=== PATIENT | female | born 1950 | race Caucasian/White ===

== ENCOUNTER 2016-07-03 06:58 | Day surgery (SDC) | payer MEDICARE, OTHER ==
[2016-07-02 09:47] VITALS: BMI 21.4
--- NOTE | 2016-07-03 04:30 | P.GSHP ---
History of Present Illness H&P Date: 07/03/16 CHIEF COMPLAINT: GERD HISTORY OF PRESENT ILLNESS: The patient is a 65-year-old female who presents reports gastroesophageal reflux disease. Upper endoscopy was offered for further evaluation and management. PAST MEDICAL HISTORY: Please see list. PAST SURGICAL HISTORY: Please see list. MEDICATIONS: Please see list. ALLERGIES: Please see list. SOCIAL HISTORY: No illicit drug use FAMILY HISTORY: No reports of Crohn disease or ulcerative colitis. REVIEW OF ORGAN SYSTEMS: CONSTITUTIONAL: No reports of fevers or chills. GI: Denies any blood in stools or constipation. PHYSICAL EXAM: VITAL SIGNS: Stable GENERAL: Well-developed and pleasant in no acute distress. HEENT: No scleral icterus. Extraocular movements grossly intact. Moist buccal mucosa. NECK: Supple without lymphadenopathy. CHEST: Unlabored respirations. Equal bilateral excursions. CARDIOVASCULAR: Regular rate and rhythm. Distal 2+ pulses. ABDOMEN: Soft, nondistended. MUSCULOSKELETAL: No clubbing, cyanosis, or edema. ASSESSMENT: 1. Gastroesophageal reflux disease PLAN: 1. Recommend proceeding with an upper endoscopy Past Medical History Past Medical History: Blood Disorder, Deep Vein Thrombosis (DVT), Fibromyalgia, GERD/Reflux, Osteoarthritis (OA), Thyroid Disorder Additional Past Medical History / Comment(s): MULTIPLE SCLEROSIS. ADRENAL INSUFFICIENCY & PITUITARY INSUFFICIENCY. Hypotension ,vasopressor syncope, FACTOR V LEIDEN. Iron deficient anemia. Hypoglycemia. Chronic nausea. DVT QUINCY LEGS, UTI'S. VARICOSE VEINS. HX: HTN RESOLVED WITH WT LOSS. Daily steroid, osteoporosis, raynauds, insomnia History of Any Multi-Drug Resistant Organisms: None Reported Past Surgical History: Adenoidectomy, Back Surgery, Bariatric Surgery, Section, Cholecystectomy, Hernia Repair, Joint Replacement, Orthopedic Surgery, Tonsillectomy Additional Past Surgical History / Comment(s): HAD ORIGINAL STOMACH STAPLING BY DR. WILLSON, THE REDONE BY DR. WING WITH "3/4" OF STOMACH REMOVED. ORTHO: Quincy feet, quincy hand surg-mult, NECK SURGERY x2, RIGHT ROTATOR CUFF, [place]cy hip replacement, LEFT knee replacement. Left eye surg (TEAR DUCT). Nasal surg. C- section x2. Hernia repair with excess skin removed.back x 2, screw left foot/ removal of neuroma, screws left hand thumb Past Anesthesia/Blood Transfusion Reactions: Previous Problems w/ Anesthesia Additional Past Anesthesia/Blood Transfusion Reaction / Comment(s): States "unable to urinate after surgery for approx 4 days",no problems with prior blood transfusion Past Psychological History: Depression Smoking Status: Never smoker Past Alcohol Use History: Rare Past Drug Use History: None Reported - Past Family History Mother Family Medical History: Cancer, Pulmonary Embolus Additional Family Medical History / Comment(s): bladder cancer, kidney removed, multiple heart bypass surgeries, Father Family Medical History: Cancer, Deep Vein Thrombosis (DVT) Additional Family Medical History / Comment(s): CABG,colorectal CA Sister(s) Family Medical History: Pulmonary Embolus Medications and Allergies Home Medications Medication Instructions Recorded Confirmed Type Cholecalciferol [Vitamin D3] 5,000 unit PO BID 11/04/13 07/02/16 History Loratadine [Claritin] 10 mg PO QAM 11/04/13 07/02/16 History Montelukast [Singulair] 10 mg PO HS 11/04/13 07/02/16 History Lidocaine 5% Oint [Xylocaine 5% 1 applic TOPICAL TID 12/09/13 07/02/16 History Oint] Levothyroxine Sodium [Synthroid] 50 mcg PO QAM 02/11/14 07/02/16 History Ondansetron HCl [Zofran] 8 mg PO Q8HR PRN 06/29/14 07/02/16 History Hydrocortisone Sod Succinate 100 mg INJ DIRECTED PRN 08/10/14 07/02/16 History [Solu-Cortef] Baclofen [Lioresal] 10 mg PO QID 09/28/15 07/02/16 History Biotin 2,500 mcg PO DAILY 09/28/15 07/02/16 History Folic Acid 800 mcg PO DAILY 09/28/15 07/02/16 History Furosemide [Lasix] 40 mg PO QAM 09/28/15 07/02/16 History Hydrocortisone [Cortef] 5 mg PO QAM 09/28/15 07/02/16 History Midodrine [ProAmatine] 5 mg PO BID 09/28/15 07/02/16 History Gabapentin [Neurontin] 200 mg PO QID 06/06/16 07/02/16 History Glucosamine HCl/Chondr Chi A Na 1 each PO DAILY 06/06/16 07/02/16 History [Osteo Bi-Flex Caplet] Ibuprofen [Motrin] 800 mg PO Q8HR PRN 06/06/16 07/02/16 History Interferon Beta-1A [Avonex Pen] 0.5 ml IM MOFR 06/06/16 07/02/16 History Teriparatide [Forteo] 20 mcg SQ DAILY 06/06/16 07/02/16 History Aspirin EC [Ecotrin] 325 mg PO DAILY 06/19/16 07/02/16 History Furosemide [Lasix] 20 mg PO 1600 06/19/16 07/02/16 History Interferon Beta-1A [Avonex Pen] 0.75 ml IM WE 06/19/16 07/02/16 History Multivitamin [Multivitamins Adult 2 each PO DAILY 06/19/16 07/02/16 History Gummies] Nortriptyline HCl [Pamelor] 10 mg PO HS 06/19/16 07/02/16 History Saliva Stimulant Agents Comb.3 1 spray PO BID PRN 06/19/16 07/02/16 History [Biotene Moisturizing Mouth] Allergies Allergy/AdvReac Type Severity Reaction Status Date / Time amoxicillin trihydrate Allergy Nausea & Verified 07/02/16 09:29 [From Augmentin] Vomiting,DIARRHEA,HIVES ciprofloxacin HCl Allergy Rash/Hives, Verified 07/02/16 09:29 [From Cipro] NAUSEA/VOMITING/DIARRHEA clarithromycin [From Biaxin] Allergy Rash/Hives, Verified 07/02/16 09:29 NAUSEA/VOMI TING/DIARRH EA diflunisal [From Dolobid] Allergy Rash/Hives,upset Verified 07/02/16 09:29 stomach ergotamine tartrate Allergy Anaphylaxis Verified 07/02/16 09:29 [From Cafergot] ,SOB metoclopramide HCl Allergy "pseudo Verified 07/02/16 09:29 [From Reglan] parkinsons" metronidazole [From Flagyl] Allergy hives,upset Verified 07/02/16 09:29 stomach,migraine sucralfate [From Carafate] Allergy Swelling Verified 07/02/16 09:29 sulfamethoxazole Allergy Rash/Hives, Verified 07/02/16 09:29 [From Bactrim] NAUSEA,MIGR AINES,diarr hea trimethoprim [From Bactrim] Allergy Rash/Hives, Verified 07/02/16 09:29 NAUSEA,MIGR AINES,diarr hea aspirin AdvReac STATES Verified 07/02/16 09:29 "STOMACH DOES NOT TOLERATE ASPIRIN" can take ecotrin Metronidazole HCl AdvReac hives,upset Verified 07/02/16 09:29 [From Flagyl] stomach,migraine potassium clavulanate AdvReac Nausea & Verified 07/02/16 09:29 [From Augmentin] Vomiting,DIARRHEA,HIVES diflusnisol Allergy Rash/Hives Uncoded 07/02/16 09:31 IV Tylenol Allergy Rash/Hives Uncoded 07/02/16 09:29 states "can take oral tylenol" oral morphine AdvReac Nausea & Uncoded 07/02/16 09:29 Vomiting & Diarrhea
[~2016-07-03 06:58] MED LIST: LACTATED RINGERS 1,000 ML IV SCH; LIDOCAINE 1% 20 ML VIAL (10MG/ML) FOR IV START INTRADERMA PRN
[2016-07-03 08:04] LABS: Glucose,Whole Blood 61 mg/dL (75-99)
[2016-07-03 08:04] LABS: Glucose,Whole Blood <20 mg/dL (75-99)
[2016-07-03 08:06] VITALS: RESP 16; TEMP 97.3
[2016-07-03] MEDS ORDERED: DEXTROSE 50%-WATER 50 ML SYRINGE IVP ONE (08:06)
[2016-07-03] MEDS ORDERED: LIDOCAINE 1% INJ 10MG/ML (20 ML MDV) ONE (08:09)
[2016-07-03] MEDS ORDERED: PROPOFOL 10 MG/ML 20 ML VIAL IV ONE (08:09)
--- NOTE | 2016-07-03 08:29 | P.PCN ---
Date of Procedure: 07/03/16 Description of Procedure: PREOPERATIVE DIAGNOSIS: Dysphagia. s/p Juan Ramon-en-y gastric bypass. Nausea with vomiting. Hypoglycemia. POSTOPERATIVE DIAGNOSIS: Dysphagia. s/p Juan Ramon-en-y gastric bypass. Nausea with vomiting. Hypoglycemia. Gastrojejunal stricture. OPERATION: Esophagogastrojejunoscopy with balloon dilatation from 16 to 20 mm. SURGEON: Linda Ellsworth MD ANESTHESIA: MAC. INDICATIONS: The patient is a 65-year-old female who presents with a history of dysphagia, gastric bypass including nausea and vomiting. Benefits and risks of the procedure were described. Informed consent was obtained. DESCRIPTION: The patient was brought into the endoscopy suite and laid in the left lateral decubitus position. After a timeout was confirmed, the procedure was initiated. An Olympus gastroscope was passed along the posterior oropharynx down to the distal esophagus where the squamocolumnar junction was unremarkable. The gastric pouch was entered. A gastrojejunal stricture of 16 mm was found as the adult gastroscope was 9.5 mm in size. A Sensing Electromagnetic Plus balloon dilator was placed through the scope. Final insufflation up to 20 mm was performed with a total of 2 minutes. The scope was advanced up to 60 cm from the incisors into the Juan Ramon limb. A micropouch was identified. The mucosa of the gastrojejunal anastomosis was intact. Tortuous distal esophagus. However no chronic gastrojejunal marginal ulcer was encountered. No full- thickness injury was encountered. The GI tract was desufflated. The patient tolerated the procedure well. FINDINGS: Squamocolumnar junction with LA grade B erosive esophagitis at 38 cm. Stricture of approximately 16 mm encountered. No chronic gastrojejunal ulceration encountered. Successful balloon dilatation to 20 mm. Diaphragmatic hiatus at 39 cm. Micro-pouch. RECOMMENDATIONS: Upper endoscopy as needed. Plan - Discharge Summary Discharge Medication List Cholecalciferol [Vitamin D3] 5,000 unit PO BID 11/04/13 [History] Loratadine [Claritin] 10 mg PO QAM 11/04/13 [History] Montelukast [Singulair] 10 mg PO HS 11/04/13 [History] Lidocaine 5% Oint [Xylocaine 5% Oint] 1 applic TOPICAL TID 12/09/13 [History] Levothyroxine Sodium [Synthroid] 50 mcg PO QAM 02/11/14 [History] Ondansetron HCl [Zofran] 8 mg PO Q8HR PRN 06/29/14 [History] Hydrocortisone Sod Succinate [Solu-Cortef] 100 mg INJ DIRECTED PRN 08/10/14 [ History] Baclofen [Lioresal] 10 mg PO QID 09/28/15 [History] Biotin 2,500 mcg PO DAILY 09/28/15 [History] Folic Acid 800 mcg PO DAILY 09/28/15 [History] Furosemide [Lasix] 40 mg PO QAM 09/28/15 [History] Hydrocortisone [Cortef] 5 mg PO QAM 09/28/15 [History] Midodrine [ProAmatine] 5 mg PO BID 09/28/15 [History] Hydrocodone/Acetaminophen [[place] 5-325] 1 - 2 each PO Q6HR PRN #60 tab 10/06/15 [Rx] Gabapentin [Neurontin] 200 mg PO QID 06/06/16 [History] Glucosamine HCl/Chondr Chi A Na [Osteo Bi-Flex Caplet] 1 each PO DAILY 06/06/16 [ History] Ibuprofen [Motrin] 800 mg PO Q8HR PRN 06/06/16 [History] Interferon Beta-1A [Avonex Pen] 0.5 ml IM MOFR 06/06/16 [History] Teriparatide [Forteo] 20 mcg SQ DAILY 06/06/16 [History] Aspirin EC [Ecotrin] 325 mg PO DAILY 06/19/16 [History] Furosemide [Lasix] 20 mg PO 1600 06/19/16 [History] Interferon Beta-1A [Avonex Pen] 0.75 ml IM WE 06/19/16 [History] Multivitamin [Multivitamins Adult Gummies] 2 each PO DAILY 06/19/16 [History] Nortriptyline HCl [Pamelor] 10 mg PO HS 06/19/16 [History] Saliva Stimulant Agents Comb.3 [Biotene Moisturizing Mouth] 1 spray PO BID PRN 06/19/16 [History]
[2016-07-03 08:33] VITALS: BP 96/61; PULSE 61
[2016-07-03 08:38] LABS: Glucose,Whole Blood 103 mg/dL (75-99)
== END 2016-07-03 09:13 | disposition home or self-care (01) ==
LOC: ORWHC2ENDO 06:58
PROVIDERS: ATTEND Surgery Plastic and Reconstructive Surgery
DX: K31.89 Other diseases of stomach and duodenum (principal); K21.0 Gastro-esophageal reflux disease with esophagitis; Z98.84 Bariatric surgery status; E16.2 Hypoglycemia, unspecified; M79.7 Fibromyalgia; M19.90 Unspecified osteoarthritis, unspecified site; E07.9 Disorder of thyroid, unspecified; G35 Multiple sclerosis; D68.51 Activated protein C resistance; F32.9 Major depressive disorder, single episode, unspecified; E27.40 Unspecified adrenocortical insufficiency; E23.0 Hypopituitarism; M81.0 Age-related osteoporosis without current pathological fracture; Z86.718 Personal history of other venous thrombosis and embolism; Z79.82 Long term (current) use of aspirin; Z79.1 Long term (current) use of non-steroidal anti-inflammatories (NSAID); Z79.52 Long term (current) use of systemic steroids; Z79.891 Long term (current) use of opiate analgesic; Z79.899 Other long term (current) drug therapy; Z88.6 Allergy status to analgesic agent; Z88.1 Allergy status to other antibiotic agents; Z88.2 Allergy status to sulfonamides; Z88.8 Allergy status to other drugs, medicaments and biological substances
CPT/HCPCS: 43245; J2001; J2704; C1726; 44799; 99153

== ENCOUNTER → 2016-07-31 | Outpatient (CLI) | payer MEDICARE, OTHER ==
[2016-07-31 16:01] VITALS: BP 146/72; PULSE 63; RESP 16; TEMP 97.4; BMI 22.0
--- NOTE | 2016-08-04 17:42 | P.PN ---
Progress Note - Text DATE OF SERVICE: 07/31/2016 CHIEF COMPLAINT: History of dysphagia. HISTORY OF PRESENT ILLNESS: Mouna Jones is a 65-year-old female with multiple bariatric procedures. She had a revision of Juan Ramon-en-Y gastric bypass in 2013 at an outside institution. Her highest weight is 190 pounds. For her height of 5 feet, her ideal body weight is 127 pounds. Today she comes in weighing 114 pounds. She has lost 1 pound in approximately 2 months. Her total weight loss is 76 pounds. She has achieved 120% excess weight loss. Body mass index is reduced from 36.9 down to 22.2. Total BMI point reduction is 14.7. She actually reports mostly dysphagia to solid foods along the neck and oral pharyngeal phase. She has previous history of cervical spine surgery. She also has developed intolerance to gluten as well as soy and milk allergy. Now she presents for further evaluation and management. She has completed an upper endoscopy balloon dilatation without moderate improvement of her upper esophageal and swallowing problems. PAST MEDICAL HISTORY: 1. Morbid obesity, resolved. 2. Osteoporosis. 3. Gastroesophageal reflux disease. 4. Osteoarthritis. 5. Hypertension. 6. Fibromyalgia. 7. Spinal stenosis. 8. Dyslipidemia. PAST SURGICAL HISTORY: 1. Lap band and gastroplasty reversed. 2. Tonsillectomy. 3. Adenoidectomy. 4. Cholecystectomy. 5. Left tear duct repair. 6. . 7. Left foot surgery. 8. Renal surgery. 9. Right foot fracture. 10. Left hand surgery. 11. Right hand surgery. 12. EGD. 13. Colonoscopy. 14. Juan Ramon-en- Y gastric bypass done open. 15. Upper endoscopy with balloon dilatation. MEDICATIONS: 1. Forteo. 2. Biotin. 3. Zofran. 4. Pamelor. 5. Multivitamin. 6. Singulair. 7. Midodrine. 8. Claritin. 9. Synthroid. 10. Avonex. 11. Motrin. 12. Solu-Cortef. 13. Osteo Bi-Flex. 14. Neurontin. 15. Lasix. 16. Folic acid. 17. Vitamin D. 18. Baclofen. 19. Aspirin. 20. [place]. ALLERGIES: 1. AMOXICILLIN. 2. CIPROFLOXACIN. 3. BIAXIN. 4. DOLOBID. 5. CAFERGOT. 6. REGLAN. 7. FLAGYL. 8. CARAFATE. 9. BACTRIM. 10. ASPIRIN. 11. AUGMENTIN. 12. DIFLUSNISOL. 13. IV TYLENOL. 14. ORAL MORPHINE. SOCIAL HISTORY: No current tobacco use. History of occasional alcohol use. FAMILY HISTORY: Significant for morbid obesity including breast cancer, colon cancer and stomach cancer. REVIEW OF SYSTEMS: HEENT: Reports dysphagia, particularly of the oropharyngeal phase. GASTROINTESTINAL: History of gluten and soy milk allergy. Has dumping syndrome with her allergies. MUSCULOSKELETAL: Has diffuse osteoarthritis including multiple previous fractures. CONSTITUTIONAL: Her highest weight is 190 pounds. For her height of 5 feet, her ideal body weight is 127 pounds. Today she comes in weighing 114 pounds. She has lost 1 pound in approximately 2 months. Her total weight loss is 76 pounds. She has achieved 120% excess weight loss. Body mass index is reduced from 36.9 down to 22.2. Total BMI point reduction is 14.7. RHEUMATOLOGIC: New diagnosis of multiple sclerosis causing lupus. ENDOCRINE: Has hypoglycemia. Also has thyroid disorder. CARDIOVASCULAR: No recent chest pain or heart attacks. GENITOURINARY: Denies increasing urinary frequency or blood in urine. NEUROLOGIC: History of headaches, including tingling of the distal extremities. PSYCH: No reports or suicidal ideation. HEMATOLOGIC: Denies any abnormal bleeding or bruising. PHYSICAL EXAM: VITAL SIGNS: 97.4, 63, 16, 146/72; 5 feet and 1/4 inch, 114 pounds. Body mass is a 22.1. ABDOMEN: Soft, nontender, without palpable incisional hernias. GENERAL: Well-developed female in no acute distress. HEENT: No scleral icterus. Extraocular movements are grossly intact. CHEST: Nonlabored respirations. Equal bilateral excursions. CARDIOVASCULAR: Regular rate. MUSCULOSKELETAL: No clubbing or cyanosis. NEURO: No focal or lateralizing signs. Cranial nerves II to XII grossly intact. PSYCH: Appropriate affect. Alert and oriented to person, place, and time. LABS: Bariatric metabolic panel was reviewed, demonstrating hemoglobin normal of 12.4. Coagulation profile was within normal limits. Sodium was low at 133. Potassium was 3.5 low. Chloride was low at 88. Carbon dioxide was elevated at 32. BUN was elevated at 25. The hemoglobin A1c is normal at 5.1. Magnesium was low at 1.5. Prealbumin was low at 17. LDL was elevated at 164. Cholesterol was elevated at 201. HDL was elevated at 65. TSH level was suppressed at 0.364. Trace elements was within normal limits. ASSESSMENT: 1. History of dysphagia, oropharyngeal phase. 2. Food allergies to GLUTEN, SOY and LACTOSE. 3. Hypomagnesemia. 4. Chronic nausea. 5. History of multiple fractures. 6. Osteopenia. 7. Adverse reaction to antacids. 8. Previous history of Juan Ramon-en-Y gastric bypass. 9. Previous history of gastrojejunal anastomotic stricture. 10. Body mass index reduced from 36.9 down to 22.2. 11. History of pituitary gland disorder and insufficiency. 12. Adrenal insufficiency. 13. Thyroid disorder with hypothyroidism. 14. Personal history of multiple sclerosis. PLAN: 1. I have gone over her labs whereby her magnesium is very low. She had previous history of moderate antacids use. Additionally, low magnesium may also propagate chronic nausea. I have started her on magnesium 400 mg daily. 2. Her calcium absorption and osteopenia puts her at risk for additional fractures. Recommend calcium intake at minimum 1200 mg daily in divided doses. 3. As she reports dysphagia including the oral pharyngeal phase, recommend evaluation with the Ears, Nose and Throat provider. Similarly, with her previous history of osteoarthritis with her cervical spine and surgery, this actually may be a bone impingement along to the esophagus. 4. At this time, recommend followup at minimum yearly at the [facility]. 5. I have also described to her that any abdominal pain should be managed at the [facility].
== END | disposition home or self-care (01) ==
LOC: BARWHC3 14:11
PROVIDERS: ATTEND Surgery Plastic and Reconstructive Surgery
DX: Z48.815 Encounter for surgical aftercare following surgery on the digestive system (principal); R13.10 Dysphagia, unspecified; Z91.018 Allergy to other foods; E83.42 Hypomagnesemia; R11.0 Nausea; M85.80 Other specified disorders of bone density and structure, unspecified site; T47.1X5A Adverse effect of other antacids and anti-gastric-secretion drugs, initial encounter; Z98.84 Bariatric surgery status; Z68.22 Body mass index [BMI] 22.0-22.9, adult; E27.40 Unspecified adrenocortical insufficiency; E03.9 Hypothyroidism, unspecified; G35 Multiple sclerosis; E23.0 Hypopituitarism; Z87.898 Personal history of other specified conditions; Z87.310 Personal history of (healed) osteoporosis fracture; Z79.899 Other long term (current) drug therapy; Z88.6 Allergy status to analgesic agent; Z88.8 Allergy status to other drugs, medicaments and biological substances; Z88.1 Allergy status to other antibiotic agents; K21.9 Gastro-esophageal reflux disease without esophagitis; M19.90 Unspecified osteoarthritis, unspecified site; I10 Essential (primary) hypertension; M79.7 Fibromyalgia; M48.00 Spinal stenosis, site unspecified; E78.2 Mixed hyperlipidemia; K31.89 Other diseases of stomach and duodenum
CPT/HCPCS: 99211

== ENCOUNTER → 2016-08-22 | Outpatient (CLI) | payer MEDICARE, OTHER ==
--- NOTE | 2016-08-22 13:30 | MR ---
EXAMINATION TYPE: MR cervical spine wo con DATE OF EXAM: 08/22/2016 11:07 AM COMPARISON: NONE HISTORY: Cervical pain loosening of hardware TECHNIQUE: Multiplanar, multisequence images of the cervical spine were acquired. C2-C3: No evidence for degenerative disc disease. No disc bulge/herniation or protrusion. No Canal stenosis. Foramina are patent bilaterally. C3-C4: No evidence for degenerative disc disease. No disc bulge/herniation or protrusion. No Canal stenosis. Foramina are patent bilaterally. C4-C5: Endplate spurring has mild anterior thecal sac compression. This comes in close approximation with spinal cord. No cord contact is evident. No spinal canal stenosis or neural foraminal stenosis i s present. C5-C6: No focal disc herniation or significant disc bulge is evident. No spinal canal stenosis is pre sent. There is some mild right foraminal narrowing due to uncovertebral joint hypertrophy. C6-C7: No evidence for degenerative disc disease. No disc bulge/herniation or protrusion. No Canal stenosis. Foramina are patent bilaterally. C7-T1: No evidence for degenerative disc disease. No disc bulge/herniation or protrusion. No Canal stenosis. Foramina are patent bilaterally. T1-T2: There is a tiny central disc protrusion. No spinal canal stenosis present. There is some mild anterior thecal sac compression. No cord contact is evident. Neural foramen are patent. Cervical alignment appears normal. Susceptibility artifact from C4 through T1 is evident from an ante rior cervical fusion. Signal within the spinal cord appears preserved. IMPRESSION: 1. Postsurgical changes from anterior cervical fusion. 2. Anterior thecal sac compression from endplate changes C4-5 without cord contact or spinal canal st enosis.
== END ==
LOC: RADMRIMAIN 10:26
PROVIDERS: ATTEND Orthopaedic Surgery
DX: G95.29 Other cord compression (principal); T84.498A Other mechanical complication of other internal orthopedic devices, implants and grafts, initial encounter
CPT/HCPCS: 72141

== ENCOUNTER → 2016-08-27 | Outpatient (CLI) | payer MEDICARE, OTHER ==
[2016-08-27 12:22] VITALS: BP 139/69; PULSE 63; RESP 16; TEMP 98.4
--- NOTE | 2016-08-27 12:46 | P.PN ---
Progress Note - Text Patient returns for followup for chronic neck and back pain with radiation to legs. Patient has undergone caudal ESIs and SIJ injections and was last set up for lumbar MBB in September 2014, but this was canceled due to extensive hardware in the patient's back and a technically challenging procedure. Patient continues on XX and XX medications. Patient denies adverse drug effects from medications. Today, pt denies new-onset weakness, bowel/bladder incontinence, or any other signs or symptoms of cauda equina syndrome. There are no signs of acute intoxication, and no indications of medication diversion or overuse. In addition to above, 13-point review of systems is also negative for chest pain , shortness of breath, changes in vision, changes in hearing, new onset weakness , abdominal pain, diarrhea, extreme fatigue, malaise, fever, skin changes, homicidal or suicidal ideation, or bowel or bladder incontinence. Vital Signs: Reviewed in EMR Gen: WDWN, AAOx3, NAD HEENT: NCAT, EOMI, hearing grossly normal Pulm: resp unlabored Abd: soft, NT, ND Neck: supple, trachea midline ROM in flexion cervical spine: reduced ROM in extension cervical spine: reduced Cervical paravertebral tenderness: + Cervical Facet tenderness: ++ bilateral Spurling's: + RUE Upper extremity: decreased education sales consultant strength secondary to pain ROM in flexion lumbar spine: reduced ROM in extension lumbar spine: reduced Lumbar paravertebral tenderness: + Facet loading: ++ bilateral SI joint tenderness: + R >> L Twan's test: + R > L Straight leg raise: + RLE at 20 degrees Neuro: CN II-XII grossly intact, muscle strength lower extremities PRESERVED Imaging: MRI cervical spine demonstrates endplate spurring with mild anterior thecal sac compression at the C4-C5 level and some mild right foraminal narrowing at the C5-C6 level secondary to facet joint hypertrophy. At the T1- T2 level there is a tiny central disc protrusion with some mild anterior thecal sac compression without cord contact evident. Assessment: 1. cervical spondylosis without myelopathy 2. cervical PLPS 3. lumbar spondylosis without myelopathy 4. lumbar PLPS 5. lumbar radiculopathy Plan: 1. Explanation: Opioid and psychological risk scores were reviewed. Diagnoses , prognoses, and multiple treatment options including but not limited to physical therapy, interventional therapies, adjuvant medical therapies, narcotic medication therapies, and surgery were discussed with the patient and all questions were answered to the patient's satisfaction. 2. Opioid agreement: no opioids prescribed today 3. Counseling: The patient was counseled extensively on SMOKING CESSATION, BODY MASS INDEX, EXERCISE. Specifically, the patient was instructed regarding the importance of smoking cessation, obesity, and exercise in the context of both chronic pain and overall health. 4. Procedures: caudal RADHA with epidurolysis (will avoid MBB/RFA given technical problems when last done in 2014) 5. Consultations: None 6. Investigations: None 7. Medications: none prescribed 8. Disposition: f/u for procedure as scheduled PQRS measures: 1-Patient's medications are documented in the chart. 2-Tobacco use is negative 3-Patient has had a pneumococcal vaccine. 4-Advanced care planning discussed, patient unable to give. 5-Opioid contract NOT signed with the patient as no opioids prescribed. 6-Pain positive, follow-up visit or procedure scheduled 7-Patient's blood pressure measured and documented, and patient will follow up with the primary care due to hypertension. 8-Patient's weight was measured, and body mass index within the normal limits. 9-Patient WAS NOT identified as an unhealthy alcohol user.
== END | disposition home or self-care (01) ==
LOC: PNWHC3 11:55
PROVIDERS: ATTEND Anesthesiology
DX: G89.29 Other chronic pain (principal); M47.812 Spondylosis without myelopathy or radiculopathy, cervical region; M96.1 Postlaminectomy syndrome, not elsewhere classified; M47.816 Spondylosis without myelopathy or radiculopathy, lumbar region; M54.16 Radiculopathy, lumbar region; I10 Essential (primary) hypertension; M51.35 Other intervertebral disc degeneration, thoracolumbar region; Z98.890 Other specified postprocedural states
CPT/HCPCS: 99211

== ENCOUNTER 2016-08-30 08:13 | Day surgery (SDC) | payer MEDICARE, OTHER ==
[~2016-08-30 08:13] MED LIST changes: -LACTATED RINGERS 1,000 ML IV SCH; -LIDOCAINE 1% 20 ML VIAL (10MG/ML) FOR IV START INTRADERMA PRN; +PREMYELOGRAM MEDICATION REVIEW 1 EACH MISC PO ONE
[2016-08-30 08:34] VITALS: TEMP 97.8
[2016-08-30] MEDS ORDERED: DIAZEPAM 5 MG TAB PO STA (08:36)
[2016-08-30 09:22] LABS: Glucose,Whole Blood 96 mg/dL (75-99)
[2016-08-30] MEDS ORDERED: HYDROcodone/APAP 10-325MG 1 EACH TAB PO ONE (10:13)
[2016-08-30 10:15] VITALS: PULSE 61
--- NOTE | 2016-08-30 12:00 | CT ---
EXAMINATION TYPE: CT cervical spine w con DATE OF EXAM: 08/30/2016 10:40 AM COMPARISON: MRI 08/22/2016 HISTORY: 65-year-old female with cervicalgia, neck pain, cervical fusion approximately 3 years ago pe r patient. TECHNIQUE: Contiguous axial scanning of the cervical spine performed after intrathecal administratio n of contrast material via a lumbar puncture access. Refer to myelogram report of the same day for de tails. Coronal and sagittal reconstructions performed. CT DLP: 238.2 mGycm Automated exposure control for dose reduction was used. FINDINGS: No craniocervical junction abnormality, predental space widening, or prevertebral soft tissue swellin g. Normal alignment of the cervical spine with reversal of the normal cervical lordosis in the mid cervi dasha spine.. There are postsurgical changes of ACDF extending from C4 down to T1 levels. Incomplete bony bridging across C4-C5. There is lateral and central bony bridging across C5 and C6. There appears to be bony bridging across the interbody cage at C6-C7 but not significantly so across the remainder of the intervertebral space. The C7-T1 interbody device is noted to have more surroundi ng lucency along the posterior margin of the T1 superior endplate but overall position of this interb esthela device appears similar. No significant interbody bony fusion seen across at C7-T1. Posterior osteophytic ridging at C4-C5 and scattered ligamentum flavum thickening. Changes result in variable mild narrowing of the spinal canal from C4 through C7 levels which are fus ed levels. There is abutment and slight indentation of the ventral cord at C4-C5. At C4-C5, there is moderate right greater than left neuroforaminal stenosis. At C5-C6, there is mild right greater than left neuroforaminal stenosis. At C6-C7, there is mild to moderate left and mild right neuroforaminal stenosis. At C7-T1, mild right-sided neural foraminal stenosis. Intrathecal contrast has entered the cisterna magna and basal cisterns. IMPRESSION: 1. STATUS POST C4-T1 ACDF. THERE IS INCOMPLETE INTERBODY ANKYLOSIS AT C4-C5. BONY FUSION IS SEEN AT C 6-C7 ONLY ACROSS THE INTERBODY CAGE. SATISFACTORY INTERBODY ANKYLOSIS ACROSS C5-C6. AT C7-T1, WHILE O VERALL POSITIONING OF THE INTERBODY DEVICE IS SIMILAR, THERE IS INCREASING LUCENCY ALONG ITS POSTERIO R MARGIN INVOLVING THE T1 SUPERIOR ENDPLATE. CONTINUED MOVEMENT OF THE C7-T1 INTERBODY DEVICE IS DIFF ICULT TO EXCLUDE. NO EVIDENT SCREW LOOSENING IS SEEN. 2. VARIABLE MILD SPINAL CANAL STENOSES ESPECIALLY FROM C4 THROUGH C7 WHICH CORRESPOND TO THE FUSED LE VELS. THERE MILD INDENTATION ONTO THE VENTRAL CORD AT C4-C5 SEEN ON MRI. NO HIGH-GRADE CANAL COMPR OMISE. 3. VARIABLE MILD TO MODERATE NEUROFORAMINAL STENOSES THROUGHOUT OUTLINED ABOVE.
[2016-08-30 12:18] VITALS: RESP 18
[2016-08-30] MEDS ORDERED: ACETAMINOPHEN TAB 325 MG TAB PO STA (13:50)
[2016-08-30 17:12] VITALS: BP 138/80
--- NOTE | 2016-09-02 08:32 | FL ---
Procedure: Lumbar puncture for cervical myelogram Date: 08/30/2016 Clinical History: 65-year-old female with cervicalgia and neck pain, multiple prior surgeries. Complications: None. Sedation: 5 mg Versed. The patient and the patient's vital signs were monitored by qualified [facility] radiology personnel. Technique: The procedure and potential risks were explained to patient and an informed consent was o btained with teach back. Site and side was verified. A time out was performed. The patient was placed prone on the fluoroscopy table and the L3-L4 level was localized and the skin was marked and was prepped and draped in the usual sterile fashion. Lidocaine was used for local anes thesia. Utilizing fluoroscopic guidance a 22-gauge spinal needle was placed through the skin and into the subarachnoid space. Clear CSF was visualized. Subsequently, 12 mL of Omnipaque 240 contrast material was injected into the subarachnoid space with injection confirmed on fluoroscopy. The patient was manipulated on the table to get the contrast column to the level of the cervical spin e. The needle was removed, hemostasis obtained, and a dressing placed. The patient tolerated the procedu re well and was sent to the CT suite for CT cervical myelogram. The estimated blood loss was minimal. The patient's condition was unchanged following the procedure. Fluoroscopy time: 1 minute 20 seconds IMPRESSION: Successful lumbar puncture with contrast injection for CT cervical myelogram.
== END 2016-08-30 15:20 | disposition home or self-care (01) ==
LOC: RADPROMAIN 08:13
PROVIDERS: ATTEND Orthopaedic Surgery
DX: M48.06 Spinal stenosis, lumbar region (principal); M51.36 Other intervertebral disc degeneration, lumbar region; F32.9 Major depressive disorder, single episode, unspecified; M79.7 Fibromyalgia; I10 Essential (primary) hypertension; E03.9 Hypothyroidism, unspecified; M81.0 Age-related osteoporosis without current pathological fracture; Z79.899 Other long term (current) drug therapy; Z88.1 Allergy status to other antibiotic agents; Z88.5 Allergy status to narcotic agent; Z88.0 Allergy status to penicillin; Z88.2 Allergy status to sulfonamides; Z91.09 Other allergy status, other than to drugs and biological substances
CPT/HCPCS: 62302; 72126; Q9966; 62284

== ENCOUNTER → 2016-09-10 | Outpatient (CLI) | payer MEDICARE, OTHER ==
--- NOTE | 2016-09-10 11:32 | NM ---
EXAMINATION TYPE: NM bone 3 phase DATE OF EXAM: 09/10/2016 11:07 AM COMPARISON: CT abdomen pelvis July HISTORY: M 51.36, right hip pain Triple phase bone scintigraphy was performed following the injection of27 mCi Tc 99m MDP. Immediate images and 3 hours post injection images acquired. FINDINGS: Photopenic areas are present within the bilateral hips compatible with arthroplasties. There is some mild uptake along the diaphysis of the level of the femoral component tip on delayed imaging on the l eft. IMPRESSION: Nonspecific uptake at the level of the peripheral aspect of the femoral component of the left hip pro sthesis, correlate for pain, findings could represent stress changes, difficult to exclude loosening, infection. Follow-up as indicated.
== END | disposition home or self-care (01) ==
LOC: RADNMMAIN 07:23
PROVIDERS: ATTEND Orthopaedic Surgery
DX: M51.36 Other intervertebral disc degeneration, lumbar region (principal); M48.06 Spinal stenosis, lumbar region
CPT/HCPCS: 78315; A9503

== ENCOUNTER 2016-09-19 06:35 | Day surgery (SDC) | payer MEDICARE, OTHER ==
[2016-09-17 10:38] VITALS: BMI 22.0
[2016-09-19 07:03] VITALS: RESP 16; TEMP 97.2
[2016-09-19] MEDS ORDERED: LACTATED RINGERS 1,000 ML IV ONE (07:11)
[2016-09-19 07:14] LABS: Glucose,Whole Blood 125 mg/dL (75-99)
[2016-09-19] MEDS ORDERED: LACTATED RINGERS 1,000 ML IV SCH (07:45)
[2016-09-19] MEDS ORDERED: MIDAZOLAM 2 MG/2 ML VIAL ONE (07:48)
[2016-09-19] MEDS ORDERED: fentaNYL (PF) 50 MCG/ML 2 ML AMP ONE (07:48)
[2016-09-19] MEDS ORDERED: IOHEXOL 180 MG/ML 1 ML ML ONE (07:48)
[2016-09-19] MEDS ORDERED: TRIAMCINOLONE ACETONIDE 40 MG/ML 1 ML VIAL ONE (07:48)
--- NOTE | 2016-09-19 08:36 | P.PCN ---
Date of Procedure: 09/19/16 Surgeon: Damien Jamil Pathology: none sent Condition: stable Disposition: PACU Description of Procedure: PREOP DIAGNOSIS: Lumbar postlaminectomy syndrome POSTOP DIAGNOSIS: Lumbar postlaminectomy syndrome PROCEDURE: Caudal epidural steroid injection with epidurolysis and epidurogram under fluoroscopic guidance ANESTHESIA: Local with 1% lidocaine; conscious sedation EBL: Minimal. PROCEDURE INDICATION: The patient with post-laminectomy syndrome with low back pain and radiculopathy radiating down in both legs, here for a caudal epidural steroid injection with epidurolysis, #1 in series. Patient does not use any blood thinning medications. PROCEDURE DESCRIPTION: The patient was seen and identified in the preoperative area. Risks, benefits, complications, and alternatives were discussed with the patient including but not limited to bleeding, infection, nerve damage, incomplete pain relief, and allergic reactions to medications. The patient agreed to proceed with the procedure and signed the consent after all questions were answered. IV was started, and vital signs were stable. Patient was taken to the OR and time out was completed to verify proper patient , procedure, laterality of pain, and allergies. The patient was placed in the prone position on procedure table and a pillow was placed under the abdomen to reduce lumbar lordosis. The lumbosacral area was prepped and draped in the usual sterile fashion. Critical pause was taken. Vital signs were closely monitored during the procedure. Fluoroscopic camera was placed in the lateral view and the anterior-posterior plates of the sacrum were identified with infiltration of the area overlying the sacral hiatus with 1% lidocaine. I attempted multiple times to access the caudal epidural space from multiple angles and felt the reduction in pressure by passing through the sacrococcygeal ligament multiple times, but each time was unable to pass the catheter into the epidural space, and it stopped at the same specific point each time; this led me to believe that there was/is some osseous or other obstruction preventing the catheter from advancing. After three unsuccessful attempts where I believed that the catheter was in the epidural space but unable to advance the catheter further with both tactile feel and fluoroscopic guidance, I aborted the procedure. COMPLICATIONS: None. DISPOSITION / PLANS: The patient was placed in a supine position and transferred to the recovery area in a stable condition for observation and was discharged from the recovery room after meeting discharge criteria. Home discharge instructions given to the patient by the staff. The patient was reexamined prior to discharge. The patient will schedule a follow up in the clinic in 2-4 weeks. I will order X-rays of the sacrum/coccyx to rule out osseous obstruction in or near the caudal canal. It should be noted that this patient has had very technically difficult procedures in the past as well, as documented by Dr. Frazier in 2014.
[2016-09-19 08:57] VITALS: BP 107/67; PULSE 55
--- NOTE | 2016-09-19 08:57 | FL ---
FLUOROSCOPY 45 seconds of fluoroscopy time were utilized during attempted pain injection. 0 images document the p rocedure.
== END 2016-09-19 09:15 | disposition home or self-care (01) ==
LOC: ORPAIN 06:35
PROVIDERS: ATTEND Anesthesiology
DX: M96.1 Postlaminectomy syndrome, not elsewhere classified (principal); M47.812 Spondylosis without myelopathy or radiculopathy, cervical region; M47.26 Other spondylosis with radiculopathy, lumbar region
CPT/HCPCS: 99153; 62264; 99152; J2250; J3301; Q9965; J3010; 72220

== ENCOUNTER → 2016-09-19 | Outpatient (CLI) | payer MEDICARE, OTHER ==
--- NOTE | 2016-09-19 10:23 | XR ---
EXAMINATION TYPE: XR sacrum coccyx DATE OF EXAM: 09/19/2016 10:15 AM CLINICAL HISTORY: pain TECHNIQUE: Three views of the sacrum and coccyx are submitted. COMPARISON: None Sacral alae appear symmetric. No evidence for acute fracture or bony lesion. Sacrococcygeal junction anterior spurring and mild angulation. Sacroiliac joints are within normal limits. Visualized coccy geal segments are free of acute fracture or lesion. Pedicular screws lumbar spine. IMPRESSION: Sacrococcygeal junction anterior spurring and mild angulation.
== END | disposition home or self-care (01) ==
LOC: RADXRMAIN 09:44
PROVIDERS: ATTEND Anesthesiology
DX: M46.08 Spinal enthesopathy, sacral and sacrococcygeal region (principal); M43.8X8 Other specified deforming dorsopathies, sacral and sacrococcygeal region
CPT/HCPCS: 72220

== ENCOUNTER 2017-01-30 18:27 | Inpatient (IN) | payer MEDICARE, OTHER ==
[2017-01-30] MEDS ORDERED: RX INFO: IV CONTRAST WAS GIVEN 1 EACH MISC MISCELLANE PRN (19:02)
--- NOTE | 2017-01-30 19:06 | ED ---
General Adult HPI - General Chief complaint: Dizziness Stated complaint: Sepsis Time Seen by Provider: 01/30/17 18:40 Source: patient, RN notes reviewed Mode of arrival: EMS Limitations: no limitations - History of Present Illness Initial comments: This is a 66-year-old female who presents to the emergency room from [facility]. They called us stated he thought the patient might have urosepsis so they sent her to us patient states last night she was feeling weak and at her facility they took her blood pressure blood pressure was low and she states they took her temperature and found that she had a fever however the patient has yet to have a fever at [place] or our facility today. Patient states she also has chronic lower back pain but today her back pain is much worse. Patient had a few white cells in her urine with nitrite positive and had a high white count so they gave the patient vancomycin and is active and because she is ALLERGIC to most other antibiotics. Patient remained somewhat hypotensive at 93 systolic currently. Patient did receive a liter prior to arrival in the hospital. Patient still contains a back pain but she is also complaining of some abdominal pain at this time per patient denies nausea vomiting or diarrhea. Patient states she still feels extremely weak especially if she sits up. - Related Data Home Medications Medication Instructions Recorded Confirmed Cholecalciferol [Vitamin D3] 5,000 unit PO BID 11/04/13 01/30/17 Loratadine [Claritin] 10 mg PO DAILY 11/04/13 01/30/17 Montelukast [Singulair] 10 mg PO HS 11/04/13 01/30/17 Levothyroxine Sodium [Synthroid] 50 mcg PO DAILY 02/11/14 01/30/17 Ondansetron HCl [Zofran] 8 mg PO Q8HR PRN 06/29/14 01/30/17 Baclofen [Lioresal] 10 mg PO QID 09/28/15 01/30/17 Furosemide [Lasix] 40 mg PO DAILY 09/28/15 01/30/17 Hydrocortisone [Cortef] 5 mg PO DAILY 09/28/15 01/30/17 Gabapentin [Neurontin] 200 mg PO QID 06/06/16 01/30/17 Fluticasone Nasal [place] [Flonase 1 spr EA NOSTRIL DAILY 08/20/16 01/30/17 Nasal [place]] Glucagon Emergency Kit 1 mg IM ONCE PRN 08/20/16 01/30/17 ALPRAZolam [Xanax] 0.25 mg PO Q8HR PRN 01/30/17 01/30/17 Acetaminophen [Tylenol] 650 mg PO Q4H 01/30/17 01/30/17 Docusate [Colace] 100 mg PO BID 01/30/17 01/30/17 Enoxaparin [Lovenox] 40 mg SQ DAILY 01/30/17 01/30/17 Polyethylene Glycol 3350 [Miralax] 17 gm PO DAILY 01/30/17 01/30/17 Senokot Extra 17.2mg 17.2 mg PO HS 01/30/17 01/30/17 oxyCODONE-APAP 5-325MG [Percocet 2 tab PO Q4HR PRN 01/30/17 01/30/17 5-325 mg] Previous Rx's Medication Instructions Recorded Magnesium Oxide [Magox 400] 400 mg PO DAILY #60 tablet 07/31/16 Allergies Allergy/AdvReac Type Severity Reaction Status Date / Time amoxicillin trihydrate Allergy Nausea & Verified 01/30/17 19:32 [From Augmentin] Vomiting,DIARRHEA,HIVES ciprofloxacin HCl Allergy Rash/Hives, Verified 01/30/17 19:32 [From Cipro] NAUSEA/VOMITING/DIARRHEA clarithromycin [From Biaxin] Allergy Rash/Hives, Verified 01/30/17 19:32 NAUSEA/VOMI TING/DIARRH EA diflunisal [From Dolobid] Allergy Rash/Hives,upset Verified 01/30/17 19:32 stomach ergotamine tartrate Allergy Anaphylaxis Verified 01/30/17 19:32 [From Cafergot] ,SOB hydromorphone [From Dilaudid] Allergy Unknown Verified 01/30/17 19:32 metoclopramide HCl Allergy "pseudo Verified 01/30/17 19:32 [From Reglan] parkinsons" metronidazole [From Flagyl] Allergy hives,upset Verified 01/30/17 19:32 stomach,migraine sucralfate [From Carafate] Allergy Swelling Verified 01/30/17 19:32 sulfamethoxazole Allergy Rash/Hives, Verified 01/30/17 19:32 [From Bactrim] NAUSEA,MIGR AINES,diarr hea trimethoprim [From Bactrim] Allergy Rash/Hives, Verified 01/30/17 19:32 NAUSEA,MIGR AINES,diarr hea aspirin AdvReac STATES Verified 01/30/17 19:32 "STOMACH DOES NOT TOLERATE ASPIRIN" can take ecotrin Metronidazole HCl AdvReac hives,upset Verified 01/30/17 19:32 [From Flagyl] stomach,migraine potassium clavulanate AdvReac Nausea & Verified 01/30/17 19:32 [From Augmentin] Vomiting,DIARRHEA,HIVES diflusnisol Allergy Rash/Hives Uncoded 09/17/16 10:39 IV Tylenol Allergy Rash/Hives Uncoded 09/17/16 10:39 states "can take oral tylenol" oral morphine AdvReac Nausea & Uncoded 09/17/16 10:39 Vomiting & Diarrhea Review of Systems ROS Statement: Those systems with pertinent positive or pertinent negative responses have been documented in the HPI. ROS Other: All systems not noted in ROS Statement are negative. Past Medical History Past Medical History: Asthma, Blood Disorder, Deep Vein Thrombosis (DVT), Fibromyalgia, Osteoarthritis (OA), Thyroid Disorder Additional Past Medical History / Comment(s): MULTIPLE SCLEROSIS. ADRENAL INSUFFICIENCY & PITUITARY INSUFFICIENCY. Hypotension ,vasopressor syncope, FACTOR V LEIDEN. Iron deficient anemia. Hypoglycemia. Chronic nausea. DVT ADELINA LEGS, UTI'S. VARICOSE VEINS. HX: HTN RESOLVED WITH WT LOSS. Daily steroid, osteoporosis, raynauds, insomnia, allergic asthma, chronic fatigue, Mariano Castillo. History of Any Multi-Drug Resistant Organisms: None Reported Past Surgical History: Adenoidectomy, Back Surgery, Bariatric Surgery, Section, Cholecystectomy, Hernia Repair, Joint Replacement, Orthopedic Surgery, Tonsillectomy Additional Past Surgical History / Comment(s): HAD ORIGINAL STOMACH STAPLING BY DR. WILLSON, THE REDONE BY DR. WING WITH "3/4" OF STOMACH REMOVED. ORTHO: Adelina feet, adelina hand surg-mult, NECK SURGERY x2, RIGHT ROTATOR CUFF, Adelina hip replacement, LEFT knee replacement. Left eye surg (TEAR DUCT). Nasal surg. C- section x2. Hernia repair with excess skin removed.back x 2, screw left foot/ removal of neuroma, screws left hand thumb Past Anesthesia/Blood Transfusion Reactions: Previous Problems w/ Anesthesia Additional Past Anesthesia/Blood Transfusion Reaction / Comment(s): States "unable to urinate after surgery for approx 4 days",no problems with prior blood transfusion Past Psychological History: Depression Smoking Status: Never smoker Past Alcohol Use History: Rare Past Drug Use History: None Reported - Past Family History Mother Family Medical History: Cancer, Pulmonary Embolus Additional Family Medical History / Comment(s): bladder cancer, kidney removed, multiple heart bypass surgeries, Father Family Medical History: Cancer, Deep Vein Thrombosis (DVT) Additional Family Medical History / Comment(s): CABG,colorectal CA Sister(s) Family Medical History: Pulmonary Embolus General Exam - General Exam Comments Initial Comments: GENERAL: Patient is well-developed and well-nourished. Patient is nontoxic and well- hydrated and is in mild distress. ENT: Neck is soft and supple. No significant lymphadenopathy is noted. Oropharynx is clear. Moist mucous membranes. Neck has full range of motion without eliciting any pain. EYES: The sclera were anicteric and conjunctiva were pink and moist. Extraocular movements were intact and pupils were equal round and reactive to light. Eyelids were unremarkable. PULMONARY: Unlabored respirations. Good breath sounds bilaterally. No audible rales rhonchi or wheezing was noted. CARDIOVASCULAR: There is a regular rate and rhythm without any murmurs gallops or rubs. ABDOMEN: Patient has lower abdominal tenderness or so on the left than the right. No rebound or guarding SKIN: Skin is clear with no lesions or rashes and otherwise unremarkable. NEUROLOGIC: Patient is alert and oriented x3. Cranial nerves II through XII are grossly intact. Motor and sensory are also intact. Normal speech, volume and content. Symmetrical smile. MUSCULOSKELETAL: Normal extremities with adequate strength and full range of motion. No lower extremity swelling or edema. No calf tenderness. LYMPHATICS: No significant lymphadenopathy is noted PSYCHIATRIC: Normal psychiatric evaluation. Limitations: no limitations Course Vital Signs 01/30/17 01/30/17 18:37 19:57 Temperature 98.4 F 98.4 F Pulse Rate 71 70 Respiratory 20 20 Rate Blood Pressure 93/51 93/56 O2 Sat by Pulse 96 98 Oximetry Medical Decision Making - Medical Decision Making EKG shows normal sinus rhythm at 68 bpm SD interval 170 QRS is 82 QT interval 412 QTC is 438. Patient's EKG shows no ST segment elevation or depression or T wave normalities are noted. Dr. Patel will be taking over the care of this patient at 7:30 Disposition Referrals: Mike Suh MD [Primary Care Provider] - 1-2 days
[2017-01-30] MEDS: SODIUM CHLORIDE 0.9% 500 ML IV SCH (19:58)
[2017-01-30 20:07] LABS: Basophils % (A) 0 %; CH 30.2; CHCM 33.3; Eosinophils # (A) 0.1 k/uL (0-0.7); Eosinophils % (A) 0 %; HCT 29.9 % (34.0-46.0); HDW 2.75; HGB 10.1 gm/dL (11.4-16.0); Luc # (Auto) 0.09; Luc % (Auto) 1; Lymphocytes # (A) 0.6 k/uL (1.0-4.8); Lymphocytes % (A) 3 %; MCH 30.7 pg (25.0-35.0); MCHC 33.8 g/dL (31.0-37.0); Mean Platelet Volume 6.7; Monocytes # (A) 0.3 k/uL (0-1.0); Monocytes % (A) 2 %; Neutrophils # (A) 17.3 k/uL (1.3-7.7); Neutrophils % (A) 94 %; RBC 3.29 m/uL (3.80-5.40); RDW 14.3 % (11.5-15.5); WBC 18.3 k/uL (3.8-10.6); WBC (Perox) 19.04
[2017-01-30 20:19] LABS: Partial Thromboplastin Time 26.1 sec (22.0-30.0); Prothrombin Time 10.4 sec (9.0-12.0)
[2017-01-30 20:22] LABS: ALT 33 U/L (9-52); AST 37 U/L (14-36); Alkaline Phosphatase 73 U/L (38-126); Anion Gap 7 mmol/L; Blood Urea Nitrogen 15 mg/dL (7-17); Calcium 8.1 mg/dL (8.4-10.2); Carbon Dioxide 25 mmol/L (22-30); Chloride 102 mmol/L (98-107); Glucose 103 mg/dL (74-99); Non-African American GFR(MDRD) >60 (>60 ml/min/1.73 sqM); Potassium 3.8 mmol/L (3.5-5.1); Sodium 134 mmol/L (137-145); Total Bilirubin 0.5 mg/dL (0.2-1.3); Total Protein 4.9 g/dL (6.3-8.2)
--- NOTE | 2017-01-30 20:22 | CT ---
EXAMINATION TYPE: CT abdomen pelvis w con DATE OF EXAM: 01/30/2017 COMPARISON: CT August 10, 2014 HISTORY: Pain CT DLP: 958 mGycm. Automated exposure control for dose reduction was used. TECHNIQUE: Helical acquisition of images was performed from the lung bases through the pelvis. CONTRAST: Intravenous administration of 100 mL of Omnipaque 300. FINDINGS: LUNG BASES: No significant abnormality is appreciated. LIVER/GB: No significant abnormality is appreciated. PANCREAS: No significant abnormality is seen. SPLEEN: No significant abnormality is seen. ADRENALS: No significant abnormality is seen. KIDNEYS: No significant abnormality is seen. FREE AIR: No free air is visualized. RETROPERITONEAL ADENOPATHY: None visualized REPRODUCTIVE ORGANS: No significant abnormality is seen. URINARY BLADDER: The bladder is prominently distended, extending cephalad to the level of the umbilic us, with etiology unclear. There is a small volume of nondependent gas seen within the urinary bladde r, presumably from recent bladder instrumentation. PELVIC ADENOPATHY: None visualized. OSSEOUS STRUCTURES: No significant abnormality is seen. BOWEL: No significant abnormality is seen. No bowel obstruction. VASCULATURE: There are widespread intimal atherosclerotic calcifications throughout the arterial elina lydia, particularly prominent at the aortic bifurcation. IMPRESSION: 1. PROMINENTLY DISTENDED BLADDER, CONTAINING NONDEPENDENT GAS BUBBLES; NO OTHER ACUTE FINDINGS. 2. WIDESPREAD ATHEROSCLEROTIC INTIMAL CALCIFICATION IS NOTED, PARTICULARLY PROMINENT AT THE AORTIC BI FURCATION.
[2017-01-30 20:27] LABS: Creatine Kinase <20 U/L (30-135)
[2017-01-30 20:40] LABS: Creatine Kinase MB <0.2 ng/mL (0.0-2.4); Troponin I <0.012 ng/mL (0.000-0.034)
[2017-01-30 21:57] LABS: Appearance,Urine Cloudy (Clear); Bacteria,Urine Moderate /hpf; Bilirubin,Urine Negative (Negative); Glucose,Urine (UA) Negative (Negative); Ketones,Urine Negative (Negative); Leukocyte Esterase,Urine Large (Negative); Mucus,Urine Rare /hpf; Nitrite,Urine Positive (Negative); PH, Urine 5.5 (5.0-8.0); Particle Count 63014; Protein,Urine Negative (Negative); RBC,Urine 5 /hpf (0-5); Specific Gravity,Urine 1.008 (1.001-1.035); UA Billing (MACRO vs. MICRO) MICRO; Urobilinogen,Urine <2.0 mg/dL (<2.0); WBC,Urine 48 /hpf (0-5)
[2017-01-30] MEDS ORDERED: LEVOFLOXACIN 750MG-D5W PMX 750 MG in DEXTROSE/WATER 1 150ML.BAG IVPB STA (22:21)
[2017-01-30] MEDS ORDERED: NALOXONE 0.4 MG/ML 1 ML VIAL IV PRN (23:15)
[2017-01-30] MEDS ORDERED: oxyCODONE-APAP 5-325MG 1 EACH TAB PO STA (23:18)
[2017-01-30] MEDS ORDERED: IV VANCOMYCIN PER PHARMACY 1 EACH MISC MISCELLANE PRN (23:22)
[2017-01-31] MEDS ORDERED: VANCOMYCIN 750 MG in SODIUM CHLORIDE 0.9% 250 ML IVPB ONE (01:00)
[2017-01-31 01:09] VITALS: BMI 20.7
[2017-01-31] MEDS: ACETAMINOPHEN TAB 325 MG TAB PO SCH ×2 (04:25→05:27)
[2017-01-31] MEDS: oxyCODONE-APAP 5-325MG 1 EACH TAB PO PRN ×2 (05:29→09:28)
[2017-01-31] MEDS ORDERED: VANCOMYCIN 750 MG in SODIUM CHLORIDE 0.9% 250 ML IVPB SCH (06:00)
[2017-01-31] MEDS ORDERED: LEVOTHYROXINE 50 MCG TAB PO SCH (06:30)
[2017-01-31 08:07] LABS: Glucose,Whole Blood 85 mg/dL (75-99)
[2017-01-31 08:46] LABS: Basophils % (A) 0 %; CH 30.8; CHCM 32.3; Eosinophils # (A) 0.2 k/uL (0-0.7); Eosinophils % (A) 1 %; HDW 2.68; HGB 10.3 gm/dL (11.4-16.0); Luc # (Auto) 0.15; Luc % (Auto) 1; Lymphocytes # (A) 1.2 k/uL (1.0-4.8); Lymphocytes % (A) 7 %; MCHC 31.3 g/dL (31.0-37.0); MCV 95.8 fL (80.0-100.0); Mean Platelet Volume 6.7; Monocytes # (A) 0.5 k/uL (0-1.0); Monocytes % (A) 3 %; Neutrophils # (A) 15.3 k/uL (1.3-7.7); Neutrophils % (A) 88 %; RBC 3.44 m/uL (3.80-5.40); RDW 14.4 % (11.5-15.5); WBC 17.3 k/uL (3.8-10.6); WBC (Perox) 18.22
[2017-01-31] MEDS ORDERED: FUROSEMIDE 40 MG TAB PO SCH (09:00)
[2017-01-31 09:15] LABS: ALT 25 U/L (9-52); AST 26 U/L (14-36); Alkaline Phosphatase 74 U/L (38-126); Anion Gap 8 mmol/L; Blood Urea Nitrogen 12 mg/dL (7-17); Calcium 8.6 mg/dL (8.4-10.2); Carbon Dioxide 26 mmol/L (22-30); Chloride 99 mmol/L (98-107); Glucose 82 mg/dL (74-99); Non-African American GFR(MDRD) >60 (>60 ml/min/1.73 sqM); Potassium 3.3 mmol/L (3.5-5.1); Sodium 133 mmol/L (137-145); Total Bilirubin 0.4 mg/dL (0.2-1.3); Total Protein 5.4 g/dL (6.3-8.2)
[2017-01-31] MEDS: GABAPENTIN 100 MG CAP PO SCH ×4 (09:20→21:09)
[2017-01-31] MEDS: HYDROCORTISONE 10 MG TAB PO SCH (09:21)
[2017-01-31] MEDS: CHOLECALCIFEROL 1,000 UNIT TAB PO SCH ×2 (09:21→20:37)
[2017-01-31] MEDS: BACLOFEN 10 MG TAB PO SCH ×4 (09:21→21:08)
[2017-01-31] MEDS: MAGNESIUM OXIDE 400 MG TAB PO SCH (09:21)
[2017-01-31] MEDS: DOCUSATE 100 MG CAP PO SCH ×2 (09:21→20:38)
[2017-01-31] MEDS: ENOXAPARIN 40 MG/0.4 ML SYRINGE SQ SCH (09:22)
[2017-01-31] MEDS: FLUTICASONE 50MCG/SPRAY NASAL 16GM EA NOSTRIL SCH (09:22)
[2017-01-31] MEDS ORDERED: Potassium Replacement Protocol 1 EACH MISC MISCELLANE PRN (11:01)
[2017-01-31] MEDS ORDERED: POTASSIUM CHLORIDE ER 20 MEQ TAB.ER PO STA (12:43)
[2017-01-31 13:16] LABS: Glucose,Whole Blood 87 mg/dL (75-99)
[2017-01-31] MEDS: SODIUM CHLORIDE 0.9% 1,000 ML IV SCH ×2 (13:19→21:40)
[2017-01-31] MEDS: POTASSIUM CHLORIDE ER 20 MEQ TAB.ER PO SCH ×2 (13:19→14:36)
--- NOTE | 2017-01-31 14:03 | P.HPIM ---
History of Present Illness This is a 66-year-old female who presents to the emergency room from [facility]. They called us stated he thought the patient might have sepsis secondary to urinary tract infection . Patient has urinary retention seconded to Percocet I believe. Patient was seen and [facility] and found to have low blood pressures and had fevers because of which patient was sent in here patient is afebrile since her hospitalization. Urine did look abnormal patient is ALLERGIC to most medications because of which patient is on levofloxacin for urinary tract infection. Patient has urinary retention. Patient had a CAT scan of the abdomen which did show urinary retention. Which again I believe is secondary to baclofen which she is on for long time and Percocet together. Patient says she will need baclofen and this can urine Percocet and starting her on ketorolac for pain. Patient had a repeat recent right hip surgery since then patient has been on Percocet.was comparing of dysuria has been going on for last 2-3 days Review of Systems REVIEW OF SYSTEMS: CONSTITUTIONAL:mentioned in HPI HEENT: No recent visual problems or hearing problems. Denied any sore throat. CARDIOVASCULAR: No chest pain, orthopnea, PND, no palpitations, no syncope. PULMONARY: No shortness of breath, no cough, no hemoptysis. GASTROINTESTINAL: No diarrhea, no nausea, no vomiting, no abdominal pain. Normoactive bowel sounds. NEUROLOGICAL: No headaches, no weakness, no numbness. HEMATOLOGICAL: Denies any bleeding or petechiae. GENITOURINARY: as mentioned in HPI MUSCULOSKELETAL/RHEUMATOLOGICAL: Denies any joint pain, swelling, or any muscle pain. ENDOCRINE: Denies any polyuria or polydipsia. The rest of the 14-point review of systems is negative. Past Medical History Past Medical History: Blood Disorder, Deep Vein Thrombosis (DVT), Fibromyalgia, Osteoarthritis (OA), Respiratory Disorder, Thyroid Disorder Additional Past Medical History / Comment(s): MULTIPLE SCLEROSIS. ADRENAL INSUFFICIENCY & PITUITARY INSUFFICIENCY. Hypotension, vasopressor syncope, FACTOR V LEIDEN. Iron deficient anemia. Hypoglycemia. Chronic nausea. DVT QUINCY LEGS, UTI'S. VARICOSE VEINS. HX: HTN RESOLVED WITH WT LOSS. Daily steroid, osteoporosis, raynauds, insomnia, chronic fatigue, Mariano Castillo. History of Any Multi-Drug Resistant Organisms: None Reported Past Surgical History: Adenoidectomy, Back Surgery, Bariatric Surgery, Section, Cholecystectomy, Hernia Repair, Joint Replacement, Orthopedic Surgery, Tonsillectomy Additional Past Surgical History / Comment(s): HAD ORIGINAL STOMACH STAPLING BY DR. WILLSON, THE REDONE BY DR. WING WITH "3/4" OF STOMACH REMOVED. ORTHO: [place] feet, quincy hand surg-mult, NECK SURGERY x2, RIGHT ROTATOR CUFF, [place] hip replacement, LEFT knee replacement. Left eye surg (TEAR DUCT). Nasal surg. C- section x2. Hernia repair with excess skin removed.back x 2, screw left foot/ removal of neuroma, screws left hand thumb, right hip replacement Past Anesthesia/Blood Transfusion Reactions: Previous Problems w/ Anesthesia Additional Past Anesthesia/Blood Transfusion Reaction / Comment(s): States "unable to urinate after surgery for approx 4 days",no problems with prior blood transfusion Past Psychological History: Anxiety, Depression Additional Psychological History / Comment(s): Patient states lately she has had anxiety/panic attacks. Smoking Status: Never smoker Past Alcohol Use History: Rare Past Drug Use History: None Reported - Past Family History Mother Family Medical History: Cancer, Pulmonary Embolus Additional Family Medical History / Comment(s): bladder cancer, kidney removed, multiple heart bypass surgeries, Father Family Medical History: Cancer, Deep Vein Thrombosis (DVT) Additional Family Medical History / Comment(s): CABG,colorectal CA Sister(s) Family Medical History: Pulmonary Embolus Medications and Allergies Home Medications Medication Instructions Recorded Confirmed Type Cholecalciferol [Vitamin D3] 5,000 unit PO BID 11/04/13 01/30/17 History Loratadine [Claritin] 10 mg PO DAILY 11/04/13 01/30/17 History Montelukast [Singulair] 10 mg PO HS 11/04/13 01/30/17 History Levothyroxine Sodium [Synthroid] 50 mcg PO DAILY 02/11/14 01/30/17 History Ondansetron HCl [Zofran] 8 mg PO Q8HR PRN 06/29/14 01/30/17 History Baclofen [Lioresal] 10 mg PO QID 09/28/15 01/30/17 History Furosemide [Lasix] 40 mg PO DAILY 09/28/15 01/30/17 History Hydrocortisone [Cortef] 5 mg PO DAILY 09/28/15 01/30/17 History Gabapentin [Neurontin] 200 mg PO QID 06/06/16 01/30/17 History Fluticasone Nasal [place] [Flonase 1 spr EA NOSTRIL DAILY 08/20/16 01/30/17 History Nasal [place]] Glucagon Emergency Kit 1 mg IM ONCE PRN 08/20/16 01/30/17 History ALPRAZolam [Xanax] 0.25 mg PO Q8HR PRN 01/30/17 01/30/17 History Acetaminophen [Tylenol] 650 mg PO Q4H 01/30/17 01/30/17 History Docusate [Colace] 100 mg PO BID 01/30/17 01/30/17 History Enoxaparin [Lovenox] 40 mg SQ DAILY 01/30/17 01/30/17 History Polyethylene Glycol 3350 [Miralax] 17 gm PO DAILY 01/30/17 01/30/17 History Senokot Extra 17.2mg 17.2 mg PO HS 01/30/17 01/30/17 History oxyCODONE-APAP 5-325MG [Percocet 2 tab PO Q4HR PRN 01/30/17 01/30/17 History 5-325 mg] Allergies Allergy/AdvReac Type Severity Reaction Status Date / Time amoxicillin trihydrate Allergy Nausea & Verified 01/30/17 19:32 [From Augmentin] Vomiting,DIARRHEA,HIVES ciprofloxacin HCl Allergy Rash/Hives, Verified 01/30/17 19:32 [From Cipro] NAUSEA/VOMITING/DIARRHEA clarithromycin [From Biaxin] Allergy Rash/Hives, Verified 01/30/17 19:32 NAUSEA/VOMI TING/DIARRH EA diflunisal [From Dolobid] Allergy Rash/Hives,upset Verified 01/30/17 19:32 stomach ergotamine tartrate Allergy Anaphylaxis Verified 01/30/17 19:32 [From Cafergot] ,SOB hydromorphone [From Dilaudid] Allergy Unknown Verified 01/30/17 19:32 metoclopramide HCl Allergy "pseudo Verified 01/30/17 19:32 [From Reglan] parkinsons" metronidazole [From Flagyl] Allergy hives,upset Verified 01/30/17 19:32 stomach,migraine sucralfate [From Carafate] Allergy Swelling Verified 01/30/17 19:32 sulfamethoxazole Allergy Rash/Hives, Verified 01/30/17 19:32 [From Bactrim] NAUSEA,MIGR AINES,diarr hea trimethoprim [From Bactrim] Allergy Rash/Hives, Verified 01/30/17 19:32 NAUSEA,MIGR AINES,diarr hea aspirin AdvReac STATES Verified 01/30/17 19:32 "STOMACH DOES NOT TOLERATE ASPIRIN" can take ecotrin Metronidazole HCl AdvReac hives,upset Verified 01/30/17 19:32 [From Flagyl] stomach,migraine potassium clavulanate AdvReac Nausea & Verified 01/30/17 19:32 [From Augmentin] Vomiting,DIARRHEA,HIVES diflusnisol Allergy Rash/Hives Uncoded 09/17/16 10:39 IV Tylenol Allergy Rash/Hives Uncoded 09/17/16 10:39 states "can take oral tylenol" oral morphine AdvReac Nausea & Uncoded 09/17/16 10:39 Vomiting & Diarrhea Physical Exam Vitals: Vital Signs Temp Pulse Pulse Pulse Resp BP BP 01/31/17 07:00 98.1 F 63 16 98/68 01/31/17 02:15 97.9 F 64 16 92/55 01/31/17 00:34 97.3 F L 69 18 99/66 01/30/17 23:44 97.9 F 68 20 96/56 01/30/17 22:32 97.7 F 67 16 110/63 01/30/17 21:00 97.7 F 67 20 90/56 01/30/17 19:57 98.4 F 70 20 93/56 01/30/17 18:37 98.4 F 71 20 93/51 Pulse Ox 01/31/17 07:00 99 01/31/17 02:15 98 01/31/17 00:34 97 01/30/17 23:44 98 01/30/17 22:32 97 01/30/17 21:00 96 01/30/17 19:57 98 01/30/17 18:37 96 Intake and Output 01/30/17 01/31/17 01/31/17 22:59 06:59 14:59 Output Total 1200 Balance -1200 Output: Urine 1200 Other: Voiding Method Indwelling Catheter Weight 48.081 kg 51.71 kg PHYSICAL EXAMINATION: GENERAL: The patient is alert and oriented x3, not in any acute distress. Well developed, well nourished. HEENT: Pupils are round and equally reacting to light. EOMI. No scleral icterus. No conjunctival pallor. Normocephalic, atraumatic. No pharyngeal erythema. No thyromegaly. CARDIOVASCULAR: S1 and S2 present. No murmurs, rubs, or gallops. PULMONARY: Chest is clear to auscultation, no wheezing or crackles. ABDOMEN: Soft, nontender, nondistended, normoactive bowel sounds. No palpable organomegaly. MUSCULOSKELETAL: No joint swelling or deformity. EXTREMITIES: No cyanosis, clubbing, or pedal edema. NEUROLOGICAL: Gross neurological examination did not reveal any new focal deficits. SKIN: No rashes. Results CBC & Chem 7: 01/31/17 08:22 01/31/17 08:22 Labs: Abnormal Lab Results - Last 24 Hours (Table) 01/30/17 01/30/17 01/30/17 Range/Units 19:54 19:54 19:54 WBC 18.3 H (3.8-10.6) k/uL RBC 3.29 L (3.80-5.40) m/uL Hgb 10.1 L (11.4-16.0) gm/dL Hct 29.9 L (34.0-46.0) % Plt Count 504 H (150-450) k/uL Neutrophils # 17.3 H (1.3-7.7) k/uL Lymphocytes # 0.6 L (1.0-4.8) k/uL Sodium 134 L (137-145) mmol/L Potassium (3.5-5.1) mmol/L Creatinine 0.50 L (0.52-1.04) mg/dL Glucose 103 H (74-99) mg/dL Calcium 8.1 L (8.4-10.2) mg/dL AST 37 H (14-36) U/L Total Creatine Kinase <20 L (30-135) U/L Total Protein 4.9 L (6.3-8.2) g/dL Albumin 2.5 L (3.5-5.0) g/dL Urine Appearance (Clear) Urine Nitrite (Negative) Ur Leukocyte Esterase (Negative) Urine WBC (0-5) /hpf Urine WBC Clumps (None) /hpf Urine Bacteria (None) /hpf Urine Mucus (None) /hpf 01/30/17 01/31/17 01/31/17 Range/Units 21:28 08:22 08:22 WBC 17.3 H (3.8-10.6) k/uL RBC 3.44 L (3.80-5.40) m/uL Hgb 10.3 L (11.4-16.0) gm/dL Hct 33.0 L (34.0-46.0) % Plt Count (150-450) k/uL Neutrophils # 15.3 H (1.3-7.7) k/uL Lymphocytes # (1.0-4.8) k/uL Sodium 133 L (137-145) mmol/L Potassium 3.3 L (3.5-5.1) mmol/L Creatinine (0.52-1.04) mg/dL Glucose (74-99) mg/dL Calcium (8.4-10.2) mg/dL AST (14-36) U/L Total Creatine Kinase (30-135) U/L Total Protein 5.4 L (6.3-8.2) g/dL Albumin 2.9 L (3.5-5.0) g/dL Urine Appearance Cloudy H (Clear) Urine Nitrite Positive H (Negative) Ur Leukocyte Esterase Large H (Negative) Urine WBC 48 H (0-5) /hpf Urine WBC Clumps Few H (None) /hpf Urine Bacteria Moderate H (None) /hpf Urine Mucus Rare H (None) /hpf Microbiology - Last 24 Hours (Table) 01/30/17 21:28 Urine Culture - Preliminary Urine,Catheterized Thrombosis Risk Factor Assmnt - Choose All That Apply Any of the Below Risk Factors Present?: Yes Each Factor Represents 1 point: History of prior major surgery (<1month), Sepsis (< 1month), Varicose veins Each Risk Factor Represents 2 Points: Age 61-74 years, Arthroscopic surgery Each Risk Factor Represents 3 Points: Positive Factor V Leiden, Family history of DVT/PE, History of DVT/PE Each Risk Factor Represents 5 Points: Elective major lower extremity arthoplasty Thrombosis Risk Factor Assessment Total Risk Factor Score: 21 Thrombosis Risk Factor Assessment Level: High Risk Assessment and Plan Plan: #1sepsis: Secondary to urinary tract infection: Patient will continued on levofloxacin. I #2 urinary retention: Patient does have history of multiple sclerosis but I believe his urinary retention is secondary to Percocet which were dyspnea. And patient is on baclofen as well. And neurology will be consulted. patient presently has Mcfadden catheter #3 hyponatremia: Hypervolemic hyponatremia expected to improve with IV fluids. Lasix will be decided patient has been using Lasix for peripheral edema. Doesn' t have any history of congestive heart failure. #4 history of multiple cirrhosis: No new weakness at this time. #5 fibromyalgia. #6 DVT presently not on not on anticoagulation dose but is on DVT prophylactic dose of Lovenox will have to discuss with the patient regarding this. #7 hypothyroidism continue with levothyroxine.
[2017-01-31] MEDS: KETOROLAC 30 MG/ML 1 ML VIAL IVP PRN ×2 (14:46→20:43)
[2017-01-31] MEDS: VANCOMYCIN 1,000 MG in SODIUM CHLORIDE 0.9% 250 ML IVPB SCH (17:08)
[2017-01-31] MEDS: ALPRAZolam 0.25 MG TAB PO PRN (17:17)
--- NOTE | 2017-01-31 17:32 | P.GSCN ---
History of Present Illness Consult date: 01/31/17 Reason for Consult: Urinary retention/UTI History of present illness: The patient was transferred from the [facility] emergency room yesterday for evaluation of hypotension and a fever which was felt to be related to urosepsis. The patient says that her problem began on 01/15 when she dislocated her right hip. She says that she underwent manipulation of the hip but did not require an open revision. She was unable to void following the surgery and was discharged to a rehab unit with a catheter in place. She believes the catheter was removed 1 week ago. She has been able to void but says that her post void residuals determined by bladder scan were progressively getting larger. She apparently had a fever and hypotension yesterday am and was evaluated in the [place] ER and was in and out cathed for a urine specimen which suggested a UTI. The patient does not believe that her bladder was completely drained at that time. She was transferred to the [facility] emergency room and a computed tomography scan showed evidence of bladder distention. A catheter was inserted and drained 1200 mL. Patient had some lower abdominal discomfort which resolved following bladder drainage. The patient was started on Levaquin and vancomycin and has remained afebrile since admission although her current temperature is 99.3. White blood count yesterday was 18,300. White blood count today is 17,300. The patient has a history of urinary retention which is occurred several times in the past. She was last seen by Dr. Castillo in 2013 after she developed urinary retention following neck surgery. Prior to 01/15 she says she was voiding every 1-2 hours during the day and at least 4 or 5 times at night. She complained of urgency with occasional urge incontinence. She was also uncertain that she was voiding completely. Her bowels have been moving normally. Review of Systems Significant mainly in regard to HPI. Past Medical History Past Medical History: Blood Disorder, Deep Vein Thrombosis (DVT), Fibromyalgia, Osteoarthritis (OA), Respiratory Disorder, Thyroid Disorder Additional Past Medical History / Comment(s): MULTIPLE SCLEROSIS. ADRENAL INSUFFICIENCY & PITUITARY INSUFFICIENCY. Hypotension, vasopressor syncope, FACTOR V LEIDEN. Iron deficient anemia. Hypoglycemia. Chronic nausea. DVT QUINCY LEGS, UTI'S. VARICOSE VEINS. HX: HTN RESOLVED WITH WT LOSS. Daily steroid, osteoporosis, raynauds, insomnia, chronic fatigue, Mariano Castillo. History of Any Multi-Drug Resistant Organisms: None Reported Past Surgical History: Adenoidectomy, Back Surgery, Bariatric Surgery, Section, Cholecystectomy, Hernia Repair, Joint Replacement, Orthopedic Surgery, Tonsillectomy Additional Past Surgical History / Comment(s): HAD ORIGINAL STOMACH STAPLING BY DR. WILLSON, THE REDONE BY DR. WING WITH "3/4" OF STOMACH REMOVED. ORTHO: [place] feet, quincy hand surg-mult, NECK SURGERY x2, RIGHT ROTATOR CUFF, [place] hip replacement, LEFT knee replacement. Left eye surg (TEAR DUCT). Nasal surg. C- section x2. Hernia repair with excess skin removed.back x 2, screw left foot/ removal of neuroma, screws left hand thumb, right hip replacement Past Anesthesia/Blood Transfusion Reactions: Previous Problems w/ Anesthesia Additional Past Anesthesia/Blood Transfusion Reaction / Comm: States "unable to urinate after surgery for approx 4 days",no problems with prior blood transfusion Past Psychological History: Anxiety, Depression Additional Psychological History / Comment(s): Patient states lately she has had anxiety/panic attacks. Smoking Status: Never smoker Past Alcohol Use History: Rare Past Drug Use History: None Reported - Past Family History Mother Family Medical History: Cancer, Pulmonary Embolus Additional Family Medical History / Comment(s): bladder cancer, kidney removed, multiple heart bypass surgeries, Father Family Medical History: Cancer, Deep Vein Thrombosis (DVT) Additional Family Medical History / Comment(s): CABG,colorectal CA Sister(s) Family Medical History: Pulmonary Embolus Medications and Allergies Home Medications Medication Instructions Recorded Confirmed Type Cholecalciferol [Vitamin D3] 5,000 unit PO BID 11/04/13 01/30/17 History Loratadine [Claritin] 10 mg PO DAILY 11/04/13 01/30/17 History Montelukast [Singulair] 10 mg PO HS 11/04/13 01/30/17 History Levothyroxine Sodium [Synthroid] 50 mcg PO DAILY 02/11/14 01/30/17 History Ondansetron HCl [Zofran] 8 mg PO Q8HR PRN 06/29/14 01/30/17 History Baclofen [Lioresal] 10 mg PO QID 09/28/15 01/30/17 History Furosemide [Lasix] 40 mg PO DAILY 09/28/15 01/30/17 History Hydrocortisone [Cortef] 5 mg PO DAILY 09/28/15 01/30/17 History Gabapentin [Neurontin] 200 mg PO QID 06/06/16 01/30/17 History Fluticasone Nasal [place] [Flonase 1 spr EA NOSTRIL DAILY 08/20/16 01/30/17 History Nasal [place]] Glucagon Emergency Kit 1 mg IM ONCE PRN 08/20/16 01/30/17 History ALPRAZolam [Xanax] 0.25 mg PO Q8HR PRN 01/30/17 01/30/17 History Acetaminophen [Tylenol] 650 mg PO Q4H 01/30/17 01/30/17 History Docusate [Colace] 100 mg PO BID 01/30/17 01/30/17 History Enoxaparin [Lovenox] 40 mg SQ DAILY 01/30/17 01/30/17 History Polyethylene Glycol 3350 [Miralax] 17 gm PO DAILY 01/30/17 01/30/17 History Senokot Extra 17.2mg 17.2 mg PO HS 01/30/17 01/30/17 History oxyCODONE-APAP 5-325MG [Percocet 2 tab PO Q4HR PRN 01/30/17 01/30/17 History 5-325 mg] Allergies Allergy/AdvReac Type Severity Reaction Status Date / Time amoxicillin trihydrate Allergy Nausea & Verified 01/30/17 19:32 [From Augmentin] Vomiting,DIARRHEA,HIVES ciprofloxacin HCl Allergy Rash/Hives, Verified 01/30/17 19:32 [From Cipro] NAUSEA/VOMITING/DIARRHEA clarithromycin [From Biaxin] Allergy Rash/Hives, Verified 01/30/17 19:32 NAUSEA/VOMI TING/DIARRH EA diflunisal [From Dolobid] Allergy Rash/Hives,upset Verified 01/30/17 19:32 stomach ergotamine tartrate Allergy Anaphylaxis Verified 01/30/17 19:32 [From Cafergot] ,SOB hydromorphone [From Dilaudid] Allergy Unknown Verified 01/30/17 19:32 metoclopramide HCl Allergy "pseudo Verified 01/30/17 19:32 [From Reglan] parkinsons" metronidazole [From Flagyl] Allergy hives,upset Verified 01/30/17 19:32 stomach,migraine sucralfate [From Carafate] Allergy Swelling Verified 01/30/17 19:32 sulfamethoxazole Allergy Rash/Hives, Verified 01/30/17 19:32 [From Bactrim] NAUSEA,MIGR AINES,diarr hea trimethoprim [From Bactrim] Allergy Rash/Hives, Verified 01/30/17 19:32 NAUSEA,MIGR AINES,diarr hea aspirin AdvReac STATES Verified 01/30/17 19:32 "STOMACH DOES NOT TOLERATE ASPIRIN" can take ecotrin Metronidazole HCl AdvReac hives,upset Verified 01/30/17 19:32 [From Flagyl] stomach,migraine potassium clavulanate AdvReac Nausea & Verified 01/30/17 19:32 [From Augmentin] Vomiting,DIARRHEA,HIVES diflusnisol Allergy Rash/Hives Uncoded 09/17/16 10:39 IV Tylenol Allergy Rash/Hives Uncoded 09/17/16 10:39 states "can take oral tylenol" oral morphine AdvReac Nausea & Uncoded 09/17/16 10:39 Vomiting & Diarrhea Surgical - Exam Vital Signs Temp Pulse Resp BP Pulse Ox 98.4 F 71 20 93/51 96 01/30/17 18:37 01/30/17 18:37 01/30/17 18:37 01/30/17 18:37 01/30/17 18:37 - General well developed, well nourished, no pain - Respiratory normal respiratory effort - Abdomen Abdomen: soft Hernia: none Results - Labs 01/31/17 08:22 01/31/17 08:22 Abnormal Lab Results - Last 24 Hours (Table) 01/30/17 01/30/17 01/30/17 Range/Units 19:54 19:54 19:54 WBC 18.3 H (3.8-10.6) k/uL RBC 3.29 L (3.80-5.40) m/uL Hgb 10.1 L (11.4-16.0) gm/dL Hct 29.9 L (34.0-46.0) % Plt Count 504 H (150-450) k/uL Neutrophils # 17.3 H (1.3-7.7) k/uL Lymphocytes # 0.6 L (1.0-4.8) k/uL Sodium 134 L (137-145) mmol/L Potassium (3.5-5.1) mmol/L Creatinine 0.50 L (0.52-1.04) mg/dL Glucose 103 H (74-99) mg/dL Calcium 8.1 L (8.4-10.2) mg/dL AST 37 H (14-36) U/L Total Creatine Kinase <20 L (30-135) U/L Total Protein 4.9 L (6.3-8.2) g/dL Albumin 2.5 L (3.5-5.0) g/dL Urine Appearance (Clear) Urine Nitrite (Negative) Ur Leukocyte Esterase (Negative) Urine WBC (0-5) /hpf Urine WBC Clumps (None) /hpf Urine Bacteria (None) /hpf Urine Mucus (None) /hpf 01/30/17 01/31/17 01/31/17 Range/Units 21:28 08:22 08:22 WBC 17.3 H (3.8-10.6) k/uL RBC 3.44 L (3.80-5.40) m/uL Hgb 10.3 L (11.4-16.0) gm/dL Hct 33.0 L (34.0-46.0) % Plt Count (150-450) k/uL Neutrophils # 15.3 H (1.3-7.7) k/uL Lymphocytes # (1.0-4.8) k/uL Sodium 133 L (137-145) mmol/L Potassium 3.3 L (3.5-5.1) mmol/L Creatinine (0.52-1.04) mg/dL Glucose (74-99) mg/dL Calcium (8.4-10.2) mg/dL AST (14-36) U/L Total Creatine Kinase (30-135) U/L Total Protein 5.4 L (6.3-8.2) g/dL Albumin 2.9 L (3.5-5.0) g/dL Urine Appearance Cloudy H (Clear) Urine Nitrite Positive H (Negative) Ur Leukocyte Esterase Large H (Negative) Urine WBC 48 H (0-5) /hpf Urine WBC Clumps Few H (None) /hpf Urine Bacteria Moderate H (None) /hpf Urine Mucus Rare H (None) /hpf Microbiology - Last 24 Hours (Table) 01/30/17 21:28 Urine Culture - Preliminary Urine,Catheterized Diabetes panel 01/30/17 01/31/17 Range/Units 19:54 08:22 Sodium 134 L 133 L (137-145) mmol/L Potassium 3.8 3.3 L (3.5-5.1) mmol/L Chloride 102 99 (98-107) mmol/L Carbon Dioxide 25 26 (22-30) mmol/L BUN 15 12 (7-17) mg/dL Creatinine 0.50 L 0.60 (0.52-1.04) mg/dL Glucose 103 H 82 (74-99) mg/dL Calcium 8.1 L 8.6 (8.4-10.2) mg/dL AST 37 H 26 (14-36) U/L ALT 33 25 (9-52) U/L Alkaline Phosphatase 73 74 (38-126) U/L Total Protein 4.9 L 5.4 L (6.3-8.2) g/dL Albumin 2.5 L 2.9 L (3.5-5.0) g/dL Calcium panel 01/30/17 01/31/17 Range/Units 19:54 08:22 Calcium 8.1 L 8.6 (8.4-10.2) mg/dL Albumin 2.5 L 2.9 L (3.5-5.0) g/dL Pituitary panel 01/30/17 01/31/17 Range/Units 19:54 08:22 Sodium 134 L 133 L (137-145) mmol/L Potassium 3.8 3.3 L (3.5-5.1) mmol/L Chloride 102 99 (98-107) mmol/L Carbon Dioxide 25 26 (22-30) mmol/L BUN 15 12 (7-17) mg/dL Creatinine 0.50 L 0.60 (0.52-1.04) mg/dL Glucose 103 H 82 (74-99) mg/dL Calcium 8.1 L 8.6 (8.4-10.2) mg/dL Adrenal panel 01/30/17 01/31/17 Range/Units 19:54 08:22 Sodium 134 L 133 L (137-145) mmol/L Potassium 3.8 3.3 L (3.5-5.1) mmol/L Chloride 102 99 (98-107) mmol/L Carbon Dioxide 25 26 (22-30) mmol/L BUN 15 12 (7-17) mg/dL Creatinine 0.50 L 0.60 (0.52-1.04) mg/dL Glucose 103 H 82 (74-99) mg/dL Calcium 8.1 L 8.6 (8.4-10.2) mg/dL Total Bilirubin 0.5 0.4 (0.2-1.3) mg/dL AST 37 H 26 (14-36) U/L ALT 33 25 (9-52) U/L Alkaline Phosphatase 73 74 (38-126) U/L Total Protein 4.9 L 5.4 L (6.3-8.2) g/dL Albumin 2.5 L 2.9 L (3.5-5.0) g/dL Assessment and Plan (1) Urinary retention with incomplete bladder emptying Narrative/Plan: The patient had urinary retention when she presented to the emergency room and had 1200 mL in her bladder. According to her history she had been having problems completely emptying her bladder ever since she dislocated her right hip on 01/15. She may have had some element of incomplete bladder emptying even prior to that based on her urinary frequency and urge incontinence. She has a long history of multiple sclerosis and it is possible that she has chronic incomplete bladder emptying on this basis. It's unclear at the present time whether the patient had a urinary tract infection at the time of admission however her urinalysis was positive for nitrite. Hopefully her urine culture will be available within the next 24-48 hours. I'm in agreement with the choice of antibiotics pending results of the urine culture. The patient had bladder overdistention which may make treatment of her incomplete bladder emptying more difficult in the short-term. Ideally the patient would be treated with intermittent catheterization but it's unclear whether she has enough dexterity in her hands to perform this. She says that she has difficulty at times in holding a pencil. For the time being her Mcfadden catheter should be left in place. She says she has an appointment to see a urologist in [place] next week but if she does well may be possible to give her a trial of self-catheterization in 2 or 3 days. Status: Acute
[2017-01-31 17:35] LABS: Glucose,Whole Blood 90 mg/dL (75-99)
[2017-01-31] MEDS: SENNOSIDES 8.6 MG TAB PO SCH (20:37)
[2017-01-31] MEDS: MONTELUKAST 10 MG TAB PO SCH (20:38)
[2017-01-31 20:41] LABS: Glucose,Whole Blood 85 mg/dL (75-99)
[2017-02-01] MEDS: KETOROLAC 30 MG/ML 1 ML VIAL IVP PRN ×4 (04:26→21:49)
[2017-02-01] MEDS: VANCOMYCIN 1,000 MG in SODIUM CHLORIDE 0.9% 250 ML IVPB SCH (05:01)
[2017-02-01] MEDS ORDERED: LEVOTHYROXINE 50 MCG TAB PO SCH (06:30)
[2017-02-01 07:51] LABS: Glucose,Whole Blood 90 mg/dL (75-99)
[2017-02-01 08:08] LABS: CH 30.9; CHCM 32.3; HDW 2.73; HGB 10.3 gm/dL (11.4-16.0); MCH 29.9 pg (25.0-35.0); MCHC 31.1 g/dL (31.0-37.0); MCV 96.2 fL (80.0-100.0); Mean Platelet Volume 6.8; RBC 3.43 m/uL (3.80-5.40); RDW 14.4 % (11.5-15.5); WBC 8.7 k/uL (3.8-10.6)
[2017-02-01 08:30] LABS: Anion Gap 6 mmol/L; Blood Urea Nitrogen 9 mg/dL (7-17); Calcium 8.7 mg/dL (8.4-10.2); Carbon Dioxide 27 mmol/L (22-30); Chloride 103 mmol/L (98-107); Glucose 76 mg/dL (74-99); Non-African American GFR(MDRD) >60 (>60 ml/min/1.73 sqM); Potassium 4.5 mmol/L (3.5-5.1); Sodium 136 mmol/L (137-145)
[2017-02-01] MEDS: CHOLECALCIFEROL 1,000 UNIT TAB PO SCH ×2 (08:40→20:24)
[2017-02-01] MEDS: ENOXAPARIN 40 MG/0.4 ML SYRINGE SQ SCH (08:40)
[2017-02-01] MEDS: MAGNESIUM OXIDE 400 MG TAB PO SCH (08:41)
[2017-02-01] MEDS: BACLOFEN 10 MG TAB PO SCH ×3 (08:41→20:24)
[2017-02-01] MEDS: DOCUSATE 100 MG CAP PO SCH ×2 (08:41→20:23)
[2017-02-01] MEDS: HYDROCORTISONE 10 MG TAB PO SCH (08:42)
[2017-02-01] MEDS: ALPRAZolam 0.25 MG TAB PO PRN ×2 (08:45→17:02)
[2017-02-01] MEDS: FLUTICASONE 50MCG/SPRAY NASAL 16GM EA NOSTRIL SCH (08:45)
[2017-02-01] MEDS: GABAPENTIN 100 MG CAP PO SCH ×3 (09:00→20:23)
[2017-02-01] MEDS: ACETAMINOPHEN TAB 325 MG TAB PO PRN (12:25)
[2017-02-01 12:44] LABS: Glucose,Whole Blood 104 mg/dL (75-99)
--- NOTE | 2017-02-01 14:13 | P.PN ---
Subjective Patient is admitted for urinary tract infection. Patient says her pain is not well controlled because of which I'll increase the frequency of ketorolac. Patient will not be started on Percocet because of opiate-induced urinary retention. Patient was evaluated by urology. Patient is also complaining of tingling and numbness in the and the right side of the body because of her history of multiple cirrhosis neurology will be consulted. Patient denied any dysuria, fevers,, nausea, lightheadedness patient is comparing of right hip pain. Objective - Vital Signs Vital signs: Vital Signs Temp 97.8 F 02/01/17 07:00 Pulse 71 02/01/17 07:00 Resp 16 02/01/17 07:00 BP 133/83 02/01/17 07:00 Pulse Ox 94 L 02/01/17 08:44 Intake & Output 01/31/17 02/01/17 02/01/17 18:59 06:59 18:59 Intake Total 1700 Output Total 2500 3500 1500 Balance -2500 -1800 -1500 Intake: Oral 1700 Output: Urine 2500 3500 1500 Other: Voiding Method Indwelling Catheter Indwelling Catheter # Bowel Movements 1 - Exam PHYSICAL EXAMINATION: GENERAL: The patient is alert and oriented x3, not in any acute distress. Well developed, well nourished. HEENT: Pupils are round and equally reacting to light. EOMI. No scleral icterus. No conjunctival pallor. Normocephalic, atraumatic. No pharyngeal erythema. No thyromegaly. CARDIOVASCULAR: S1 and S2 present. No murmurs, rubs, or gallops. PULMONARY: Chest is clear to auscultation, no wheezing or crackles. ABDOMEN: Soft, nontender, nondistended, normoactive bowel sounds. No palpable organomegaly. MUSCULOSKELETAL: No joint swelling or deformity. EXTREMITIES: No cyanosis, clubbing, or pedal edema. NEUROLOGICAL: Gross neurological examination did not reveal any new focal deficits. SKIN: No rashes. - Labs CBC & Chem 7: 02/01/17 07:26 02/01/17 07:26 Labs: Abnormal Lab Results - Last 24 Hours (Table) 02/01/17 02/01/17 02/01/17 Range/Units 07:26 07:26 12:28 RBC 3.43 L (3.80-5.40) m/uL Hgb 10.3 L (11.4-16.0) gm/dL Hct 33.0 L (34.0-46.0) % Sodium 136 L (137-145) mmol/L POC Glucose (mg/dL) 104 H (75-99) mg/dL Microbiology - Last 24 Hours (Table) 01/30/17 21:28 Urine Culture - Preliminary Urine,Catheterized Gram Neg Bacilli 01/30/17 19:54 Blood Culture - Preliminary Blood No Growth after 24 hours Assessment and Plan Plan: #1sepsis: Secondary to urinary tract infection: Patient will continued on levofloxacin. Vancomycin was started in ER which was reviewed and patient urine cultures is having gram-negative bacilli #2 urinary retention: Patient does have history of multiple sclerosis but I believe his urinary retention is secondary to Percocet which were dyspnea. And patient is on baclofen as well. And neurology will be consulted. patient presently has Mcfadden catheter #3 hyponatremia: Hypervolemic hyponatremia expected to improve with IV fluids. Lasix will be decided patient has been using Lasix for peripheral edema. Doesn' t have any history of congestive heart failure. #4 possible sclerosis: Patient is comparing of new thickening and numbness in the right hand and right side of the face, neurology will be consulted. #5 fibromyalgia. #6 DVT presently not on not on anticoagulation dose but is on DVT prophylactic dose of Lovenox will have to discuss with the patient regarding this. #7 hypothyroidism continue with levothyroxine.
[2017-02-01] MEDS: SODIUM CHLORIDE 0.9% 1,000 ML IV SCH ×2 (14:18→21:02)
[2017-02-01] MEDS: LEVOFLOXACIN 500 MG TAB PO SCH (14:39)
[2017-02-01 17:26] LABS: Glucose,Whole Blood 63 mg/dL (75-99)
[2017-02-01 17:31] LABS: Glucose,Whole Blood 105 mg/dL (75-99)
[2017-02-01] MEDS: MONTELUKAST 10 MG TAB PO SCH (20:24)
[2017-02-01] MEDS: SENNOSIDES 8.6 MG TAB PO SCH (20:34)
[2017-02-01 20:53] LABS: Glucose,Whole Blood 82 mg/dL (75-99)
[2017-02-02] MEDS: LEVOTHYROXINE 50 MCG TAB PO SCH (01:52)
[2017-02-02] MEDS: KETOROLAC 30 MG/ML 1 ML VIAL IVP PRN ×3 (01:56→15:14)
[2017-02-02] MEDS: GABAPENTIN 100 MG CAP PO SCH ×5 (02:49→20:24)
[2017-02-02] MEDS: BACLOFEN 10 MG TAB PO SCH ×4 (02:49→20:25)
[2017-02-02 07:28] LABS: Glucose,Whole Blood 103 mg/dL (75-99)
[2017-02-02] MEDS: DOCUSATE 100 MG CAP PO SCH ×2 (08:14→21:13)
[2017-02-02] MEDS: FLUTICASONE 50MCG/SPRAY NASAL 16GM EA NOSTRIL SCH (08:15)
[2017-02-02] MEDS: MAGNESIUM OXIDE 400 MG TAB PO SCH (08:15)
[2017-02-02] MEDS: ENOXAPARIN 40 MG/0.4 ML SYRINGE SQ SCH (08:15)
[2017-02-02] MEDS: ACETAMINOPHEN TAB 325 MG TAB PO PRN (08:17)
[2017-02-02] MEDS: ALPRAZolam 0.25 MG TAB PO PRN ×2 (08:17→20:25)
[2017-02-02] MEDS: HYDROCORTISONE 10 MG TAB PO SCH (08:18)
[2017-02-02 08:41] LABS: CH 30.3; CHCM 32.9; HCT 35.4 % (34.0-46.0); HDW 2.78; HGB 11.3 gm/dL (11.4-16.0); MCH 29.7 pg (25.0-35.0); MCV 92.6 fL (80.0-100.0); Mean Platelet Volume 6.4; RBC 3.82 m/uL (3.80-5.40); RDW 13.9 % (11.5-15.5); WBC 6.3 k/uL (3.8-10.6)
[2017-02-02 08:58] LABS: Anion Gap 9 mmol/L; Blood Urea Nitrogen 9 mg/dL (7-17); Calcium 9.1 mg/dL (8.4-10.2); Carbon Dioxide 26 mmol/L (22-30); Chloride 93 mmol/L (98-107); Glucose 106 mg/dL (74-99); Non-African American GFR(MDRD) >60 (>60 ml/min/1.73 sqM); Potassium 4.2 mmol/L (3.5-5.1); Sodium 128 mmol/L (137-145)
[2017-02-02] MEDS: CHOLECALCIFEROL 1,000 UNIT TAB PO SCH ×2 (09:00→21:13)
[2017-02-02] MEDS: SODIUM CHLORIDE 0.9% 1,000 ML IV SCH ×2 (11:28→20:32)
[2017-02-02 12:10] LABS: Glucose,Whole Blood 95 mg/dL (75-99)
[2017-02-02] MEDS: LEVOFLOXACIN 500 MG TAB PO SCH (15:16)
[2017-02-02 17:22] LABS: Glucose,Whole Blood 83 mg/dL (75-99)
[2017-02-02] MEDS ORDERED: FLUCONAZOLE 150 MG TAB PO STA (20:57)
[2017-02-02 20:59] LABS: Glucose,Whole Blood 91 mg/dL (75-99)
[2017-02-02] MEDS: MONTELUKAST 10 MG TAB PO SCH (21:13)
[2017-02-02] MEDS: SENNOSIDES 8.6 MG TAB PO SCH (21:13)
[2017-02-02] MEDS: ONDANSETRON 4 MG TAB PO PRN (21:14)
[2017-02-03] MEDS: LEVOTHYROXINE 50 MCG TAB PO SCH (01:05)
[2017-02-03] MEDS ORDERED: GABAPENTIN 100 MG CAP PO ONE (02:00)
[2017-02-03] MEDS: KETOROLAC 30 MG/ML 1 ML VIAL IVP PRN ×5 (02:13→22:56)
[2017-02-03] MEDS: BACLOFEN 10 MG TAB PO SCH ×4 (02:14→20:48)
[2017-02-03] MEDS: SODIUM CHLORIDE 0.9% 1,000 ML IV SCH ×2 (05:38→15:54)
[2017-02-03 07:11] LABS: Glucose,Whole Blood 99 mg/dL (75-99)
[2017-02-03] MEDS: CHOLECALCIFEROL 1,000 UNIT TAB PO SCH ×2 (08:07→20:48)
[2017-02-03] MEDS: GABAPENTIN 100 MG CAP PO SCH ×3 (08:07→20:48)
[2017-02-03] MEDS: DOCUSATE 100 MG CAP PO SCH ×2 (08:07→20:49)
[2017-02-03] MEDS: MAGNESIUM OXIDE 400 MG TAB PO SCH (08:08)
[2017-02-03] MEDS: HYDROCORTISONE 10 MG TAB PO SCH (08:08)
[2017-02-03] MEDS: ENOXAPARIN 40 MG/0.4 ML SYRINGE SQ SCH (08:08)
[2017-02-03] MEDS: FLUTICASONE 50MCG/SPRAY NASAL 16GM EA NOSTRIL SCH (08:08)
[2017-02-03] MEDS: ACETAMINOPHEN TAB 325 MG TAB PO PRN ×2 (08:12→16:29)
[2017-02-03] MEDS: ALPRAZolam 0.25 MG TAB PO PRN (08:12)
[2017-02-03 09:03] LABS: Anion Gap 9 mmol/L; Blood Urea Nitrogen 10 mg/dL (7-17); Calcium 8.9 mg/dL (8.4-10.2); Carbon Dioxide 26 mmol/L (22-30); Chloride 93 mmol/L (98-107); Glucose 99 mg/dL (74-99); Non-African American GFR(MDRD) >60 (>60 ml/min/1.73 sqM); Sodium 128 mmol/L (137-145)
[2017-02-03 12:33] LABS: Glucose,Whole Blood 86 mg/dL (75-99)
[2017-02-03] MEDS: LEVOFLOXACIN 500 MG TAB PO SCH (13:16)
[2017-02-03] MEDS: ONDANSETRON 4 MG TAB PO PRN ×2 (13:20→22:10)
[2017-02-03 15:36] VITALS: RESP 18
[2017-02-03 17:24] LABS: Glucose,Whole Blood 84 mg/dL (75-99)
--- NOTE | 2017-02-03 20:45 | P.CNNES ---
History of Present Illness Consult date: 02/03/17 History of Present Illness: Patient 66-year-old right-handed white female who was transferred from [facility] to [facility] with urosepsis on January 30. Neurology is requested to see the patient today because of history of MS. Patient has a history of MS diagnosed in 2014. He has had numbness and tingling of the hands and feet. The numbness began in 2014 and her arms began this year. He states the diagnosis of MS was made by MRI and she has never had a spinal tap. Review of Systems Constitutional: Denies chills, Denies fever Eyes: denies blurred vision, denies pain Ears, nose, mouth and throat: Denies headache, Denies sore throat Cardiovascular: Denies chest pain, Denies shortness of breath Respiratory: Denies cough Gastrointestinal: Denies abdominal pain, Denies diarrhea, Denies nausea, Denies vomiting Genitourinary: Denies dysuria, Denies hematuria Musculoskeletal: Denies myalgias Integumentary: Reports as per HPI Neurological: Denies numbness, Denies weakness Endocrine: Denies fatigue, Denies weight change Past Medical History Past Medical History: Blood Disorder, Deep Vein Thrombosis (DVT), Fibromyalgia, Osteoarthritis (OA), Respiratory Disorder, Thyroid Disorder Additional Past Medical History / Comment(s): MULTIPLE SCLEROSIS. ADRENAL INSUFFICIENCY & PITUITARY INSUFFICIENCY. Hypotension, vasopressor syncope, FACTOR V LEIDEN. Iron deficient anemia. Hypoglycemia. Chronic nausea. DVT QUINCY LEGS, UTI'S. VARICOSE VEINS. HX: HTN RESOLVED WITH WT LOSS. Daily steroid, osteoporosis, raynauds, insomnia, chronic fatigue, Mariano Castillo. History of Any Multi-Drug Resistant Organisms: None Reported Past Surgical History: Adenoidectomy, Back Surgery, Bariatric Surgery, Section, Cholecystectomy, Hernia Repair, Joint Replacement, Orthopedic Surgery, Tonsillectomy Additional Past Surgical History / Comment(s): HAD ORIGINAL STOMACH STAPLING BY DR. WILLSON, THE REDONE BY DR. WING WITH "3/4" OF STOMACH REMOVED. ORTHO: Quincy feet, quinyc hand surg-mult, NECK SURGERY x2, RIGHT ROTATOR CUFF, Quincy hip replacement, LEFT knee replacement. Left eye surg (TEAR DUCT). Nasal surg. C- section x2. Hernia repair with excess skin removed.back x 2, screw left foot/ removal of neuroma, screws left hand thumb, right hip replacement Past Anesthesia/Blood Transfusion Reactions: Previous Problems w/ Anesthesia Additional Past Anesthesia/Blood Transfusion Reaction / Comment(s): States "unable to urinate after surgery for approx 4 days",no problems with prior blood transfusion Past Psychological History: Anxiety, Depression Additional Psychological History / Comment(s): Patient states lately she has had anxiety/panic attacks. Smoking Status: Never smoker Past Alcohol Use History: Rare Past Drug Use History: None Reported - Past Family History Mother Family Medical History: Cancer, Pulmonary Embolus Additional Family Medical History / Comment(s): bladder cancer, kidney removed, multiple heart bypass surgeries, Father Family Medical History: Cancer, Deep Vein Thrombosis (DVT) Additional Family Medical History / Comment(s): CABG,colorectal CA Sister(s) Family Medical History: Pulmonary Embolus Medications and Allergies Home Medications Medication Instructions Recorded Confirmed Type Cholecalciferol [Vitamin D3] 5,000 unit PO BID 11/04/13 01/30/17 History Loratadine [Claritin] 10 mg PO DAILY 11/04/13 01/30/17 History Montelukast [Singulair] 10 mg PO HS 11/04/13 01/30/17 History Levothyroxine Sodium [Synthroid] 50 mcg PO DAILY 02/11/14 01/30/17 History Ondansetron HCl [Zofran] 8 mg PO Q8HR PRN 06/29/14 01/30/17 History Baclofen [Lioresal] 10 mg PO QID 09/28/15 01/30/17 History Furosemide [Lasix] 40 mg PO DAILY 09/28/15 01/30/17 History Hydrocortisone [Cortef] 5 mg PO DAILY 09/28/15 01/30/17 History Gabapentin [Neurontin] 200 mg PO QID 06/06/16 01/30/17 History Fluticasone Nasal Napoleon [Flonase 1 spr EA NOSTRIL DAILY 08/20/16 01/30/17 History Nasal Napoleon] Glucagon Emergency Kit 1 mg IM ONCE PRN 08/20/16 01/30/17 History ALPRAZolam [Xanax] 0.25 mg PO Q8HR PRN 01/30/17 01/30/17 History Acetaminophen [Tylenol] 650 mg PO Q4H 01/30/17 01/30/17 History Docusate [Colace] 100 mg PO BID 01/30/17 01/30/17 History Enoxaparin [Lovenox] 40 mg SQ DAILY 01/30/17 01/30/17 History Polyethylene Glycol 3350 [Miralax] 17 gm PO DAILY 01/30/17 01/30/17 History Senokot Extra 17.2mg 17.2 mg PO HS 01/30/17 01/30/17 History oxyCODONE-APAP 5-325MG [Percocet 2 tab PO Q4HR PRN 01/30/17 01/30/17 History 5-325 mg] Allergies Allergy/AdvReac Type Severity Reaction Status Date / Time amoxicillin trihydrate Allergy Nausea & Verified 01/30/17 19:32 [From Augmentin] Vomiting,DIARRHEA,HIVES ciprofloxacin HCl Allergy Rash/Hives, Verified 01/30/17 19:32 [From Cipro] NAUSEA/VOMITING/DIARRHEA clarithromycin [From Biaxin] Allergy Rash/Hives, Verified 01/30/17 19:32 NAUSEA/VOMI TING/DIARRH EA diflunisal [From Dolobid] Allergy Rash/Hives,upset Verified 01/30/17 19:32 stomach ergotamine tartrate Allergy Anaphylaxis Verified 01/30/17 19:32 [From Cafergot] ,SOB hydromorphone [From Dilaudid] Allergy Unknown Verified 01/30/17 19:32 metoclopramide HCl Allergy "pseudo Verified 01/30/17 19:32 [From Reglan] parkinsons" metronidazole [From Flagyl] Allergy hives,upset Verified 01/30/17 19:32 stomach,migraine sucralfate [From Carafate] Allergy Swelling Verified 01/30/17 19:32 sulfamethoxazole Allergy Rash/Hives, Verified 01/30/17 19:32 [From Bactrim] NAUSEA,MIGR AINES,diarr hea trimethoprim [From Bactrim] Allergy Rash/Hives, Verified 01/30/17 19:32 NAUSEA,MIGR AINES,diarr hea aspirin AdvReac STATES Verified 01/30/17 19:32 "STOMACH DOES NOT TOLERATE ASPIRIN" can take ecotrin Metronidazole HCl AdvReac hives,upset Verified 01/30/17 19:32 [From Flagyl] stomach,migraine potassium clavulanate AdvReac Nausea & Verified 01/30/17 19:32 [From Augmentin] Vomiting,DIARRHEA,HIVES diflusnisol Allergy Rash/Hives Uncoded 09/17/16 10:39 IV Tylenol Allergy Rash/Hives Uncoded 09/17/16 10:39 states "can take oral tylenol" oral morphine AdvReac Nausea & Uncoded 09/17/16 10:39 Vomiting & Diarrhea Physical Examination - Vital Signs Vital Signs: Vital Signs Temp Pulse Resp BP Pulse Ox 02/03/17 15:00 97.6 F 72 18 117/74 99 02/03/17 07:00 98.1 F 66 16 138/85 100 02/02/17 23:00 97.6 F 60 18 118/74 99 Intake and Output 02/03/17 02/03/17 02/03/17 06:59 14:59 22:59 Intake Total 750 200 Output Total 2000 1300 Balance -1250 -1100 Intake: Oral 750 200 Output: Urine 1999 1300 Stool 0 Other: Voiding Method Indwelling Catheter Indwelling Catheter - Constitutional General appearance: average body habitus - EENT EENT: ATNC, mucous membranes dry, hearing intact, vision intact - Respiratory Respiratory: lungs clear - Cardiovascular Cardiovascular: regular rate, normal S1, normal S2 - Integumentary Integumentary: normal - Neurologic Mental status she was awake alert and oriented there was no a aphasia or dysarthria Speech examination: intact, other Sensorimotor examination: other (glove and stocking distribution sensory loss and right leg numbness) Detailed motor examination: grossly full strength in all extremities - Psychiatric Psychiatric: mood/affect appropriate Results - Laboratory Findings CBC and BMP: 02/02/17 07:54 02/03/17 08:28 Abnormal Lab Findings: Abnormal Labs 01/30/17 01/30/17 01/30/17 19:54 19:54 19:54 WBC 18.3 H RBC 3.29 L Hgb 10.1 L Hct 29.9 L Plt Count 504 H Neutrophils # 17.3 H Lymphocytes # 0.6 L Sodium 134 L Potassium Chloride Creatinine 0.50 L Glucose 103 H POC Glucose (mg/dL) Osmolality Calcium 8.1 L AST 37 H Total Creatine Kinase <20 L Total Protein 4.9 L Albumin 2.5 L Urine Appearance Urine Nitrite Ur Leukocyte Esterase Urine WBC Urine WBC Clumps Urine Bacteria Urine Mucus 01/30/17 01/31/17 01/31/17 21:28 08:22 08:22 WBC 17.3 H RBC 3.44 L Hgb 10.3 L Hct 33.0 L Plt Count Neutrophils # 15.3 H Lymphocytes # Sodium 133 L Potassium 3.3 L Chloride Creatinine Glucose POC Glucose (mg/dL) Osmolality Calcium AST Total Creatine Kinase Total Protein 5.4 L Albumin 2.9 L Urine Appearance Cloudy H Urine Nitrite Positive H Ur Leukocyte Esterase Large H Urine WBC 48 H Urine WBC Clumps Few H Urine Bacteria Moderate H Urine Mucus Rare H 02/01/17 02/01/17 02/01/17 07:26 07:26 12:28 WBC RBC 3.43 L Hgb 10.3 L Hct 33.0 L Plt Count Neutrophils # Lymphocytes # Sodium 136 L Potassium Chloride Creatinine Glucose POC Glucose (mg/dL) 104 H Osmolality Calcium AST Total Creatine Kinase Total Protein Albumin Urine Appearance Urine Nitrite Ur Leukocyte Esterase Urine WBC Urine WBC Clumps Urine Bacteria Urine Mucus 02/01/17 02/01/17 02/02/17 17:06 17:27 07:10 WBC RBC Hgb Hct Plt Count Neutrophils # Lymphocytes # Sodium Potassium Chloride Creatinine Glucose POC Glucose (mg/dL) 63 L 105 H 103 H Osmolality Calcium AST Total Creatine Kinase Total Protein Albumin Urine Appearance Urine Nitrite Ur Leukocyte Esterase Urine WBC Urine WBC Clumps Urine Bacteria Urine Mucus 02/02/17 02/02/17 02/02/17 07:54 07:54 07:54 WBC RBC Hgb 11.3 L Hct Plt Count Neutrophils # Lymphocytes # Sodium 128 L Potassium Chloride 93 L Creatinine Glucose 106 H POC Glucose (mg/dL) Osmolality 262 L Calcium AST Total Creatine Kinase Total Protein Albumin Urine Appearance Urine Nitrite Ur Leukocyte Esterase Urine WBC Urine WBC Clumps Urine Bacteria Urine Mucus 02/03/17 08:28 WBC RBC Hgb Hct Plt Count Neutrophils # Lymphocytes # Sodium 128 L Potassium Chloride 93 L Creatinine Glucose POC Glucose (mg/dL) Osmolality Calcium AST Total Creatine Kinase Total Protein Albumin Urine Appearance Urine Nitrite Ur Leukocyte Esterase Urine WBC Urine WBC Clumps Urine Bacteria Urine Mucus Assessment and Plan (1) Urinary retention with incomplete bladder emptying Status: Acute Code(s): R33.9 - RETENTION OF URINE, UNSPECIFIED (2) Multiple sclerosis Status: Chronic Code(s): G35 - MULTIPLE SCLEROSIS Plan: Patient is a 66-year-old woman diagnosed with multiple sclerosis who presented to the hospital with UTI. She has no new symptoms regarding her MS. Her main MS symptom is paresthesias of the hands and feet. She also has some visual scotomas. Patient should have EMG and nerve conduction study to rule out underlying peripheral neuropathy which can be done outpatient.
[2017-02-03] MEDS: MONTELUKAST 10 MG TAB PO SCH (20:49)
[2017-02-03] MEDS: SENNOSIDES 8.6 MG TAB PO SCH (20:49)
[2017-02-03 21:07] LABS: Glucose,Whole Blood 81 mg/dL (75-99)
--- NOTE | 2017-02-04 00:40 | P.PN ---
Subjective Principal diagnosis: Acute urinary tract infection Patient is admitted for urinary tract infection. Patient says her pain is not well controlled because of which I'll increase the frequency of ketorolac. Patient will not be started on Percocet because of opiate-induced urinary retention. Patient was evaluated by urology. Patient is also complaining of tingling and numbness in the and the right side of the body because of her history of multiple cirrhosis neurology will be consulted. Patient denied any dysuria, fevers,, nausea, lightheadedness patient is comparing of right hip pain. 02/03/2017 Patient did have a complex of chest pain or short of breath. No fever no chills. Neurology has seen the patient due to paresthesias. Patient needs outpatient neuro conduction studies. No other acute overnight issues. Objective - Vital Signs Vital signs: Vital Signs Temp 97.6 F 02/03/17 15:00 Pulse 72 02/03/17 15:00 Resp 18 02/03/17 15:00 BP 117/74 02/03/17 15:00 Pulse Ox 99 02/03/17 15:00 Intake & Output 02/03/17 02/03/17 02/04/17 06:59 18:59 06:59 Intake Total 1350 200 Output Total 3200 1300 Balance -1850 -1100 Intake: Oral 1350 200 Output: Urine 3200 1300 Stool 0 Other: Voiding Method Indwelling Catheter Indwelling Catheter - Exam GENERAL: The patient is alert and oriented x3, not in any acute distress. Well developed, well nourished. HEENT: Pupils are round and equally reacting to light. EOMI. No scleral icterus. No conjunctival pallor. Normocephalic, atraumatic. No pharyngeal erythema. No thyromegaly. CARDIOVASCULAR: S1 and S2 present. No murmurs, rubs, or gallops. PULMONARY: Chest is clear to auscultation, no wheezing or crackles. ABDOMEN: Soft, nontender, nondistended, normoactive bowel sounds. No palpable organomegaly. MUSCULOSKELETAL: No joint swelling or deformity. EXTREMITIES: No cyanosis, clubbing, or pedal edema. NEUROLOGICAL: Gross neurological examination did not reveal any new focal deficits. - Labs CBC & Chem 7: 02/02/17 07:54 02/03/17 08:28 Labs: Abnormal Lab Results - Last 24 Hours (Table) 02/03/17 Range/Units 08:28 Sodium 128 L (137-145) mmol/L Chloride 93 L (98-107) mmol/L Microbiology - Last 24 Hours (Table) 01/30/17 19:54 Blood Culture - Preliminary Blood No Growth after 72 hours Assessment and Plan Plan: #1sepsis: Secondary to E. coli urinary tract infection: Patient will continued on levofloxacin. Vancomycin was started in ER which was discontinued and patient urine cultures is having gram-negative bacilli #2 urinary retention: Patient does have history of multiple sclerosis but I believe his urinary retention is secondary to Percocet which were dyspnea. And patient is on baclofen as well. And neurology will be consulted. patient presently has Mcfadden catheter. Follow-up urology clinic as an outpatient. #3 hyponatremia: Hypervolemic hyponatremia expected to improve with IV fluids. Lasix will be decided patient has been using Lasix for peripheral edema. Doesn' t have any history of congestive heart failure. #4 possible sclerosis: Patient is comparing of new thickening and numbness in the right hand and right side of the face, neurology will be consulted. #5 fibromyalgia. #6 DVT presently not on not on anticoagulation dose but is on DVT prophylactic dose of Lovenox will have to discuss with the patient regarding this. #7 hypothyroidism continue with levothyroxine.
[2017-02-04] MEDS: LEVOTHYROXINE 50 MCG TAB PO SCH (00:52)
[2017-02-04] MEDS: GABAPENTIN 100 MG CAP PO SCH ×3 (02:25→13:16)
[2017-02-04] MEDS: BACLOFEN 10 MG TAB PO SCH ×3 (02:26→13:16)
[2017-02-04] MEDS: SODIUM CHLORIDE 0.9% 1,000 ML IV SCH (02:26)
[2017-02-04] MEDS: KETOROLAC 30 MG/ML 1 ML VIAL IVP PRN ×3 (04:07→13:20)
[2017-02-04] MEDS: ACETAMINOPHEN TAB 325 MG TAB PO PRN ×2 (06:31→13:16)
[2017-02-04 06:59] LABS: Glucose,Whole Blood 91 mg/dL (75-99)
[2017-02-04 07:33] VITALS: BP 148/83; TEMP 98.9
[2017-02-04] MEDS: ALPRAZolam 0.25 MG TAB PO PRN (09:07)
[2017-02-04] MEDS: ONDANSETRON 4 MG TAB PO PRN (09:07)
[2017-02-04] MEDS: FLUTICASONE 50MCG/SPRAY NASAL 16GM EA NOSTRIL SCH (09:11)
[2017-02-04] MEDS: CHOLECALCIFEROL 1,000 UNIT TAB PO SCH (09:11)
[2017-02-04] MEDS: DOCUSATE 100 MG CAP PO SCH (09:12)
[2017-02-04] MEDS: ENOXAPARIN 40 MG/0.4 ML SYRINGE SQ SCH (09:12)
[2017-02-04] MEDS: MAGNESIUM OXIDE 400 MG TAB PO SCH (09:13)
[2017-02-04] MEDS: HYDROCORTISONE 10 MG TAB PO SCH (09:14)
[2017-02-04 09:47] LABS: Blood Urea Nitrogen 8 mg/dL (7-17); Calcium 8.9 mg/dL (8.4-10.2); Carbon Dioxide 24 mmol/L (22-30); Glucose 86 mg/dL (74-99); Non-African American GFR(MDRD) >60 (>60 ml/min/1.73 sqM); Potassium 4.2 mmol/L (3.5-5.1); Sodium 124 mmol/L (137-145)
[2017-02-04 09:55] LABS: Anion Gap 9 mmol/L; Chloride 91 mmol/L (98-107)
[2017-02-04 09:59] LABS: Basophils % (A) 0 %; CH 30.3; CHCM 33.1; Eosinophils # (A) 0.1 k/uL (0-0.7); Eosinophils % (A) 1 %; HCT 39.2 % (34.0-46.0); HDW 2.84; Luc % (Auto) 2; Lymphocytes # (A) 0.7 k/uL (1.0-4.8); Lymphocytes % (A) 8 %; MCH 30.5 pg (25.0-35.0); MCHC 33.3 g/dL (31.0-37.0); MCV 91.7 fL (80.0-100.0); Mean Platelet Volume 6.6; Monocytes # (A) 0.4 k/uL (0-1.0); Monocytes % (A) 4 %; Neutrophils # (A) 7.8 k/uL (1.3-7.7); Neutrophils % (A) 85 %; RBC 4.27 m/uL (3.80-5.40); RDW 13.7 % (11.5-15.5); WBC 9.2 k/uL (3.8-10.6)
[2017-02-04 11:52] VITALS: PULSE 64
[2017-02-04 12:13] LABS: Glucose,Whole Blood 95 mg/dL (75-99)
--- NOTE | 2017-02-04 12:31 | P.DS ---
Providers Date of admission: 02/02/17 09:12 Expected date of discharge: 02/04/17 Attending physician: Laurie Burger Consults: 01/31/17 12:39 Consult Physician Routine Consulting Provider: Napoleon Graf Consult Reason/Comments: urinary retention. Do you want consulting provider notified?: Yes 02/01/17 12:50 Consult Physician Routine Consulting Provider: Albaro Castillo Consult Reason/Comments: urinary retention Do you want consulting provider notified?: Yes 02/03/17 10:41 Consult Physician Routine Consulting Provider: Jaime Warner Consult Reason/Comments: right sided numbess/tingling Do you want consulting provider notified?: Yes Primary care physician: [facility] Course: Discharge diagnosis: #1sepsis: Secondary to E. coli urinary tract infection: Patient will continued on levofloxacin. Vancomycin was started in ER which was discontinued and patient urine cultures is having gram-negative bacilli. #2 urinary retention: Patient does have history of multiple sclerosis but I believe his urinary retention is secondary to Percocet which were dced. And patient is on baclofen as well. And neurology was consulted. patient presently has Mcfadden catheter. Follow-up urology clinic as an outpatient. The patient had bladder overdistention which may make treatment of her incomplete bladder emptying more difficult in the short-term. Ideally the patient would be treated with intermittent catheterization but it's unclear whether she has enough dexterity in her hands to perform this. She says that she has difficulty at times in holding a pencil. For the time being her Mcfadden catheter should be left in place. She says she has an appointment to see a urologist in [place] next week but if she does well may be possible to give her a trial of self-catheterization in 2 or 3 days. #3 hyponatremia: Hypervolemic hyponatremia expected to improve with IV fluids. Lasix will be decided patient has been using Lasix for peripheral edema. Doesn' t have any history of congestive heart failure. #4 possible sclerosis: Patient is comparing of new thickening and numbness in the right hand and right side of the face, neurology will be consulted. #5 fibromyalgia. #6 DVT presently not on not on anticoagulation dose but is on DVT prophylactic dose of Lovenox will have to discuss with the patient regarding this. #7 hypothyroidism continue with levothyroxine. Patient is admitted for urinary tract infection. Urine culture grew E. coli which is susceptible to levofloxacin.. Patient will not be started on Percocet because of opiate-induced urinary retention. Patient was evaluated by urology. Patient is also complaining of tingling and numbness in the and the right side of the body because of her history of multiple cirrhosis neurology will be consulted. Patient denied any dysuria, fevers,, nausea, lightheadedness patient is comparing of right hip pain. 02/03/2017 Patient did have a complex of chest pain or short of breath. No fever no chills. Neurology has seen the patient due to paresthesias. Patient needs outpatient neuro conduction studies. No other acute overnight issues. On 02/04/2017 Patient denied any fever or chills no nausea vomiting or abdominal pain. No acute overnight issues. Patient is still for recess to rehab. Repeat CBC and BMP in next 2 days Patient Condition at Discharge: Fair Plan - Discharge Summary New Discharge Prescriptions: New Levofloxacin [Levaquin] 500 mg PO Q24H #3 tab Continue Cholecalciferol [Vitamin D3] 5,000 unit PO BID Loratadine [Claritin] 10 mg PO DAILY Montelukast [Singulair] 10 mg PO HS Levothyroxine Sodium [Synthroid] 50 mcg PO DAILY Ondansetron HCl [Zofran] 8 mg PO Q8HR PRN PRN Reason: Nausea Hydrocortisone [Cortef] 5 mg PO DAILY Gabapentin [Neurontin] 200 mg PO QID Magnesium Oxide [Magox 400] 400 mg PO DAILY #60 tablet Fluticasone Nasal Goodrich [Flonase Nasal Goodrich] 1 spr EA NOSTRIL DAILY Glucagon Emergency Kit 1 mg IM ONCE PRN PRN Reason: Blood Sugar - Low Senokot Extra 17.2mg 17.2 mg PO HS ALPRAZolam [Xanax] 0.25 mg PO Q8HR PRN PRN Reason: Anxiety Polyethylene Glycol 3350 [Miralax] 17 gm PO DAILY Enoxaparin [Lovenox] 40 mg SQ DAILY Docusate [Colace] 100 mg PO BID Acetaminophen [Tylenol] 650 mg PO Q4H Discontinued Baclofen [Lioresal] 10 mg PO QID Furosemide [Lasix] 40 mg PO DAILY oxyCODONE-APAP 5-325MG [Percocet 5-325 mg] 2 tab PO Q4HR PRN PRN Reason: Pain Discharge Medication List Cholecalciferol [Vitamin D3] 5,000 unit PO BID 11/04/13 [History] Loratadine [Claritin] 10 mg PO DAILY 11/04/13 [History] Montelukast [Singulair] 10 mg PO HS 11/04/13 [History] Levothyroxine Sodium [Synthroid] 50 mcg PO DAILY 02/11/14 [History] Ondansetron HCl [Zofran] 8 mg PO Q8HR PRN 06/29/14 [History] Hydrocortisone [Cortef] 5 mg PO DAILY 09/28/15 [History] Gabapentin [Neurontin] 200 mg PO QID 06/06/16 [History] Magnesium Oxide [Magox 400] 400 mg PO DAILY #60 tablet 07/31/16 [Rx] Fluticasone Nasal Goodrich [Flonase Nasal Goodrich] 1 spr EA NOSTRIL DAILY 08/20/16 [ History] Glucagon Emergency Kit 1 mg IM ONCE PRN 08/20/16 [History] ALPRAZolam [Xanax] 0.25 mg PO Q8HR PRN 01/30/17 [History] Acetaminophen [Tylenol] 650 mg PO Q4H 01/30/17 [History] Docusate [Colace] 100 mg PO BID 01/30/17 [History] Enoxaparin [Lovenox] 40 mg SQ DAILY 01/30/17 [History] Polyethylene Glycol 3350 [Miralax] 17 gm PO DAILY 01/30/17 [History] Senokot Extra 17.2mg 17.2 mg PO HS 01/30/17 [History] Levofloxacin [Levaquin] 500 mg PO Q24H #3 tab 02/04/17 [Rx] Follow up Appointment(s)/Referral(s): Urologist, patient's own Dr. adrianna Rittery [Other] - 1 Week Mike Suh MD [Primary Care Provider] - 1 Week (after dc from [facility]) Jamison Mann MD [REFERRING] - 3 Days (While at [facility]) Mandi Warner MD [STAFF PHYSICIAN] - 2 Weeks Activity/Diet/Wound Care/Special Instructions: Ecoli in urine- Antibx; Return to [facility] rehab cbc,bmp in 3days Discharge Disposition: TRANSFER TO SNF/F
[2017-02-04] MEDS: LEVOFLOXACIN 500 MG TAB PO SCH (13:16)
== END 2017-02-04 14:50 | DRG 872 ==
LOC: EC 18:27 → 4MS4W 23:21 → OBSVTOIN 02-02 09:12
PROVIDERS: ADMIT Internal Medicine; ATTEND Internal Medicine
DX: A41.51 Sepsis due to Escherichia coli [E. coli] (principal); D68.51 Activated protein C resistance; E27.40 Unspecified adrenocortical insufficiency; E87.1 Hypo-osmolality and hyponatremia; N39.0 Urinary tract infection, site not specified; G35 Multiple sclerosis; E03.9 Hypothyroidism, unspecified; F32.9 Major depressive disorder, single episode, unspecified; F41.0 Panic disorder [episodic paroxysmal anxiety]; G89.29 Other chronic pain; I73.00 Raynaud's syndrome without gangrene; J45.909 Unspecified asthma, uncomplicated; M79.7 Fibromyalgia; M81.0 Age-related osteoporosis without current pathological fracture; N39.41 Urge incontinence; G47.00 Insomnia, unspecified; I83.90 Asymptomatic varicose veins of unspecified lower extremity; M19.90 Unspecified osteoarthritis, unspecified site; M54.5 Low back pain; R33.0 Drug induced retention of urine; T40.2X5A Adverse effect of other opioids, initial encounter; F41.9 Anxiety disorder, unspecified; Z79.899 Other long term (current) drug therapy; Z79.01 Long term (current) use of anticoagulants; Z88.6 Allergy status to analgesic agent; Z88.1 Allergy status to other antibiotic agents; Z88.5 Allergy status to narcotic agent; Z88.0 Allergy status to penicillin; Z88.2 Allergy status to sulfonamides; Z88.8 Allergy status to other drugs, medicaments and biological substances; Z96.641 Presence of right artificial hip joint; Z96.642 Presence of left artificial hip joint; Z96.652 Presence of left artificial knee joint; Y92.9 Unspecified place or not applicable
CPT/HCPCS: 36415; 74177; 80048; 80053; 81001; 82550; 82553; 82570; 83605; 83930; 83935; 84300; 84484; 85025; 85027; 85610; 85730; 87040; 87077; 87086; 87186; 93005; 94760; 96361; 96365; 96366; 99285

== ENCOUNTER → 2017-03-05 | Outpatient (CLI) | payer MEDICARE, OTHER ==
[2017-03-05 13:05] LABS: Basophils % (A) 0 %; CHCM 33.3; Eosinophils # (A) 0.1 k/uL (0-0.7); Eosinophils % (A) 1 %; HCT 43.8 % (34.0-46.0); HDW 2.45; HGB 13.9 gm/dL (11.4-16.0); Luc # (Auto) 0.11; Luc % (Auto) 1; Lymphocytes # (A) 0.9 k/uL (1.0-4.8); Lymphocytes % (A) 10 %; MCH 29.7 pg (25.0-35.0); MCHC 31.7 g/dL (31.0-37.0); MCV 93.4 fL (80.0-100.0); Mean Platelet Volume 6.7; Monocytes # (A) 0.4 k/uL (0-1.0); Monocytes % (A) 4 %; Neutrophils # (A) 7.6 k/uL (1.3-7.7); Neutrophils % (A) 84 %; RBC 4.69 m/uL (3.80-5.40); RDW 15.1 % (11.5-15.5); WBC 9.1 k/uL (3.8-10.6); WBC (Perox) 8.87
[2017-03-05 13:22] LABS: ALT 36 U/L (9-52); AST 28 U/L (14-36); Alkaline Phosphatase 84 U/L (38-126); Anion Gap 14 mmol/L; Blood Urea Nitrogen 16 mg/dL (7-17); C Reactive Protein 10.2 mg/L (<10.0); Calcium 10.4 mg/dL (8.4-10.2); Carbon Dioxide 35 mmol/L (22-30); Chloride 86 mmol/L (98-107); Glucose 76 mg/dL (74-99); Non-African American GFR(MDRD) >60 (>60 ml/min/1.73 sqM); Potassium 3.9 mmol/L (3.5-5.1); Sodium 135 mmol/L (137-145); Total Bilirubin 0.7 mg/dL (0.2-1.3); Total Protein 8.5 g/dL (6.3-8.2)
[2017-03-05 14:37] LABS: Erythrocyte Sedimentation Rate 33 mm/hr (0-20)
== END ==
LOC: LABWHC1 11:52
PROVIDERS: ATTEND Orthopaedic Surgery
DX: M81.0 Age-related osteoporosis without current pathological fracture (principal); E07.9 Disorder of thyroid, unspecified; E03.9 Hypothyroidism, unspecified; K21.9 Gastro-esophageal reflux disease without esophagitis; E87.1 Hypo-osmolality and hyponatremia; Z96.641 Presence of right artificial hip joint; Z79.899 Other long term (current) drug therapy
CPT/HCPCS: 36415; 80053; 84443; 85025; 85652; 86140; 87086

== ENCOUNTER → 2017-03-05 | Outpatient (CLI) | payer MEDICARE, OTHER ==
--- NOTE | 2017-03-05 12:29 | MR ---
EXAMINATION TYPE: MR brain wo con DATE OF EXAM: 03/05/2017 12:16 PM COMPARISON: NONE HISTORY: paresthesias FINDINGS: The ventricles, basal cisterns and sulci overlying the cerebral convexities are mildly enlarged. There is evidence of mild periventricular white matter ischemic demyelination. Remote deep white matter insults are also noted. No acute edema is seen on diffusion weighted imaging. There is no evidence for midline shift or mass effect. Acute intracranial hemorrhage or extra-axial collection is not evident. The paranasal sinuses and mastoid air cells are well-aerated. IMPRESSION: Age-related atrophic and chronic small vessel ischemic change. No acute intracranial process at this time.
== END | disposition home or self-care (01) ==
LOC: RADMRIMAIN 10:00
PROVIDERS: ATTEND Psychiatry & Neurology Neurology
DX: G31.9 Degenerative disease of nervous system, unspecified (principal); I67.82 Cerebral ischemia; R20.2 Paresthesia of skin
CPT/HCPCS: 70551

== ENCOUNTER → 2017-05-08 | Outpatient (CLI) | payer MEDICARE, OTHER ==
--- NOTE | 2017-05-08 12:09 | BD ---
EXAMINATION TYPE: MG DEXA axial skeleton. DATE OF EXAM: 05/08/2017 COMPARISON: NONE CLINICAL HISTORY: PT IS A 66 YR OLD FEMALE...ICD10 CODE: M81.0 OSTEOPOROSIS Height: 60 Weight: 101 FRAX RISK QUESTIONS: Alcohol (3 or more units per day): NO Family History (Parent hip fracture): YES Glucocorticoids (More than 3mos): YES (Ex: prednisone, prednisolone, methylprednisolone, dexamethasone, and hydrocortisone). History of Fracture in Adulthood: ROBERTO Secondary Osteoporosis: YES 1. Type 1 Diabetes: NO 2. Hyperthyroidism: NO 3. Menopause before 45: YES 4. Malnutrition: ANEMIC, BUT NEVER BEEN TOLD MALNOURISHED. 5. Chronic liver disease: NO Rheumatoid Arthritis: NO Current Tobacco Use: NO RISK FACTORS HISTORY OF: LT SHOULDER, LT HAND,RT FOOT,LT FOOT.....ALL AN ADULT Spine Fracture: NO BUT SURGICAL REPAIR....LUMBAR SPINE When: AN ADULT History of Wrist Fracture: NO BREAKS BUT BILAT SURGICAL REPAIRS WITH SCREWS When: AND ADULT Surgery to Spine, BOTH WRISTS, BILAT HIPS REPLACEMENTS): When: AN ADULT Family History of Osteoporosis: YES, MOTHER, FATHER BOTH GRAND PARENTS, WITH HIP FXS Active: NO IN WHEEL CHAIR Diet low in dairy products/other sources of calcium: NO Postmenopausal woman: YES, EARLY 40'S Lost more than 2 inches in height since high school: YES Frequent falls: IN WHEEL CHAIR Poor Health: FRAIL Hyperparathyroidism: NO Adrenal Insufficiency: YES MEDICATIONS: Prednisone or other steroids: NASAL SPRAY ONLY How Long: FOR YRS Thyroid Medications: YES, SYNTHOID How Long: OVER 30 YRS Osteoporosis Medications: YES MOST RECENTLY FORTEO,, DIFFERENT MEDS FOR MANY YRS How Long: MANY YRS Additional Medications: CORTEF, FOR ADRENAL INSUFF. CYMBALTA, GLUCAGON, VIT D, REFLUX MEDS Additional History: HYPOGLYCEMIC, MS, SEVERE ARTHRITIS, EXAM MEASUREMENTS: Bone mineral densitometry was performed using the HTP System. MULTIPLE SURGICAL REPAIRS WITH HARDWARE......RT WRIST ONLY OPTION LEFT Bone mineral density about the R Wrist (g/cm2): 0.300 T Score values are as follows: -----Dist. R+U: -4.8 -----Prox. R+U: -5.5 -----Radius total: -6.5 Bone mineral density FIRST BONE DENSITY TEST AT [facility]. IMPRESSION: Osteoporosis (T Score less than -2.5) as noted by T Score values at the right breast as the patient h as had bilateral hip replacements and left breast surgery with metallic plates. There is increased fracture risk and therapy is usually indicated based on age. Re-Screen 1-2 years. NOTE: T-SCORE=SD OF THE YOUNG ADULT MEAN.
== END | disposition home or self-care (01) ==
LOC: RADBDWWP 08:08
PROVIDERS: ATTEND Internal Medicine Rheumatology
DX: M81.0 Age-related osteoporosis without current pathological fracture (principal)
CPT/HCPCS: 77081

== ENCOUNTER → 2017-07-21 | Outpatient (CLI) | payer MEDICARE, OTHER ==
[2017-07-21 12:54] LABS: HCT 32.7 % (34.0-46.0); HGB 9.9 gm/dL (11.4-16.0); Hypochromasia Moderate; MCH 25.9 pg (25.0-35.0); MCHC 30.4 g/dL (31.0-37.0); MCV 85.1 fL (80.0-100.0); Mean Platelet Volume 6.8; Platelet Count 373 k/uL (150-450); RBC 3.84 m/uL (3.80-5.40); RDW 15.1 % (11.5-15.5); WBC 4.2 k/uL (3.8-10.6)
[2017-07-21 13:12] LABS: ALT 15 U/L (9-52); AST 27 U/L (14-36); Albumin 4.2 g/dL (3.5-5.0); Alkaline Phosphatase 68 U/L (38-126); Anion Gap 11 mmol/L; Blood Urea Nitrogen 11 mg/dL (7-17); Calcium 9.2 mg/dL (8.4-10.2); Carbon Dioxide 36 mmol/L (22-30); Chloride 87 mmol/L (98-107); Cholesterol 202 mg/dL (<200); Glucose 110 mg/dL (74-99); HDL Cholesterol 82 mg/dL (40-60); LDL Cholesterol,Calculated 105 mg/dL (0-99); Magnesium 1.9 mg/dL (1.6-2.3); Phosphorus 3.9 mg/dL (2.5-4.5); Potassium 3.8 mmol/L (3.5-5.1); Sodium 134 mmol/L (137-145); Total Bilirubin 0.3 mg/dL (0.2-1.3); Total Protein 6.6 g/dL (6.3-8.2); Triglycerides 75 mg/dL (<150)
[2017-07-21 13:13] LABS: Partial Thromboplastin Time 24.3 sec (22.0-30.0); Prothrombin Time 9.6 sec (9.0-12.0)
[2017-07-21 21:21] LABS: Parathyroid Hormone Intact 92.1 pg/mL (14.0-72.0)
[2017-07-21 21:31] LABS: Hemoglobin A1C 5.3 % (4.0-6.0)
[2017-07-22 01:02] LABS: Iron Saturation 4.52 (12.00-45.00)
[2017-07-22 01:11] LABS: Vitamin D 25 Hydroxy 54.7 ng/mL (30.0-100.0)
[2017-07-22 01:33] LABS: Folate, Serum >24.0 ng/mL
[2017-07-22 15:04] LABS: Vitamin A 44 ug/dL (38-106)
[2017-07-22 15:26] LABS: Zinc, Serum 100 ug/dL (60-130)
[2017-07-23 03:26] LABS: Vitamin B1 31 ug/L (38-122)
[2017-07-24 11:58] LABS: Selenium 118 mcg/L (63-160)
== END | disposition home or self-care (01) ==
LOC: LABWHC1 11:33
PROVIDERS: ATTEND Surgery Plastic and Reconstructive Surgery
DX: E55.9 Vitamin D deficiency, unspecified (principal); K74.1 Hepatic sclerosis; T56.894A Toxic effect of other metals, undetermined, initial encounter; E44.0 Moderate protein-calorie malnutrition; D50.9 Iron deficiency anemia, unspecified; E89.1 Postprocedural hypoinsulinemia; E21.1 Secondary hyperparathyroidism, not elsewhere classified
CPT/HCPCS: 36415; 80053; 80061; 82306; 82525; 82607; 82728; 82746; 83036; 83540; 83550; 83735; 83970; 84100; 84134; 84255; 84425; 84443; 84590; 84630; 85027; 85610; 85730

== ENCOUNTER → 2018-01-28 | Outpatient (CLI) | payer MEDICARE, OTHER ==
[2018-01-28 13:50] VITALS: BP 121/82; PULSE 87; RESP 15; TEMP 98.5; BMI 19.5
--- NOTE | 2018-01-28 14:09 | P.PN ---
Subjective Progress Note Date: 01/28/18 HPI: She complains of abdominal pain and change in bowel habits. She fell and has broken her hips. She has been lost to follow-up due to the of her . She has a family history of her father of colon cancer. Last colonoscopy in 2004. She had upper esophageal. ABDOMEN: Epigastric tenderness. PLAN: 1. Recommend CT of the abdomen and pelvis with oral and IV contrast for bowel obstruction 2. Recommend EGD and colonoscopy for dysphagia and overdue colon cancer screening. 3. Blood work for gastric bypass. Objective - Vital Signs Vital signs: Vital Signs Temp 98.5 F 01/28/18 13:42 Pulse 87 01/28/18 13:42 Resp 15 01/28/18 13:42 BP 121/82 01/28/18 13:42 Pulse Ox Intake & Output 01/27/18 01/28/18 01/28/18 18:59 06:59 18:59 Weight 45.813 kg
[2018-01-28 15:40] LABS: HCT 36.7 % (34.0-46.0); HGB 11.5 gm/dL (11.4-16.0); MCH 28.9 pg (25.0-35.0); MCHC 31.4 g/dL (31.0-37.0); Mean Platelet Volume 6.6; Platelet Count 524 k/uL (150-450); RBC 3.99 m/uL (3.80-5.40); RDW 14.2 % (11.5-15.5); WBC 10.5 k/uL (3.8-10.6)
[2018-01-28 15:50] LABS: INR 0.9 (<1.2); Prothrombin Time 9.4 sec (9.0-12.0)
[2018-01-28 16:07] LABS: Partial Thromboplastin Time 21.2 sec (22.0-30.0)
[2018-01-28 16:08] LABS: ALT 31 U/L (9-52); AST 42 U/L (14-36); Albumin 3.9 g/dL (3.5-5.0); Alkaline Phosphatase 144 U/L (38-126); Anion Gap 11 mmol/L; Blood Urea Nitrogen 13 mg/dL (7-17); Calcium 9.1 mg/dL (8.4-10.2); Carbon Dioxide 32 mmol/L (22-30); Chloride 89 mmol/L (98-107); Cholesterol 213 mg/dL (<200); Glucose 89 mg/dL (74-99); HDL Cholesterol 86 mg/dL (40-60); LDL Cholesterol,Calculated 102 mg/dL (0-99); Magnesium 2.3 mg/dL (1.6-2.3); Phosphorus 3.8 mg/dL (2.5-4.5); Sodium 132 mmol/L (137-145); Total Bilirubin 0.5 mg/dL (0.2-1.3); Total Protein 6.5 g/dL (6.3-8.2); Triglycerides 125 mg/dL (<150)
[2018-01-29 00:55] LABS: Hemoglobin A1C 4.9 % (4.0-6.0)
[2018-01-29 01:09] LABS: Parathyroid Hormone Intact 57.3 pg/mL (14.0-72.0)
[2018-01-29 01:13] LABS: Vitamin D 25 Hydroxy 54.5 ng/mL (30.0-100.0)
[2018-01-29 01:32] LABS: Folate, Serum >24.0 ng/mL; Iron Saturation 3.49 (12.00-45.00)
[2018-01-29 01:36] LABS: Vitamin B12 >4000.0 pg/mL (211-911)
[2018-01-29 15:08] LABS: Zinc, Serum 33 ug/dL (60-130)
[2018-01-30 05:17] LABS: Vitamin B1 124 ug/L (38-122)
[2018-01-30 05:30] LABS: Vitamin A 44 ug/dL (38-106)
== END | disposition home or self-care (01) ==
LOC: BARWHC3 12:42
PROVIDERS: ATTEND Surgery Plastic and Reconstructive Surgery
DX: E66.01 Morbid (severe) obesity due to excess calories (principal); R10.9 Unspecified abdominal pain; E21.1 Secondary hyperparathyroidism, not elsewhere classified; E89.1 Postprocedural hypoinsulinemia; D50.9 Iron deficiency anemia, unspecified; K90.89 Other intestinal malabsorption; E55.9 Vitamin D deficiency, unspecified; K74.1 Hepatic sclerosis; N19 Unspecified kidney failure; K50.90 Crohn's disease, unspecified, without complications; Z68.1 Body mass index [BMI] 19.9 or less, adult
CPT/HCPCS: 84255; 84134; 84425; 80061; 80053; 82607; 82728; 82525; 82746; 83540; 83550; 83735; 84100; 84443; 84590; 84630; 85027; 85610; 85730; 82306; 83970; 83036; 36415; G0463; 99211

== ENCOUNTER → 2018-02-06 | Outpatient (CLI) | payer MEDICARE, OTHER ==
--- NOTE | 2018-02-06 12:22 | CT ---
EXAMINATION TYPE: CT abdomen pelvis w con DATE OF EXAM: 02/06/2018 HISTORY: Wt loss, nausea, and vomiting with pain. CT DLP: 643mGycm Automated Exposure Control for Dose Reduction was Utilized. CONTRAST: CT scan of the abdomen and pelvis is performed with IV Contrast, patient injected with 100 mL of Isov ue 300. COMPARISON: Prior CT abdomen pelvis January 30, 2017 FINDINGS: Evaluation noted suboptimal as patient has virtually no intra-abdominal fat LUNG BASES: Some patchy bibasilar linear scarring and/or atelectasis remains present. LIVER/GB: Cholecystectomy clips are redemonstrated. PANCREAS: Pancreas is not well seen and felt moderately diffusely atrophic. SPLEEN: No significant abnormality is seen. ADRENALS: No significant abnormality is seen. KIDNEYS: There is symmetric cortical medullary uptake and excretion from both kidneys without evidenc e of hydronephrosis bilaterally. There is persistent distended bladder extending to the upper pelvis at level of iliac crests. BOWEL: There is slightly better visualization of small to moderate size hiatal hernia on current stud y. Evaluation bowel noted suboptimal due to patient having virtually no intra-abdominal fat. Surgical sutures epigastric region are redemonstrated. Oral contrast does not reach colonic level making eval uation slightly suboptimal. There is no suspicious small or large bowel dilatation. There is prominen ce of fecal material near the splenic flexure and in the rectum on current study. UTERUS/ADNEXA: Suboptimal evaluation due to streak artifact from hip hardware. LYMPH NODES: No greater than 1cm abdominal or pelvic lymph nodes are appreciated. OSSEOUS STRUCTURES: Metallic hardware from bilateral hip arthroplasty causes streak artifact limiting evaluation of pelvic structures similar to prior. There is extensive postsurgical change in the lowe r lumbar spine with artificial metallic disc material and posterior interpedicular rods and screws tr ansfixing L3-S1 levels. OTHER: Focal moderate calcified plaque at bifurcation of aorta is redemonstrated. IMPRESSION: 1. Redemonstration of abnormal distended bladder. Correlate clinically to evaluate for outlet obstruc tion. 2. Overall nonobstructive bowel gas pattern. Moderate mid and distal colonic fecal stasis is felt pre sent.
== END | disposition home or self-care (01) ==
LOC: RADCTMAIN 08:00
PROVIDERS: ATTEND Surgery Plastic and Reconstructive Surgery
DX: N32.89 Other specified disorders of bladder (principal)
CPT/HCPCS: 74177; 36415; Q9967

== ENCOUNTER → 2018-02-06 | Outpatient (CLI) | payer MEDICARE, OTHER ==
[2018-02-06 09:27] LABS: Appearance,Urine Cloudy (Clear); Bacteria,Urine Few /hpf; Bilirubin,Urine Negative (Negative); Blood,Urine Negative (Negative); Color,Urine Light Yellow; Glucose,Urine (UA) Negative (Negative); Hyaline Casts,Urine 4 /lpf (0-2); Ketones,Urine Negative (Negative); Leukocyte Esterase,Urine Large (Negative); Mucus,Urine Rare /hpf; Nitrite,Urine Positive (Negative); PH, Urine 7.5 (5.0-8.0); Protein,Urine Negative (Negative); RBC,Urine 4 /hpf (0-5); Specific Gravity,Urine 1.005 (1.001-1.035); Urobilinogen,Urine <2.0 mg/dL (<2.0); WBC,Urine >182 /hpf (0-5)
== END | disposition home or self-care (01) ==
LOC: LABWHC1 08:12
PROVIDERS: ATTEND Internal Medicine Nephrology
DX: N39.0 Urinary tract infection, site not specified (principal)
CPT/HCPCS: 81001; 87077; 87086; 87186

== ENCOUNTER → 2018-03-02 | Outpatient (CLI) | payer MEDICARE, OTHER ==
--- NOTE | 2018-03-03 14:02 | NM ---
EXAMINATION TYPE: NM WBC limited DATE OF EXAM: 03/03/2018 COMPARISON: CT abdomen pelvis February 06, 2018 HISTORY: History of right femur revision surgery November 19, 2017 presents with persistent pain after fra cture injury in September and October TECHNIQUE: Following administration of 20.5 mCi Tc99m Ceretec. Images obtained 4 hour(s) and 21 adam r(s) post injection of the pelvis in multiple projections. FINDINGS: Normal excretion in bladder is present. There is lucency from bilateral hip arthroplasties noted. No suspicious increased radiotracer uptake surrounding the right hip prosthesis is identified versus opp osite left side to suggest acute infection currently. Imaging is extended through the bilateral dista l femurs. IMPRESSION: As above.
== END | disposition home or self-care (01) ==
LOC: RADNMMAIN 02-26 06:49
PROVIDERS: ATTEND Orthopaedic Surgery
DX: Z53.9 Procedure and treatment not carried out, unspecified reason (principal)
CPT/HCPCS: 78805

== ENCOUNTER → 2018-03-02 | Day surgery (SDC) | payer MEDICARE, OTHER ==
--- NOTE | 2018-03-02 11:12 | US ---
EXAMINATION TYPE: US guide vascular access DATE OF EXAM: 03/02/2018 HISTORY: Needs IV access for nuclear medicine white blood cell scan, multiple failed attempts at IV a ccess PROCEDURE: Maximal barrier technique utilized. The skin overlying the basilic vein was localized with ultrasoun d and the vein was noted to be compressible and patent by ultrasound and ultrasound image was obtaine d and submitted on patient's chart. Under direct ultrasound guidance a 20-gauge Angiocath was advanc ed into the vein and fixed in place. Approximately 60 cc of blood were aspirated for patient's medici ne exam. Catheter was aspirated and flushed with sterile saline. Hemostasis achieved. Catheter fix ed in place. No immediate complication. IMPRESSION: Ultrasound-guided venipuncture, this procedure performed by the undersigned.
== END ==
LOC: RADUSMAIN 10:32
PROVIDERS: ATTEND Radiology Diagnostic Radiology
DX: Z53.9 Procedure and treatment not carried out, unspecified reason (principal)
CPT/HCPCS: 76937

== ENCOUNTER 2018-05-27 08:17 | Day surgery (SDC) | payer MEDICARE, OTHER ==
[2018-05-26 09:48] VITALS: BMI 18.0
[~2018-05-27 08:17] MED LIST changes: +LACTATED RINGERS 1,000 ML IV SCH; +LIDOCAINE 1% 20 ML VIAL (10MG/ML) FOR IV START INTRADERMA PRN; -PREMYELOGRAM MEDICATION REVIEW 1 EACH MISC PO ONE
--- NOTE | 2018-05-27 08:49 | P.GSHP ---
History of Present Illness H&P Date: 05/27/18 CHIEF COMPLAINT: GERD and colon screen HISTORY OF PRESENT ILLNESS: The patient is a 67-year-old female who presents with gastroesophageal reflux disease and need for colon screen. Upper and lower endoscopy were offered for further evaluation and management. PAST MEDICAL HISTORY: Please see list. PAST SURGICAL HISTORY: Please see list. MEDICATIONS: Please see list. ALLERGIES: Please see list. SOCIAL HISTORY: No illicit drug use FAMILY HISTORY: No reports of Crohn disease or ulcerative colitis. REVIEW OF ORGAN SYSTEMS: CONSTITUTIONAL: No reports of fevers or chills. GI: Denies any blood in stools or constipation. PHYSICAL EXAM: VITAL SIGNS: Stable GENERAL: Well-developed pleasant in no acute distress. HEENT: No scleral icterus. Extraocular movements grossly intact. Moist buccal mucosa. NECK: Supple without lymphadenopathy. CHEST: Unlabored respirations. Equal bilateral excursions. CARDIOVASCULAR: Regular rate and rhythm. Distal 2+ pulses. ABDOMEN: Soft, nondistended. MUSCULOSKELETAL: No clubbing, cyanosis, or edema. ASSESSMENT: 1. Gastroesophageal reflux disease 2. Colon screen. PLAN: 1. Recommend proceeding with an upper and lower endoscopy Past Medical History Past Medical History: Blood Disorder, Deep Vein Thrombosis (DVT), Fibromyalgia, GERD/Reflux, Hypertension, Osteoarthritis (OA), Respiratory Disorder, Thyroid Disorder Additional Past Medical History / Comment(s): MULTIPLE SCLEROSIS. ADRENAL INSUFFICIENCY & PITUITARY IMBALANCE .,ADRENAL INSUFFICIENCY, HYPOTENSION- STATES NORVASC STABILIZES HER BP. , VASOPRESSOR SYNCOPE, LEIDEN FACTOR V., IRON DEFICIENT ANEMIA, HYPOGLYCEMIA- STATES ACARBOSE USED FOR ADRENAL INSUFFICIENCY. , CHRONIC NAUSEA, HX DVT LEGS, UTI'S, VARICOSE VEINS. Chronic nausea. DVT ADELINA LEGS, UTI'S. VARICOSE VEINS. , OSTEOPOROSIS, RAYNAUDS, INSOMNIA CHRONIC FATIGUE., HX OF GAUDENCIO MITCHELL.,ENVIRONMENTAL ALLERGIES., BACK PAIN, HX OF FALLS, INCONTINENT OF URINE- WEARS BRIEFS., DIFFICULTY SWALLOWING, STATES UP TO 9 DAYS WITH NO BM, BLOATING AND CHANGE IN STOOL., STATES SHE USES A CANE, WALKER AND WHEELCHAIR. History of Any Multi-Drug Resistant Organisms: None Reported Past Surgical History: Adenoidectomy, Back Surgery, Bariatric Surgery, Section, Cholecystectomy, Hernia Repair, Joint Replacement, Orthopedic Surgery, Tonsillectomy Additional Past Surgical History / Comment(s): ORIGINAL STOMACH STAPLING BY DR. WILLSON, RE-DONE BY DR. WING WITH "3/4" OF STOMACH REMOVED. ORTHO: Adelina feet, adelina hand surg-mult, NECK SURGERY x2, RIGHT ROTATOR CUFF, Lt hip replacement, LEFT knee replacement. Left eye surg (TEAR DUCT). Nasal surg. x2. Hernia repair with excess skin removed.back x 2, screw left foot/removal of neuroma, screws left hand thumb, right hip replacement X5 ., RIGHT femur spiral Fx with pins,rods,wires in femur and right hip replacement. Past Anesthesia/Blood Transfusion Reactions: Previous Problems w/ Anesthesia Additional Past Anesthesia/Blood Transfusion Reaction / Comment(s): States "unable to urinate after surgery for approx 4 days" (spinal anesthesia) . Past Psychological History: Anxiety, Depression, Panic Disorder Additional Psychological History / Comment(s): . Smoking Status: Never smoker Past Alcohol Use History: None Reported Past Drug Use History: None Reported - Past Family History Mother Family Medical History: Cancer, Deep Vein Thrombosis (DVT), Pulmonary Embolus Additional Family Medical History / Comment(s): bladder cancer, kidney removed, multiple heart bypass surgeries, Father Family Medical History: Cancer, Deep Vein Thrombosis (DVT) Additional Family Medical History / Comment(s): CABG,colorectal CA Sister(s) Family Medical History: Pulmonary Embolus Medications and Allergies Home Medications Medication Instructions Recorded Confirmed Type Cholecalciferol [Vitamin D3] 5,000 unit PO BID 11/04/13 05/26/18 History Loratadine [Claritin] 10 mg PO DAILY 11/04/13 05/26/18 History Montelukast [Singulair] 10 mg PO HS 11/04/13 05/26/18 History Levothyroxine Sodium [Synthroid] 50 mcg PO MOTUWETHFRSA 02/11/14 05/26/18 History Ondansetron HCl [Zofran] 8 mg PO Q8HR PRN 06/29/14 05/26/18 History Hydrocortisone [Cortef] 5 mg PO BID 09/28/15 05/26/18 History Fluticasone Nasal [place] [Flonase 1 spr EA NOSTRIL BID 08/20/16 05/26/18 History Nasal [place]] Glucagon Emergency Kit 1 mg IM ONCE PRN 08/20/16 05/26/18 History ALPRAZolam [Xanax] 0.25 mg PO Q8HR PRN 01/30/17 05/26/18 History Docusate [Colace] 100 mg PO BID 01/30/17 05/26/18 History Biotin 5 mg PO BID 06/03/17 05/26/18 History DULoxetine HCL [Cymbalta] 60 mg PO DAILY 06/03/17 05/26/18 History Folic Acid 0.8 mg PO BID 06/03/17 05/26/18 History Furosemide [Lasix] 20 mg PO 1600 06/03/17 05/26/18 History Furosemide [Lasix] 40 mg PO QAM 06/03/17 05/26/18 History Lidocaine 5% Patch [Lidoderm] 2 patch TOPICAL DAILY 06/03/17 05/26/18 History Magnesium Oxide [Magox 400] 400 mg PO BID 06/03/17 05/26/18 History Multivitamin [Multivitamins Adult 2 each PO DAILY 06/03/17 05/26/18 History Gummies] Oxybutynin Chloride 5 mg PO QID 06/03/17 05/26/18 History diphenhydrAMINE [Benadryl] 25 mg PO TID PRN 06/03/17 05/26/18 History oxyCODONE-APAP 10-325MG [Percocet 1 tab PO Q8HR PRN 06/03/17 05/26/18 History 10-325 mg] ARIPiprazole [Abilify] 20 mg PO DAILY 05/26/18 05/26/18 History Acarbose [Precose] 25 mg PO TID 05/26/18 05/26/18 History Baclofen 10 mg PO BID 05/26/18 05/26/18 History Cyanocobalamin (Vitamin B-12) 5,000 mcg PO DAILY 05/26/18 05/26/18 History [Vitamin B12] Diclofenac Epolamine [Flector 1.3% 1 patch TRANSDERM Q12HR 05/26/18 05/26/18 History Patch] Diclofenac Sodium Gel [Voltaren 2 gm TOPICAL QID 05/26/18 05/26/18 History Gel] Gabapentin [Neurontin] 300 mg PO BID 05/26/18 05/26/18 History Gabapentin [Neurontin] 600 mg PO HS 05/26/18 05/26/18 History L.acidoph,Paracasei, B.lactis 2 each PO DAILY 05/26/18 05/26/18 History [Probiotic] Levothyroxine Sodium [Synthroid] 75 mcg PO MANCILLA 05/26/18 05/26/18 History Naloxegol Oxalate [Movantik] 25 mg PO DAILY 05/26/18 05/26/18 History Nitrofurantoin Monohyd/M-Cryst 100 mg PO QAM 05/26/18 05/26/18 History [Macrobid] Omeprazole [PriLOSEC] 40 mg PO DAILY 05/26/18 05/26/18 History Solu Cortef 1 dose IM ONCE PRN 05/26/18 History Thiamine [Vitamin B-1] 100 mg PO DAILY 05/26/18 05/26/18 History Zinc 50 mg PO DAILY 05/26/18 05/26/18 History amLODIPine BESYLATE [Norvasc] 5 mg PO DAILY 05/26/18 05/26/18 History fentaNYL [Duragesic 12MCG/HR] 12 mcg TRANSDERM Q72H 05/26/18 05/26/18 History Allergies Allergy/AdvReac Type Severity Reaction Status Date / Time amoxicillin trihydrate Allergy Nausea & Verified 05/27/18 08:44 [From Augmentin] Vomiting,DIARRHEA,HIVES ciprofloxacin HCl Allergy Rash/Hives, Verified 05/27/18 08:44 [From Cipro] NAUSEA/VOMITING/DIARRHEA clarithromycin [From Biaxin] Allergy Rash/Hives, Verified 05/27/18 08:44 NAUSEA/VOMI TING/DIARRH EA diflunisal [From Dolobid] Allergy Rash/Hives,upset Verified 05/27/18 08:44 stomach ergotamine tartrate Allergy Anaphylaxis Verified 05/27/18 08:44 [From Cafergot] ,SOB fludrocortisone Allergy unable to Verified 05/27/18 08:44 [From Florinef] unrinate hydromorphone [From Dilaudid] Allergy Unknown Verified 05/27/18 08:44 metoclopramide HCl Allergy "pseudo Verified 05/27/18 08:44 [From Reglan] parkinsons" metronidazole [From Flagyl] Allergy hives,upset Verified 05/27/18 08:44 stomach,migraine sucralfate [From Carafate] Allergy Swelling Verified 05/27/18 08:44 sulfamethoxazole Allergy Rash/Hives, Verified 05/27/18 08:44 [From Bactrim] NAUSEA,MIGR AINES,diarr hea trimethoprim [From Bactrim] Allergy Rash/Hives, Verified 05/27/18 08:44 NAUSEA,MIGR AINES,diarr hea topiramate [From Topamax] AdvReac Severe Nausea Verified 05/27/18 08:44 aspirin AdvReac STATES Verified 05/27/18 08:44 "STOMACH DOES NOT TOLERATE ASPIRIN" can take ecotrin ketamine AdvReac visual Verified 05/27/18 08:44 disturbance and halluciations for several days Metronidazole HCl AdvReac hives,upset Verified 05/27/18 08:44 [From Flagyl] stomach,migraine potassium clavulanate AdvReac Nausea & Verified 05/27/18 08:44 [From Augmentin] Vomiting,DIARRHEA,HIVES diflusnisol Allergy Rash/Hives Uncoded 05/27/18 08:44 oral morphine AdvReac Nausea & Uncoded 05/27/18 08:44 Vomiting & Diarrhea
[2018-05-27 09:13] VITALS: RESP 16; TEMP 98.2
[2018-05-27 09:32] LABS: Glucose,Whole Blood 99 mg/dL (75-99)
[2018-05-27] MEDS ORDERED: PROPOFOL 10 MG/ML 20 ML VIAL IV ONE (09:34)
--- NOTE | 2018-05-27 09:58 | P.PCN ---
Date of Procedure: 05/27/18 Description of Procedure: PREOPERATIVE DIAGNOSIS: Dysphagia. s/p Juan Ramon-en-y gastric bypass. Nausea with vomiting. POSTOPERATIVE DIAGNOSIS: Dysphagia. s/p Juanr Amon-en-y gastric bypass. Nausea with vomiting. Presbyesophagus Esophageal stricture OPERATION: Esophagogastrojejunoscopy with balloon dilatation 20 mm. SURGEON: Linda Ellsworth MD ANESTHESIA: MAC. INDICATIONS: The patient is a 67-year-old female who presents with a history of dysphagia, gastric bypass including nausea and vomiting. Benefits and risks of the procedure were described. Informed consent was obtained. DESCRIPTION: The patient was brought into the endoscopy suite and laid in the left lateral decubitus position. After a timeout was confirmed, the procedure was initiated. An Olympus gastroscope was passed along the posterior oropharynx down to the distal esophagus where the squamocolumnar junction was unremarkable. The gastric pouch was entered. A esophageal stricture of 15 mm was found as the adult gastroscope was 9.5 mm in size. A [employer] balloon dilator was placed through the scope. Final insufflation up to 20 mm was performed with a total of 2 minutes. The scope was advanced up to 60 cm from the incisors into the Juan Ramon limb. The mucosa of the gastrojejunal anastomosis was intact. No chronic gastrojejunal marginal ulcer was encountered. No full-thickness injury was encountered. The GI tract was desufflated. The patient tolerated the procedure well. FINDINGS: Distal esophageal stricture of approximately 15 mm encountered. No chronic gastrojejunal ulceration encountered. Successful balloon dilatation to 20 mm. RECOMMENDATIONS: Upper endoscopy as needed Recommend esophagram
--- NOTE | 2018-05-27 10:17 | P.PCN ---
Date of Procedure: 05/27/18 Description of Procedure: PREOPERATIVE DIAGNOSIS: Change in bowel habits Diarrhea POSTOPERATIVE DIAGNOSIS: Change in bowel habits Diarrhea Poor colonoscopy prep Diverticulosis, scattered. OPERATION: Colonoscopy to the ileocecal valve Colonoscopy with random cold forceps biopsies. SURGEON: Linda Ellsworth MD. ANESTHESIA: MAC. INDICATIONS: The patient is a 67-year-old female who presents with change in bowel habits and severe diarrhea. Benefits and risks were described and informed consent was obtained. DESCRIPTION OF PROCEDURE: The patient had undergone Gatorade, MiraLAX and Dulcolax prep. She had been brought into the operating room and laid in the left lateral decubitus position. After adequate intravenous sedation, the rectum was examined with 2% lidocaine jelly. No external hemorrhoids were encountered. The rectal tone was within normal limits. No lesions were palpated in the rectal vault. An Olympus colonoscope was advanced until the ileocecal valve and appendiceal orifice were clearly viewed. The prep was poor without clear visualization of the mucosal folds. The scope was slowly removed. Scattered diverticulosis was encountered. No colonic polyps were found. Random cold forceps biopsies were obtained for microscopic colitis. Retroflexion of the scope demonstrated grade 1 internal hemorrhoids without active bleeding or inflammation. The colon was desufflated. The patient had tolerated the procedure well. Withdrawal time was over 6 minutes. FINDINGS: Internal hemorrhoids, grade 1 No external prolapsed hemorrhoids. No arteriovenous malformations. No adenomatous polyps. Scattered sigmoid diverticulosis Poor colonoscopy prep RECOMMENDATIONS: Lower endoscopy in 5 years, 2022 for family history of colon cancer Plan - Discharge Summary New Discharge Prescriptions: No Action Cholecalciferol [Vitamin D3] 5,000 unit PO BID Loratadine [Claritin] 10 mg PO DAILY Montelukast [Singulair] 10 mg PO HS Levothyroxine Sodium [Synthroid] 50 mcg PO MOTUWETHFRSA Ondansetron HCl [Zofran] 8 mg PO Q8HR PRN PRN Reason: Nausea Hydrocortisone [Cortef] 5 mg PO BID Fluticasone Nasal [place] [Flonase Nasal [place]] 1 spr EA NOSTRIL BID Glucagon Emergency Kit 1 mg IM ONCE PRN PRN Reason: Blood Sugar - Low ALPRAZolam [Xanax] 0.25 mg PO Q8HR PRN PRN Reason: Anxiety Docusate [Colace] 100 mg PO BID Oxybutynin Chloride 5 mg PO QID Furosemide [Lasix] 20 mg PO 1600 Furosemide [Lasix] 40 mg PO QAM DULoxetine HCL [Cymbalta] 60 mg PO DAILY Folic Acid 0.8 mg PO BID Multivitamin [Multivitamins Adult Gummies] 2 each PO DAILY Biotin 5 mg PO BID diphenhydrAMINE [Benadryl] 25 mg PO TID PRN PRN Reason: Itching oxyCODONE-APAP 10-325MG [Percocet 10-325 mg] 1 tab PO Q8HR PRN PRN Reason: Pain Lidocaine 5% Patch [Lidoderm] 2 patch TOPICAL DAILY Magnesium Oxide [Magox 400] 400 mg PO BID Gabapentin [Neurontin] 300 mg PO BID Gabapentin [Neurontin] 600 mg PO HS Levothyroxine Sodium [Synthroid] 75 mcg PO MANCILLA ARIPiprazole [Abilify] 20 mg PO DAILY Thiamine [Vitamin B-1] 100 mg PO DAILY Nitrofurantoin Monohyd/M-Cryst [Macrobid] 100 mg PO QAM Baclofen 10 mg PO BID Zinc 50 mg PO DAILY Omeprazole [PriLOSEC] 40 mg PO DAILY L.acidoph,Paracasei, B.lactis [Probiotic] 2 each PO DAILY Cyanocobalamin (Vitamin B-12) [Vitamin B12] 5,000 mcg PO DAILY fentaNYL [Duragesic 12MCG/HR] 12 mcg TRANSDERM Q72H Diclofenac Sodium Gel [Voltaren Gel] 2 gm TOPICAL QID Naloxegol Oxalate [Movantik] 25 mg PO DAILY Diclofenac Epolamine [Flector 1.3% Patch] 1 patch TRANSDERM Q12HR Acarbose [Precose] 25 mg PO TID Solu Cortef 1 dose IM ONCE PRN PRN Reason: trauma or severe illness amLODIPine BESYLATE [Norvasc] 5 mg PO DAILY Discharge Medication List Cholecalciferol [Vitamin D3] 5,000 unit PO BID 11/04/13 [History] Loratadine [Claritin] 10 mg PO DAILY 11/04/13 [History] Montelukast [Singulair] 10 mg PO HS 11/04/13 [History] Levothyroxine Sodium [Synthroid] 50 mcg PO MOTUWETHFRSA 02/11/14 [History] Ondansetron HCl [Zofran] 8 mg PO Q8HR PRN 06/29/14 [History] Hydrocortisone [Cortef] 5 mg PO BID 09/28/15 [History] Fluticasone Nasal [place] [Flonase Nasal [place]] 1 spr EA NOSTRIL BID 08/20/16 [ History] Glucagon Emergency Kit 1 mg IM ONCE PRN 08/20/16 [History] ALPRAZolam [Xanax] 0.25 mg PO Q8HR PRN 01/30/17 [History] Docusate [Colace] 100 mg PO BID 01/30/17 [History] Biotin 5 mg PO BID 06/03/17 [History] DULoxetine HCL [Cymbalta] 60 mg PO DAILY 06/03/17 [History] Folic Acid 0.8 mg PO BID 06/03/17 [History] Furosemide [Lasix] 20 mg PO 1600 06/03/17 [History] Furosemide [Lasix] 40 mg PO QAM 06/03/17 [History] Lidocaine 5% Patch [Lidoderm] 2 patch TOPICAL DAILY 06/03/17 [History] Magnesium Oxide [Magox 400] 400 mg PO BID 06/03/17 [History] Multivitamin [Multivitamins Adult Gummies] 2 each PO DAILY 06/03/17 [History] Oxybutynin Chloride 5 mg PO QID 06/03/17 [History] diphenhydrAMINE [Benadryl] 25 mg PO TID PRN 06/03/17 [History] oxyCODONE-APAP 10-325MG [Percocet 10-325 mg] 1 tab PO Q8HR PRN 06/03/17 [History ] ARIPiprazole [Abilify] 20 mg PO DAILY 05/26/18 [History] Acarbose [Precose] 25 mg PO TID 05/26/18 [History] Baclofen 10 mg PO BID 05/26/18 [History] Cyanocobalamin (Vitamin B-12) [Vitamin B12] 5,000 mcg PO DAILY 05/26/18 [History ] Diclofenac Epolamine [Flector 1.3% Patch] 1 patch TRANSDERM Q12HR 05/26/18 [ History] Diclofenac Sodium Gel [Voltaren Gel] 2 gm TOPICAL QID 05/26/18 [History] Gabapentin [Neurontin] 300 mg PO BID 05/26/18 [History] Gabapentin [Neurontin] 600 mg PO HS 05/26/18 [History] L.acidoph,Paracasei, B.lactis [Probiotic] 2 each PO DAILY 05/26/18 [History] Levothyroxine Sodium [Synthroid] 75 mcg PO MANCILLA 05/26/18 [History] Naloxegol Oxalate [Movantik] 25 mg PO DAILY 05/26/18 [History] Nitrofurantoin Monohyd/M-Cryst [Macrobid] 100 mg PO QAM 05/26/18 [History] Omeprazole [PriLOSEC] 40 mg PO DAILY 05/26/18 [History] Solu Cortef 1 dose IM ONCE PRN 05/26/18 [History] Thiamine [Vitamin B-1] 100 mg PO DAILY 05/26/18 [History] Zinc 50 mg PO DAILY 05/26/18 [History] amLODIPine BESYLATE [Norvasc] 5 mg PO DAILY 05/26/18 [History] fentaNYL [Duragesic 12MCG/HR] 12 mcg TRANSDERM Q72H 05/26/18 [History]
[2018-05-27 10:43] VITALS: BP 114/76; PULSE 64
== END 2018-05-27 11:07 | disposition home or self-care (01) ==
LOC: ORWHC2ENDO 08:17
PROVIDERS: ATTEND Surgery Plastic and Reconstructive Surgery
DX: K22.2 Esophageal obstruction (principal); R19.7 Diarrhea, unspecified; K64.0 First degree hemorrhoids; R19.4 Change in bowel habit; K21.9 Gastro-esophageal reflux disease without esophagitis; E07.9 Disorder of thyroid, unspecified; F32.9 Major depressive disorder, single episode, unspecified; F41.9 Anxiety disorder, unspecified; G35 Multiple sclerosis; I10 Essential (primary) hypertension; I73.00 Raynaud's syndrome without gangrene; M19.90 Unspecified osteoarthritis, unspecified site; M79.7 Fibromyalgia; M81.0 Age-related osteoporosis without current pathological fracture; R53.82 Chronic fatigue, unspecified; Z86.718 Personal history of other venous thrombosis and embolism; Z88.0 Allergy status to penicillin; Z88.5 Allergy status to narcotic agent; Z88.6 Allergy status to analgesic agent; Z96.643 Presence of artificial hip joint, bilateral; Z98.84 Bariatric surgery status; Z90.49 Acquired absence of other specified parts of digestive tract; Z96.652 Presence of left artificial knee joint; Z79.890 Hormone replacement therapy; Z79.51 Long term (current) use of inhaled steroids; Z79.899 Other long term (current) drug therapy; Z79.891 Long term (current) use of opiate analgesic; Z88.1 Allergy status to other antibiotic agents; Z88.2 Allergy status to sulfonamides; Z88.8 Allergy status to other drugs, medicaments and biological substances; Z80.0 Family history of malignant neoplasm of digestive organs
CPT/HCPCS: 88305; 45380; 43249; J2704; C1726

== ENCOUNTER → 2018-06-10 | Outpatient (CLI) | payer MEDICARE, OTHER ==
--- NOTE | 2018-06-10 14:22 | P.PN ---
Subjective Progress Note Date: 06/10/18 DATE OF SERVICE: 06/10/2018 CHIEF COMPLAINT: Abdominal pain HISTORY OF PRESENT ILLNESS: Mouna Jones is a 67-year-old female with multiple bariatric procedures. She had a revision of Juan Ramon-en-Y gastric bypass in 2013 at an outside institution. She is 4 years out from her last bariatric procedure. She has severe weight loss. She has lost almost 20 pounds. In 4 months, she went from 101 to 88 pounds. She is very weak. She is suffering the loss of her and has severe depression. Her highest weight is 190 pounds. For her height of 5 feet, her ideal body weight is 127 pounds. Today she comes in weighing 88 pounds from 101 pounds, 4 months ago. She has lost 13 pounds in 4 months. Her total weight loss is 102 pounds. She has achieved 162% excess weight loss. Body mass index is reduced from 36.9 down to 17.0 PAST MEDICAL HISTORY: 1. Morbid obesity, initial BMI 36.9 2. Osteoporosis. 3. Gastroesophageal reflux disease. 4. Osteoarthritis. 5. Hypertension. 6. Fibromyalgia. 7. Spinal stenosis. 8. Dyslipidemia. 9. Multiple sclerosis PAST SURGICAL HISTORY: 1. Lap band and gastroplasty reversed. 2. Tonsillectomy. 3. Adenoidectomy. 4. Cholecystectomy. 5. Left tear duct repair. 6. . 7. Left foot surgery. 8. Renal surgery. 9. Right foot fracture. 10. Left hand surgery. 11. Right hand surgery. 12. EGD. 13. Colonoscopy. 14. Juan Ramon-en- Y gastric bypass done open. 15. Upper endoscopy with balloon dilatation. MEDICATIONS: 1. Forteo. 2. Biotin. 3. Zofran. 4. Pamelor. 5. Multivitamin. 6. Singulair. 7. Midodrine. 8. Claritin. 9. Synthroid. 10. Avonex. 11. Motrin. 12. Solu-Cortef. 13. Osteo Bi-Flex. 14. Neurontin. 15. Lasix. 16. Folic acid. 17. Vitamin D. 18. Baclofen. 19. Aspirin. 20. [place]. ALLERGIES: 1. AMOXICILLIN. 2. CIPROFLOXACIN. 3. BIAXIN. 4. DOLOBID. 5. CAFERGOT. 6. REGLAN. 7. FLAGYL. 8. CARAFATE. 9. BACTRIM. 10. ASPIRIN. 11. AUGMENTIN. 12. DIFLUSNISOL. 13. IV TYLENOL. 14. ORAL MORPHINE. SOCIAL HISTORY: No current tobacco use. History of occasional alcohol use. FAMILY HISTORY: Significant for morbid obesity including breast cancer, colon cancer and stomach cancer. REVIEW OF SYSTEMS: HEENT: Denies any active troubles with vision or hearing. GASTROINTESTINAL: History of gluten and soy milk allergy. Has dumping syndrome with her allergies. MUSCULOSKELETAL: Has diffuse osteoarthritis including multiple previous fractures. CONSTITUTIONAL: Her highest weight is 190 pounds. For her height of 5 feet, her ideal body weight is 127 pounds. RHEUMATOLOGIC: New diagnosis of multiple sclerosis causing lupus. ENDOCRINE: Has hypoglycemia. Also has thyroid disorder. CARDIOVASCULAR: No recent chest pain or heart attacks. GENITOURINARY: Denies increasing urinary frequency or blood in urine. NEUROLOGIC: History of headaches, including tingling of the distal extremities. PSYCH: No reports or suicidal ideation. HEMATOLOGIC: Denies any abnormal bleeding or bruising. SKIN: No skin cancer or rash. PHYSICAL EXAM: VITAL SIGNS: 5 feet and 1/4 inch, 88 pounds. Body mass index 17.0 Vital Signs Temp 97.8 F 06/10/18 14:58 Pulse 103 H 06/10/18 14:58 Resp BP 98/68 06/10/18 14:58 Pulse Ox ABDOMEN: Soft, without palpable incisional hernias. Epigastric tenderness. GENERAL: Well-developed female in no acute distress. HEENT: No scleral icterus. Extraocular movements are grossly intact. CHEST: Nonlabored respirations. Equal bilateral excursions. CARDIOVASCULAR: Tachycardic. 2+ radial pulses. MUSCULOSKELETAL: No clubbing or cyanosis. NEURO: No focal or lateralizing signs. Cranial nerves II to XII grossly intact. PSYCH: Appropriate affect. Alert and oriented to person, place, and time. SKIN: Well perfused. Good skin turgor. NECK: No JV distention. No lymphadenopathy. STUDIES: EGD FINDINGS: Distal esophageal stricture of approximately 15 mm encountered. No chronic gastrojejunal ulceration encountered. Successful balloon dilatation to 20 mm. PATHOLOGY: Final Pathologic Diagnosis COLON, RANDOM BIOPSY: Benign colonic mucosa without histopathologic changes. ASSESSMENT: 1. History of Juan Ramon-en-Y gastric bypass with multiple revision 2. Body mass index reduced from 36.9 down to 17.0 3. Adrenal insufficiency. 4. Personal history of multiple sclerosis. 5. Epigastric abdominal pain 6. Previous history gastrojejunal stricture 7. Dysphagia 8. Family history of colon cancer 9. Underweight 10. Diarrhea. PLAN: 1. Recommend esophogram. 2. Recommend bariatric labs 3. Recommend iron infusion. 4. Recommed pyschology suppor for grief counseling and eating disorder.
[2018-06-10 15:00] VITALS: BP 98/68; PULSE 103; TEMP 97.8; BMI 17.0
== END | disposition home or self-care (01) ==
LOC: BARWHC3 13:01
PROVIDERS: ATTEND Surgery Plastic and Reconstructive Surgery
DX: Z48.815 Encounter for surgical aftercare following surgery on the digestive system (principal); R63.6 Underweight; E27.40 Unspecified adrenocortical insufficiency; R13.10 Dysphagia, unspecified; R19.7 Diarrhea, unspecified; I10 Essential (primary) hypertension; E78.5 Hyperlipidemia, unspecified; G35 Multiple sclerosis; Z68.1 Body mass index [BMI] 19.9 or less, adult; Z87.19 Personal history of other diseases of the digestive system; Z80.0 Family history of malignant neoplasm of digestive organs; Z98.84 Bariatric surgery status; Z90.49 Acquired absence of other specified parts of digestive tract; Z79.899 Other long term (current) drug therapy; Z79.82 Long term (current) use of aspirin; Z88.0 Allergy status to penicillin; Z88.1 Allergy status to other antibiotic agents; Z88.2 Allergy status to sulfonamides; Z88.5 Allergy status to narcotic agent; Z88.6 Allergy status to analgesic agent; Z88.8 Allergy status to other drugs, medicaments and biological substances
CPT/HCPCS: 99211

== ENCOUNTER → 2018-06-19 | Outpatient (CLI) | payer MEDICARE, OTHER ==
--- NOTE | 2018-06-19 11:47 | FL ---
EXAMINATION TYPE: FL barium swallow DATE OF EXAM: 06/19/2018 COMPARISON: None HISTORY: Dysphasia TECHNIQUE: A double air contrast UGI study is performed. FINDINGS: The esophagus is patulous. There is narrowing at the gastroesophageal junction. However, this opens t o normal caliber with real-time observation. No extravasation is evident. By patient related history, recent EGD had dilatation. No suspicious intraluminal or extramural defects are evident. There may be some mild calcification of the bronchial rich. No aspiration or bronchoesophageal fistu la is evident. In the horizontal drinking position there is incomplete stripping of the esophageal bolus. This appea rs to terminate approximately the thoracic inlet. Tertiary contractions were evident. IMPRESSIONS: 1. Patulous esophagus. The gastroesophageal junction passes contrast without hesitancy. 2. Presbyesophagus.
== END | disposition home or self-care (01) ==
LOC: RADFLWHC 10:41
PROVIDERS: ATTEND Surgery Plastic and Reconstructive Surgery
DX: K22.8 Other specified diseases of esophagus (principal)
CPT/HCPCS: 74220

== ENCOUNTER → 2018-06-19 | Outpatient (CLI) | payer MEDICARE, OTHER ==
[2018-06-19 12:33] LABS: HGB 12.9 gm/dL (11.4-16.0); MCH 29.7 pg (25.0-35.0); MCHC 32.2 g/dL (31.0-37.0); MCV 92.2 fL (80.0-100.0); Mean Platelet Volume 6.7; Platelet Count 674 k/uL (150-450); RBC 4.34 m/uL (3.80-5.40); WBC 16.4 k/uL (3.8-10.6)
[2018-06-19 12:48] LABS: INR 0.8 (<1.2); Prothrombin Time 9.3 sec (9.0-12.0)
[2018-06-19 14:36] LABS: Albumin 3.8 g/dL (3.5-5.0); Anion Gap 10 mmol/L; Blood Urea Nitrogen 13 mg/dL (7-17); Calcium 9.1 mg/dL (8.4-10.2); Carbon Dioxide 36 mmol/L (22-30); Chloride 85 mmol/L (98-107); Cholesterol 160 mg/dL (<200); Glucose 90 mg/dL (74-99); HDL Cholesterol 73 mg/dL (40-60); LDL Cholesterol,Calculated 58 mg/dL (0-99); Sodium 131 mmol/L (137-145); Total Bilirubin 0.9 mg/dL (0.2-1.3); Total Protein 7.2 g/dL (6.3-8.2); Triglycerides 143 mg/dL (<150)
[2018-06-19 14:39] LABS: ALT 34 U/L (9-52); AST 51 U/L (14-36); Alkaline Phosphatase 203 U/L (38-126); Magnesium 2.3 mg/dL (1.6-2.3); Phosphorus 3.8 mg/dL (2.5-4.5); Potassium 3.6 mmol/L (3.5-5.1)
[2018-06-19 19:03] LABS: Vitamin D 25 Hydroxy 85.2 ng/mL (30.0-100.0)
[2018-06-19 19:05] LABS: Folate, Serum >24.0 ng/mL; Iron Saturation 6.78 (12.00-45.00)
[2018-06-19 19:07] LABS: Parathyroid Hormone Intact 97.7 pg/mL (14.0-72.0)
[2018-06-19 19:51] LABS: Vitamin B12 >2000.0 pg/mL (200.0-944.0)
[2018-06-19 20:33] LABS: Hemoglobin A1C 5.1 % (4.0-6.0)
== END ==
LOC: LABPAT 11:29
PROVIDERS: ATTEND Surgery Plastic and Reconstructive Surgery
DX: E66.01 Morbid (severe) obesity due to excess calories (principal); E21.1 Secondary hyperparathyroidism, not elsewhere classified; D50.9 Iron deficiency anemia, unspecified; K90.9 Intestinal malabsorption, unspecified; E44.0 Moderate protein-calorie malnutrition; E55.9 Vitamin D deficiency, unspecified; K74.1 Hepatic sclerosis; N19 Unspecified kidney failure; K50.90 Crohn's disease, unspecified, without complications
CPT/HCPCS: 80053; 80061; 82306; 82525; 82607; 82728; 82746; 83036; 83540; 83550; 83735; 83970; 84100; 84134; 84255; 84425; 84443; 84590; 84630; 85027; 85610; 85730

== ENCOUNTER → 2018-08-22 | Outpatient (CLI) | payer MEDICARE, OTHER ==
--- NOTE | 2018-08-22 12:41 | MR ---
EXAMINATION TYPE: MR knee RT wo con DATE OF EXAM: 08/22/2018 COMPARISON: NONE HISTORY: Pain in right knee per order. Pain locking and swelling for over one year per patient. TECHNIQUE: Multiplanar, multisequence images of the knee is performed without IV contrast. FINDINGS: Exam noted suboptimal secondary to patient's large body habitus. MEDIAL MENISCUS: Anterior and posterior horns are intact without tear. LATERAL MENISCUS: Anterior and posterior horns are intact without tear. CRUCIATE LIGAMENTS: The anterior and posterior cruciate ligaments are intact and unremarkable. COLLATERAL LIGAMENTS: The medial collateral ligament and lateral collateral ligament complex are inta ct and unremarkable. EXTENSOR MECHANISM: Visualized quadriceps and patellar tendons are intact. There is edematous change involving Hoffa's fat pad fairly diffusely. EFFUSION: There is small suprapatellar joint effusion. POPLITEAL CYST: There are small to moderate-sized popliteal/dugan cyst measuring 4.4 cm long axis sag ittal image 9. TRICOMPARTMENT SPACES: There is mild to moderate tricompartment joint space loss with mild spurring. CARTILAGE: There is significant cartilage patella with full-thickness cartilaginous loss along hardware trainer ior patellar pole more prominent superior to mid aspect. BONE MARROW SIGNAL: Heterogeneity consistent with red marrow reconversion is present. Small subchondr al cystic change posterior patellar pole is noted. OTHER: Moderate to severe posterior diffuse subcutaneous edema is noted. IMPRESSION: 1. No meniscal or ligamentous tear is seen. 2. Mild to moderate tricompartment degenerative changes with full-thickness chondromalacia patella no dada. 3. Correlate for underlying fat impingement syndrome as there is marked edematous change involving Ho ffa's fat pad. 4. Small to moderate-sized popliteal cyst.
== END | disposition home or self-care (01) ==
LOC: RADMRIMAIN 10:17
PROVIDERS: ATTEND Orthopaedic Surgery
DX: M17.11 Unilateral primary osteoarthritis, right knee (principal); M22.41 Chondromalacia patellae, right knee; M79.4 Hypertrophy of (infrapatellar) fat pad; M71.21 Synovial cyst of popliteal space [Baker], right knee

== ENCOUNTER → 2018-11-25 | Outpatient (CLI) | payer MEDICARE, OTHER ==
--- NOTE | 2018-11-25 11:48 | BD ---
EXAMINATION TYPE: Axial Bone Density DATE OF EXAM: 11/25/2018 COMPARISON: 2017 CLINICAL HISTORY: osteoporosis Height: 4'11 4 Weight: 100 FRAX RISK QUESTIONS: Glucocorticoids (More than 3mos): y (Ex: prednisone, prednisolone, methylprednisolone, dexamethasone, and hydrocortisone). History of Fracture in Adulthood: y Secondary Osteoporosis: 4. Malnutrition: y RISK FACTORS HISTORY OF: Surgery to Spine/Hip(right/left)/: [place] total hips, lumbar sp back surgery, left wrist hardware When: since Family History of Osteoporosis: y Active: n Postmenopausal woman: y Frequent falls: y Adrenal Insufficiency: y MEDICATIONS: Prednisone or other steroids: y How Long: off and on10 years Thyroid Medications: Which medication: Synthroid How Lon years Osteoporosis Medications: Which medication: infusion 1 x a year How Lon years Additional Medications: low blood sugar, malabsorption, pain, Additional History: EXAM MEASUREMENTS: Bone mineral densitometry was performed using the Senic System. Bone mineral density about the R Wrist (g/cm2): 0.296 T Score values are as follows: -----Dist. R+U: -5.0 -----Prox. R+U: -5.4 -----Radius total: -6.3 Bone mineral density has: Increased 3.6% since study of: 05/08/2017 IMPRESSION: Osteoporosis (T Score less than -2.5). There is increased fracture risk and therapy is usually indicated based on age. Re-Screen 1-2 years. NOTE: T-SCORE=SD OF THE YOUNG ADULT MEAN.
== END | disposition home or self-care (01) ==
LOC: RADBDWWP 10:09
PROVIDERS: ATTEND Pediatrics Adolescent Medicine
DX: M81.0 Age-related osteoporosis without current pathological fracture (principal)
CPT/HCPCS: 77080

== ENCOUNTER → 2018-12-17 | Outpatient (CLI) | payer MEDICARE, OTHER ==
[2018-12-17 11:29] LABS: Basophils % (A) 0 %; Eosinophils # (A) 0.1 k/uL (0-0.7); Eosinophils % (A) 1 %; HCT 39.3 % (34.0-46.0); HGB 11.9 gm/dL (11.4-16.0); Lymphocytes # (A) 1.5 k/uL (1.0-4.8); Lymphocytes % (A) 14 %; MCH 29.7 pg (25.0-35.0); MCHC 30.3 g/dL (31.0-37.0); MCV 97.9 fL (80.0-100.0); Mean Platelet Volume 6.2; Monocytes # (A) 0.5 k/uL (0-1.0); Monocytes % (A) 5 %; Neutrophils # (A) 8.3 k/uL (1.3-7.7); Neutrophils % (A) 80 %; Platelet Count 463 k/uL (150-450); RBC 4.02 m/uL (3.80-5.40); RDW 13.8 % (11.5-15.5); WBC 10.5 k/uL (3.8-10.6)
[2018-12-17 16:08] LABS: Parathyroid Hormone Intact 88.4 pg/mL (14.0-72.0)
[2018-12-17 16:32] LABS: Iron Saturation 16.12 (12.00-45.00)
[2018-12-17 16:40] LABS: Vitamin D 25 Hydroxy 61.6 ng/mL (30.0-100.0)
[2018-12-17 16:44] LABS: African American GFR (CKD) 116.1 (60.0-200.0); Albumin 4.2 g/dL (3.80-4.90); Anion Gap 11.2 mmol/L (4.00-12.00); Calcium 9.2 mg/dL (8.7-10.3); Carbon Dioxide 32.8 mmol/L (21.6-31.8); Phosphorus 3.1 mg/dL (2.4-5.1); Potassium 3.4 mmol/L (3.5-5.5); Uric Acid 5.1 mg/dL (2.9-7.7)
== END | disposition home or self-care (01) ==
LOC: LABWHC1 10:37
PROVIDERS: ATTEND Internal Medicine Nephrology
DX: E78.1 Pure hyperglyceridemia (principal); E55.9 Vitamin D deficiency, unspecified; N25.81 Secondary hyperparathyroidism of renal origin; D64.9 Anemia, unspecified; M10.9 Gout, unspecified; N39.0 Urinary tract infection, site not specified
CPT/HCPCS: 36415; 80048; 82040; 82306; 82728; 83540; 83550; 83735; 83970; 84100; 84550; 85025

== ENCOUNTER → 2019-04-14 | Outpatient (CLI) | payer MEDICARE, OTHER ==
[2019-04-14 12:41] LABS: HCT 42.4 % (34.0-46.0); HGB 13.4 gm/dL (11.4-16.0); MCH 30.9 pg (25.0-35.0); MCHC 31.6 g/dL (31.0-37.0); MCV 97.9 fL (80.0-100.0); Mean Platelet Volume 5.7; Platelet Count 458 k/uL (150-450); RBC 4.33 m/uL (3.80-5.40); RDW 12.7 % (11.5-15.5); WBC 9.3 k/uL (3.8-10.6)
[2019-04-14 12:46] LABS: INR 0.8 (<1.2); Partial Thromboplastin Time 26.2 sec (22.0-30.0); Prothrombin Time 9.3 sec (9.0-12.0)
[2019-04-14 19:09] LABS: % Iron Saturation 15.25 (12.00-45.00); ALT 26 U/L (8-44); AST 43 U/L (13-35); African American GFR (CKD) 109.3 (60.0-200.0); Alkaline Phosphatase 131 U/L (41-126); BUN/Creat Ratio 23.33 Ratio (12.00-20.00); Calcium 9.3 mg/dL (8.7-10.3); Chloride 87 mmol/L (96-109); Chol/HDL Ratio 2.69; Cholesterol 210 mg/dL (0-200); Folate, Serum >24.0 ng/mL; Glucose 80 mg/dL (70-110); Iron 34 ug/dL (50-170); Magnesium 2.1 mg/dL (1.5-2.4); Phosphorus 3.4 mg/dL (2.4-5.1); Potassium 3.8 mmol/L (3.5-5.5); Sodium 133 mmol/L (135-145); Total Bilirubin 0.5 mg/dL (0.3-1.2); Total Iron Binding Capacity 223 ug/dL (228-460); Total Protein 6.2 g/dL (6.2-8.2)
[2019-04-14 22:34] LABS: Hemoglobin A1C 4.7 % (4.0-6.0)
[2019-04-15 13:09] LABS: Zinc, Serum 129 ug/dL (60-130)
[2019-04-15 14:22] LABS: Vit B1(Thiamine) 34 ug/L (38-122)
[2019-04-16 06:45] LABS: Vitamin A 53 ug/dL (38-106)
== END | disposition home or self-care (01) ==
LOC: LABWHC1 11:30
PROVIDERS: ATTEND Surgery Plastic and Reconstructive Surgery
DX: E21.1 Secondary hyperparathyroidism, not elsewhere classified (principal); D50.9 Iron deficiency anemia, unspecified; E44.0 Moderate protein-calorie malnutrition; E55.9 Vitamin D deficiency, unspecified; N19 Unspecified kidney failure; K50.90 Crohn's disease, unspecified, without complications
CPT/HCPCS: 36415; 80053; 80061; 82306; 82525; 82607; 82728; 82746; 83036; 83540; 83550; 83735; 83970; 84100; 84134; 84255; 84425; 84443; 84590; 84630; 85027; 85610; 85730

== ENCOUNTER → 2019-04-24 | Outpatient (CLI) | payer MEDICARE, OTHER ==
--- NOTE | 2019-04-24 20:18 | MR ---
EXAMINATION TYPE: MR cervical spine wo con DATE OF EXAM: 04/24/2019 COMPARISON: August 22, 2016 HISTORY: Arthrodesis status / Cervicalgia TECHNIQUE: Multiplanar, multisequence images of the cervical spine were acquired. There is extensive metal artifact related to anterior fusion surgery from C4 to T1. There is metal ar tifact from multilevel posterior fusion surgery from C4 to C7. Cervical spinal cord shows no edema. T here is posterior osteophyte formation at C4-5 encroaching 2 a mild degree on the spinal canal. The c anal is narrowed to 7.7 mm. The brainstem is intact. I see no focal bone destruction. There is no diana dence of cervical paraspinal mass. IMPRESSION: Anterior and posterior fusion surgery. No significant spinal stenosis. No fracture. No adverse change compared to old exam.
== END | disposition home or self-care (01) ==
LOC: RADMRIMAIN 09:11
PROVIDERS: ATTEND Orthopaedic Surgery
DX: M54.2 Cervicalgia (principal); Z98.1 Arthrodesis status
CPT/HCPCS: 72141

== ENCOUNTER → 2019-04-24 | Outpatient (CLI) | payer MEDICARE, OTHER ==
[2019-04-24 11:18] LABS: Basophils # (A) 0.1 k/uL (0-0.2); Basophils % (A) 1 %; Eosinophils % (A) 0 %; HCT 37.9 % (34.0-46.0); HGB 12.3 gm/dL (11.4-16.0); Lymphocytes # (A) 1.5 k/uL (1.0-4.8); Lymphocytes % (A) 19 %; MCHC 32.4 g/dL (31.0-37.0); MCV 95.7 fL (80.0-100.0); Mean Platelet Volume 6.3; Monocytes # (A) 0.4 k/uL (0-1.0); Monocytes % (A) 5 %; Neutrophils # (A) 5.5 k/uL (1.3-7.7); Neutrophils % (A) 72 %; Platelet Count 521 k/uL (150-450); RBC 3.96 m/uL (3.80-5.40); RDW 12.9 % (11.5-15.5); WBC 7.6 k/uL (3.8-10.6)
[2019-04-24 12:36] LABS: Erythrocyte Sedimentation Rate 50 mm/hr (0-20)
[2019-04-24 18:01] LABS: African American GFR (CKD) 109.3 (60.0-200.0); BUN/Creat Ratio 28.33 Ratio (12.00-20.00); C Reactive Protein <0.4 mg/dL (0.0-0.8); Calcium 9.3 mg/dL (8.7-10.3); Carbon Dioxide 33.3 mmol/L (21.6-31.8); Chloride 85 mmol/L (96-109); Glucose 84 mg/dL (70-110); Potassium 3.2 mmol/L (3.5-5.5); Sodium 132 mmol/L (135-145)
== END | disposition home or self-care (01) ==
LOC: LABWHC1 10:31
PROVIDERS: ATTEND Nurse Practitioner Family
DX: M21.70 Unequal limb length (acquired), unspecified site (principal); M70.71 Other bursitis of hip, right hip; E87.1 Hypo-osmolality and hyponatremia; Z47.1 Aftercare following joint replacement surgery; Z96.641 Presence of right artificial hip joint
CPT/HCPCS: 36415; 80048; 85025; 85652; 86140

== ENCOUNTER → 2019-07-07 | Outpatient (CLI) | payer MEDICARE, OTHER ==
[2019-07-07 16:35] LABS: African American GFR (CKD) 103.9 (60.0-200.0); Anion Gap 13.6 mmol/L (4.00-12.00); BUN/Creat Ratio 25.71 Ratio (12.00-20.00); Calcium 9.7 mg/dL (8.7-10.3); Carbon Dioxide 27.4 mmol/L (21.6-31.8); Non-African American GFR(CKD) 89.7 (60.0-200.0); Potassium 4.9 mmol/L (3.5-5.5)
== END | disposition home or self-care (01) ==
LOC: LABWHC1 10:43
PROVIDERS: ATTEND Nurse Practitioner Family
DX: E87.1 Hypo-osmolality and hyponatremia (principal)
CPT/HCPCS: 36415; 80048

== ENCOUNTER → 2019-11-08 | Outpatient (CLI) | payer MEDICARE, OTHER ==
[2019-11-08 11:34] LABS: HCT 34.2 % (34.0-46.0); HGB 10.4 gm/dL (11.4-16.0); Hypochromasia Slight; MCH 29.8 pg (25.0-35.0); MCHC 30.5 g/dL (31.0-37.0); MCV 97.8 fL (80.0-100.0); Mean Platelet Volume 6.5; Platelet Count 467 k/uL (150-450); RDW 13.9 % (11.5-15.5); WBC 8.7 k/uL (3.8-10.6)
[2019-11-08 11:43] LABS: INR 0.9 (<1.2); Prothrombin Time 9.3 sec (9.0-12.0)
[2019-11-08 11:45] LABS: Partial Thromboplastin Time 18.9 sec (22.0-30.0)
[2019-11-08 17:32] LABS: % Iron Saturation 13.08 (12.00-45.00); ALT 24 U/L (8-44); AST 38 U/L (13-35); African American GFR (CKD) 87.8 (60.0-200.0); Albumin/Globulin Ratio 1.64 (1.60-3.17); Alkaline Phosphatase 155 U/L (41-126); Calcium 9.3 mg/dL (8.7-10.3); Carbon Dioxide 29.5 mmol/L (21.6-31.8); Chloride 94 mmol/L (96-109); Chol/HDL Ratio 2.69; Cholesterol 223 mg/dL (0-200); Ferritin 454.6 ng/mL (10.0-291.0); Folate, Serum >24.0 ng/mL; Globulin 2.5 g/dL (1.6-3.3); Glucose 90 mg/dL (70-110); Iron 34 ug/dL (50-170); LDL Cholesterol,Calculated 101.4 mg/dL (0.0-131.0); Non-African American GFR(CKD) 75.8 (60.0-200.0); Potassium 4.2 mmol/L (3.5-5.5); Sodium 138 mmol/L (135-145); Total Bilirubin 0.5 mg/dL (0.3-1.2); Total Iron Binding Capacity 260 ug/dL (228-460); Total Protein 6.6 g/dL (6.2-8.2)
[2019-11-08 19:12] LABS: Hemoglobin A1C 4.6 % (4.0-6.0)
[2019-11-10 06:48] LABS: Vitamin A 59 ug/dL (38-106)
[2019-11-10 07:27] LABS: Vit B1(Thiamine) 127 ug/L (38-122)
== END | disposition home or self-care (01) ==
LOC: LABWHC1 09:17
PROVIDERS: ATTEND Surgery Plastic and Reconstructive Surgery
DX: E21.1 Secondary hyperparathyroidism, not elsewhere classified (principal); E89.1 Postprocedural hypoinsulinemia; D50.9 Iron deficiency anemia, unspecified; K90.9 Intestinal malabsorption, unspecified; E55.9 Vitamin D deficiency, unspecified; K74.1 Hepatic sclerosis; N19 Unspecified kidney failure; K50.90 Crohn's disease, unspecified, without complications; E87.1 Hypo-osmolality and hyponatremia
CPT/HCPCS: 36415; 80053; 80061; 82306; 82525; 82607; 82728; 82746; 83036; 83540; 83550; 83735; 83970; 84100; 84134; 84255; 84425; 84443; 84590; 85027; 85610; 85730

== ENCOUNTER → 2019-11-10 | Outpatient (CLI) | payer MEDICARE, OTHER ==
[2019-11-10 14:18] VITALS: BP 136/86; PULSE 79; RESP 16; TEMP 97.8; BMI 18.8
--- NOTE | 2019-11-10 14:32 | P.PN ---
Subjective Progress Note Date: 11/10/19 DATE OF SERVICE: 11/10/2019 CHIEF COMPLAINT: Status post gastric bypass HISTORY OF PRESENT ILLNESS: Mouna Jones is a 69-year-old female with history of multiple bariatric procedures. She had a revision of Juan Ramon-en-Y gastric bypass in 2013 at an outside institution. She is 6 years out from her last b ariatric procedure. She has history of multiple chronic fractures from falls and had recent orthopedic surgery. She is on Mobic and has history of ulcers. She has fell down again and broke her hip. She has history of chronic pain medication needs. She is not seeing a pain specialist. She comes in today with complaints of dry skin and new dysphagia including troubles with swallowing. Her highest weight is 190 pounds. For her height of 5 feet 0.25 inches, her ideal body weight is 127 pounds. Today she comes in weighing 97 pounds from 88 pounds, 1.5 years ago. She has gained 9 pounds in 1.5 months. Her total weight loss is 93 pounds. She has achieved 147 % excess weight loss. Body mass index is reduced from 36.9 down to 18.9. PAST MEDICAL HISTORY: 1. Morbid obesity, initial BMI 36.9 2. Osteoporosis. 3. Gastroesophageal reflux disease. 4. Osteoarthritis. 5. Hypertension. 6. Fibromyalgia. 7. Spinal stenosis. 8. Dyslipidemia. 9. Multiple sclerosis PAST SURGICAL HISTORY: 1. Lap band and gastroplasty reversed. 2. Tonsillectomy. 3. Adenoidectomy. 4. Cholecystectomy. 5. Left tear duct repair. 6. . 7. Left foot surgery. 8. Renal surgery. 9. Right foot fracture. 10. Left hand surgery. 11. Right hand surgery. 12. EGD. 13. Colonoscopy. 14. Juan Ramon-en- Y gastric bypass done open, 2013 15. Upper endoscopy with balloon dilatation. MEDICATIONS: Home Medications Medication Instructions Recorded Confirmed Cholecalciferol [Vitamin D3 (25 5,000 unit PO BID 11/04/13 07/31/18 Mcg = 1000 Iu)] Loratadine [Claritin] 10 mg PO DAILY 11/04/13 07/31/18 Montelukast [Singulair] 10 mg PO HS 11/04/13 07/31/18 Levothyroxine Sodium [Synthroid] 50 mcg PO MOTUWETHFRSA 02/11/14 07/31/18 Ondansetron HCl [Zofran] 8 mg PO Q8HR PRN 06/29/14 07/31/18 Hydrocortisone [Cortef] 5 mg PO BID 09/28/15 07/31/18 Fluticasone Nasal [place] [Flonase 1 spr EA NOSTRIL BID 08/20/16 07/31/18 Nasal [place]] Glucagon Emergency Kit 1 mg IM ONCE PRN 08/20/16 07/31/18 ALPRAZolam [Xanax] 0.25 mg PO Q8HR PRN 01/30/17 07/31/18 Biotin 5 mg PO BID 06/03/17 07/31/18 DULoxetine HCL [Cymbalta] 60 mg PO DAILY 06/03/17 07/31/18 Folic Acid 0.8 mg PO BID 06/03/17 07/31/18 Furosemide [Lasix] 20 mg PO 1600 06/03/17 07/31/18 Furosemide [Lasix] 40 mg PO QAM 06/03/17 07/31/18 Lidocaine 5% Patch [Lidoderm] 2 patch TOPICAL DAILY 06/03/17 07/31/18 Magnesium Oxide [Magox 400] 400 mg PO BID 06/03/17 07/31/18 Multivitamin [Multivitamins Adult 2 each PO DAILY 06/03/17 07/31/18 Gummies] Oxybutynin Chloride 5 mg PO QID 06/03/17 07/31/18 diphenhydrAMINE [Benadryl] 25 mg PO TID PRN 06/03/17 07/31/18 oxyCODONE-APAP 10-325MG [Percocet 1 tab PO Q8HR PRN 06/03/17 07/31/18 10-325 mg] ARIPiprazole [Abilify] 20 mg PO DAILY 05/26/18 07/31/18 Acarbose [Precose] 25 mg PO TID 05/26/18 07/31/18 Baclofen 10 mg PO BID 05/26/18 07/31/18 Cyanocobalamin (Vitamin B-12) 5,000 mcg PO DAILY 05/26/18 07/31/18 [Vitamin B12] Diclofenac Epolamine [Flector 1.3% 1 patch TRANSDERM Q12HR 05/26/18 07/31/18 Patch] Diclofenac Sodium Gel [Voltaren 2 gm TOPICAL QID 05/26/18 07/31/18 Gel] Gabapentin [Neurontin] 300 mg PO BID 05/26/18 07/31/18 Gabapentin [Neurontin] 600 mg PO HS 05/26/18 07/31/18 L.acidoph,Paracasei, B.lactis 2 each PO DAILY 05/26/18 07/31/18 [Probiotic] Levothyroxine Sodium [Synthroid] 75 mcg PO MANCILLA 05/26/18 07/31/18 Nitrofurantoin Monohyd/M-Cryst 100 mg PO QAM 05/26/18 07/31/18 [Macrobid] Omeprazole [PriLOSEC] 40 mg PO DAILY 05/26/18 07/31/18 Solu Cortef 1 dose IM ONCE PRN 05/26/18 07/31/18 Thiamine [Vitamin B-1] 100 mg PO DAILY 05/26/18 07/31/18 Zinc 50 mg PO DAILY 05/26/18 07/31/18 amLODIPine BESYLATE [Norvasc] 5 mg PO DAILY 05/26/18 07/31/18 Oxybutynin ER [Ditropan Xl] 10 mg PO BID 07/31/18 07/31/18 ALLERGIES: 1. AMOXICILLIN. 2. CIPROFLOXACIN. 3. BIAXIN. 4. DOLOBID. 5. CAFERGOT. 6. REGLAN. 7. FLAGYL. 8. CARAFATE. 9. BACTRIM. 10. ASPIRIN. 11. AUGMENTIN. 12. DIFLUSNISOL. 13. IV TYLENOL. 14. ORAL MORPHINE. SOCIAL HISTORY: No current tobacco use. History of occasional alcohol use. FAMILY HISTORY: Significant for morbid obesity including breast cancer, colon cancer and stomach cancer. REVIEW OF SYSTEMS: HEENT: Denies any active troubles with vision or hearing. GASTROINTESTINAL: History of gluten and soy milk allergy. Has dumping syndrome with her allergies. MUSCULOSKELETAL: Has diffuse osteoarthritis including multiple previous fractures. CONSTITUTIONAL: Her highest weight is 190 pounds. For her height of 5 feet, her ideal body weight is 127 pounds. BMI 36.9 initial. RHEUMATOLOGIC: Has multiple sclerosis including lupus. ENDOCRINE: Has hypoglycemia. Also has thyroid disorder. CARDIOVASCULAR: No recent chest pain or heart attacks. GENITOURINARY: Denies increasing urinary frequency or blood in urine. NEUROLOGIC: No current headaches. Has tingling of the distal extremities. PSYCH: No reports or suicidal ideation. HEMATOLOGIC: Denies any abnormal bleeding or bruising. SKIN: No skin cancer or rash. PHYSICAL EXAM: VITAL SIGNS: 5 feet and 1/4 inch, 97 pounds. Body mass index 18.9 Vital Signs Temp 97.8 F 11/10/19 14:14 Pulse 79 11/10/19 14:14 Resp 16 11/10/19 14:14 BP 136/86 11/10/19 14:14 Pulse Ox ABDOMEN: Soft, without palpable incisional hernias. Epigastric tenderness. GENERAL: Well-developed female in no acute distress. HEENT: No scleral icterus. Extraocular movements are grossly intact. CHEST: Nonlabored respirations. Equal bilateral excursions. CARDIOVASCULAR: Regular rate and rhythm. 2+ radial pulses. MUSCULOSKELETAL: No clubbing or cyanosis. MS: Bruising on bilateral lower legs. 1+ trace edema. NEURO: No focal or lateralizing signs. Cranial nerves II to XII grossly intact. PSYCH: Appropriate affect. Alert and oriented to person, place, and time. SKIN: Well perfused. Good skin turgor. NECK: No JV distention. No lymphadenopathy. STUDIES: Barium swallow independently reviewed demonstrating presbyesophagus including tertiary contractions. No evidence of obstruction. Multiple hardware along the neck identified. LABS: Reviewed from past visits with WBC elevated at 16.8, Platelets were elevated 674, Sodium low 131, Chloride low 85, Iron low, Vitamin A is low, Pre- albumin is low, PTH is elevated, Zinc is elevated ASSESSMENT: 1. History of Juan Ramon-en-Y gastric bypass with multiple revision 2. Body mass index reduced from 36.9 down to 18.9 3. Adrenal insufficiency. 4. Personal history of multiple sclerosis. 5. Dysphagia 6. Underweight 7. History of gastric ulcers PLAN: 1. Recommend esophogram for history of dysphagia 2. Recommend upper endoscopy with dilation for presbyesophagus 3. Stop Mobic for history of gastric ulcers. 4. Medications were reviewed for medical reconciliation. 5. Her dry skin is consistent with low Copper and will need supplement. 6. Recommend bariatric labs . 7. Recommend high calorie foods/shakes to address underweight. 8. Given list of medications, recommend avoid tumeric that increases risk for bleeding. 9. She is elevated risk for complications from endoscopy with dilation for history of recurrent ulcers. Objective - Vital Signs Vital signs: Vital Signs Temp 97.8 F 11/10/19 14:14 Pulse 79 11/10/19 14:14 Resp 16 11/10/19 14:14 BP 136/86 11/10/19 14:14 Pulse Ox Intake & Output 11/09/19 11/10/19 11/10/19 18:59 06:59 18:59 Weight 44.18 kg
== END | disposition home or self-care (01) ==
LOC: BARWHC3 13:38
PROVIDERS: ATTEND Surgery Plastic and Reconstructive Surgery
DX: Z48.815 Encounter for surgical aftercare following surgery on the digestive system (principal); K22.8 Other specified diseases of esophagus; E27.40 Unspecified adrenocortical insufficiency; R13.10 Dysphagia, unspecified; I10 Essential (primary) hypertension; R63.6 Underweight; G35 Multiple sclerosis; M79.7 Fibromyalgia; M19.90 Unspecified osteoarthritis, unspecified site; M81.0 Age-related osteoporosis without current pathological fracture; Z68.1 Body mass index [BMI] 19.9 or less, adult; Z87.19 Personal history of other diseases of the digestive system; Z86.69 Personal history of other diseases of the nervous system and sense organs; Z98.84 Bariatric surgery status; Z83.49 Family history of other endocrine, nutritional and metabolic diseases; Z79.51 Long term (current) use of inhaled steroids; Z79.891 Long term (current) use of opiate analgesic; Z79.1 Long term (current) use of non-steroidal anti-inflammatories (NSAID); Z79.52 Long term (current) use of systemic steroids; Z79.899 Other long term (current) drug therapy; Z88.1 Allergy status to other antibiotic agents; Z88.6 Allergy status to analgesic agent; Z79.890 Hormone replacement therapy; Z88.5 Allergy status to narcotic agent; Z88.8 Allergy status to other drugs, medicaments and biological substances
CPT/HCPCS: 99211

== ENCOUNTER → 2019-11-25 | Outpatient (CLI) | payer MEDICARE, OTHER ==
--- NOTE | 2019-11-25 10:39 | FL ---
EXAMINATION TYPE: FL barium swallow DATE OF EXAM: 11/25/2019 CLINICAL HISTORY: History of Juan Ramon-en-Y surgery 5 years ago with prior stricture and subsequent dilata tion of the Juan Ramon-en-Y. No recent endoscopy (last endoscopy was greater than 2 years ago). Current dys phagia and reflux. TECHNIQUE: A double contrast esophagram is performed utilizing air and barium. A total of 1.4 minut es of fluoroscopic time was utilized during procedure. 37 fluoroscopic images saved on the [employer] n COMPARISON: 06/11/2018 FINDINGS: The esophagus shows abnormal motility with markedly abnormal irregularity of the entirety o f the esophageal mucosal lining. A moderate hiatal hernia seen with a distal esophageal diverticulum. There is marked delay in propulsion of contrast through the esophagus with contrast seen in the uppe r esophagus at 5 minutes. Other small diverticula are seen of the distal remaining portion of the sto mach. There is a high-grade stricture at the anastomotic site of the stomach with the proximal small bowel. Absent peristalsis is seen throughout the examination in the esophagus despite residuals. IMPRESSION: 1. High-grade recurrent stricture at the gastroenteric junction of the Juan Ramon-en-Y, previously dilated due to stricture formation. 2. Markedly delayed propulsion of contrast through the esophagus with contrast stasis in the proximal esophagus after 5 minutes. Aspiration precautions recommended. 3. Moderate hiatal hernia with multiple small gastric diverticula. 4. Extreme irregularity of the entirety of esophageal mucosa that may represent severe esophagitis or neoplasm. Endoscopy recommended for which the patient states she is already scheduled.
== END | disposition home or self-care (01) ==
LOC: RADUSWWP 08:55
PROVIDERS: ATTEND Surgery Plastic and Reconstructive Surgery
DX: R13.10 Dysphagia, unspecified (principal); K44.9 Diaphragmatic hernia without obstruction or gangrene; K31.4 Gastric diverticulum; Z98.890 Other specified postprocedural states
CPT/HCPCS: 74220

== ENCOUNTER 2019-12-02 07:05 | Day surgery (SDC) | payer MEDICARE, OTHER ==
[2019-11-30 09:17] VITALS: BMI 18.0
--- NOTE | 2019-12-01 21:27 | P.GSHP ---
History of Present Illness H&P Date: 12/02/19 CHIEF COMPLAINT: GERD HISTORY OF PRESENT ILLNESS: The patient is a 69-year-old female who presents reports gastroesophageal reflux disease. Upper endoscopy was offered for further evaluation and management. PAST MEDICAL HISTORY: Please see list. PAST SURGICAL HISTORY: Please see list. MEDICATIONS: Please see list. ALLERGIES: Please see list. SOCIAL HISTORY: No illicit drug use FAMILY HISTORY: No reports of Crohn disease or ulcerative colitis. REVIEW OF ORGAN SYSTEMS: CONSTITUTIONAL: No reports of fevers or chills. GI: Denies any blood in stools or constipation. PHYSICAL EXAM: VITAL SIGNS: Stable GENERAL: Well-developed and pleasant in no acute distress. HEENT: No scleral icterus. Extraocular movements grossly intact. Moist buccal mucosa. NECK: Supple without lymphadenopathy. CHEST: Unlabored respirations. Equal bilateral excursions. CARDIOVASCULAR: Regular rate and rhythm. Distal 2+ pulses. ABDOMEN: Soft, nondistended. MUSCULOSKELETAL: No clubbing, cyanosis, or edema. ASSESSMENT: 1. Gastroesophageal reflux disease PLAN: 1. Recommend proceeding with an upper endoscopy Past Medical History Past Medical History: Blood Disorder, Deep Vein Thrombosis (DVT), Fibromyalgia, GERD/Reflux, Hypertension, Osteoarthritis (OA), Respiratory Disorder, Thyroid Disorder Additional Past Medical History / Comment(s): Multiple Sclerosis, Adrenal Insufficiency & Pituitary Imbalance. Vasopressor Syncope. Leiden Factor V. Iron Deficient Anemia, hypoglycema. Chronic nausea, UTI'S, Varicose veins. Osteoporosis, Raynauds, Insomnia, Chronic fatigue, Mariano Castillo, Environmental allergies. Chronic back pain, Hx of falls, Incontinent of urine, wears briefs. Difficulty swallowing, bloating, Uses cane. History of Any Multi-Drug Resistant Organisms: None Reported Past Surgical History: Adenoidectomy, Back Surgery, Bariatric Surgery, Section, Cholecystectomy, Hernia Repair, Joint Replacement, Orthopedic Surgery, Tonsillectomy Additional Past Surgical History / Comment(s): Original Stomach Stapling by Dr Glynn, Redo by Dr Petersen w/ "3/4" stomach removed. Quincy feet, quincy hand surg-mult, Neck & Back surg x2, Rt Rotator Cuff, Lt hip & knee replacements. Lt eye tear duct surg. Nasal surg. C-S x2. Hernia repair x2 w/ excess skin removed. screw lt foot/exc neuroma, 2 screws lt hand thumb, Rt hip replacement X6 - last 07/2019 w/ [facility] Rt femur spiral Fx w/ pins,rods,wires in femur. Past Anesthesia/Blood Transfusion Reactions: Previous Problems w/ Anesthesia Additional Past Anesthesia/Blood Transfusion Reaction / Comment(s): States "unable to urinate after surgery for approx 4 days" (spinal anesthesia). Hard IV start. Smoking Status: Never smoker - Past Family History Mother Family Medical History: Cancer, Deep Vein Thrombosis (DVT), Pulmonary Embolus Additional Family Medical History / Comment(s): bladder cancer, kidney removed, multiple heart bypass surgeries, Father Family Medical History: Cancer, Deep Vein Thrombosis (DVT) Additional Family Medical History / Comment(s): CABG,colorectal CA Sister(s) Family Medical History: Pulmonary Embolus Medications and Allergies Home Medications Medication Instructions Recorded Confirmed Type Cholecalciferol [Vitamin D3 (25 5,000 unit PO BID 11/04/13 11/30/19 History Mcg = 1000 Iu)] Montelukast [Singulair] 10 mg PO HS 11/04/13 11/30/19 History Ondansetron HCl [Zofran] 8 mg PO TID 06/29/14 11/30/19 History Hydrocortisone [Cortef] 10 mg PO BID 09/28/15 11/30/19 History Fluticasone Nasal [place] [Flonase 1 spr EA NOSTRIL BID 08/20/16 11/30/19 History Nasal [place]] Glucagon Emergency Kit 1 mg IM ONCE PRN 08/20/16 11/30/19 History Biotin 10,000 mcg PO DAILY 06/03/17 11/30/19 History DULoxetine HCL [Cymbalta] 60 mg PO DAILY 06/03/17 11/30/19 History Folic Acid 0.8 mg PO BID 06/03/17 11/30/19 History Furosemide [Lasix] 80 mg PO BID 06/03/17 11/30/19 History Lidocaine 5% Patch [Lidoderm] 2 patch TOPICAL DAILY 06/03/17 11/30/19 History Magnesium Oxide [Magox 400] 400 mg PO BID 06/03/17 11/30/19 History Multivitamin [Multivitamins Adult 2 each PO HS 06/03/17 11/30/19 History Gummies] Oxybutynin Chloride 5 mg PO BID 06/03/17 11/30/19 History Acarbose [Precose] 25 mg PO DAILY@1200,1700 05/26/18 11/30/19 History Cyanocobalamin (Vitamin B-12) 5,000 mcg PO DAILY 05/26/18 11/30/19 History [Vitamin B12] Gabapentin [Neurontin] 600 mg PO TID 05/26/18 11/30/19 History Levothyroxine Sodium [Synthroid] 75 mcg PO DAILY 05/26/18 11/30/19 History Omeprazole [PriLOSEC] 40 mg PO BID 05/26/18 11/30/19 History Solu Cortef 1 dose IM ONCE PRN 05/26/18 11/30/19 History Zinc 100 mg PO BID 05/26/18 11/30/19 History Acetaminophen [Tylenol Extra 1,000 mg PO DIRECTED PRN 11/30/19 11/30/19 History Strength] Calcium Carbonate [Calcium] 600 mg PO BID 11/30/19 11/30/19 History Denosumab [Prolia] 60 mg SQ Q180D 11/30/19 11/30/19 History Diclofenac Epolamine [Flector 1.3% 1 patch TRANSDERM Q12H 11/30/19 11/30/19 History Patch] Diclofenac Sodium [Voltaren Gel] 2 gram TOPICAL QID PRN 11/30/19 11/30/19 History Docusate [Colace] 1,000 mg PO DAILY 11/30/19 11/30/19 History Loratadine [Claritin] 10 mg PO DAILY 11/30/19 11/30/19 History Potassium Chloride ER [K-Dur 20] 20 meq PO DAILY 11/30/19 11/30/19 History Pyridoxine HCl (Vitamin B6) 100 mg PO DAILY 11/30/19 11/30/19 History [Vitamin B-6] Spironolactone [Aldactone] 25 mg PO DAILY 11/30/19 11/30/19 History Thiamine HCl [Vitamin B-1] 100 mg PO DAILY 11/30/19 11/30/19 History Vitamin A 2,400 mcg PO DAILY 11/30/19 11/30/19 History diphenhydrAMINE [Benadryl] 25 mg PO Q8H PRN 11/30/19 11/30/19 History Allergies Allergy/AdvReac Type Severity Reaction Status Date / Time amoxicillin trihydrate Allergy Nausea & Verified 11/30/19 08:37 [From Augmentin] Vomiting,DIARRHEA,HIVES ciprofloxacin HCl Allergy Rash/Hives, Verified 11/30/19 08:37 [From Cipro] NAUSEA/VOMITING/DIARRHEA clarithromycin [From Biaxin] Allergy Rash/Hives, Verified 11/30/19 08:37 NAUSEA/VOMI TING/DIARRH EA diflunisal [From Dolobid] Allergy Rash/Hives,upset Verified 11/30/19 08:37 stomach ergotamine tartrate Allergy Anaphylaxis Verified 11/30/19 08:37 [From Cafergot] ,SOB fludrocortisone Allergy unable to Verified 11/30/19 08:37 [From Florinef] unrinate hydromorphone [From Dilaudid] Allergy Unknown Verified 11/30/19 08:37 metoclopramide HCl Allergy "pseudo Verified 11/30/19 08:37 [From Reglan] parkinsons" metronidazole [From Flagyl] Allergy hives,upset Verified 11/30/19 08:37 stomach,migraine sucralfate [From Carafate] Allergy Swelling Verified 11/30/19 08:37 sulfamethoxazole Allergy Rash/Hives, Verified 11/30/19 08:37 [From Bactrim] NAUSEA,MIGR AINES,diarr hea trimethoprim [From Bactrim] Allergy Rash/Hives, Verified 11/30/19 08:37 NAUSEA,MIGR AINES,diarr hea topiramate [From Topamax] AdvReac Severe Nausea Verified 11/30/19 08:37 aspirin AdvReac STATES Verified 11/30/19 08:37 "STOMACH DOES NOT TOLERATE ASPIRIN" can take ecotrin ketamine AdvReac visual Verified 11/30/19 08:37 disturbance and halluciations for several days Metronidazole HCl AdvReac hives,upset Verified 11/30/19 08:37 [From Flagyl] stomach,migraine potassium clavulanate AdvReac Nausea & Verified 11/30/19 08:37 [From Augmentin] Vomiting,DIARRHEA,HIVES diflusnisol Allergy Rash/Hives Uncoded 11/30/19 08:37 oral morphine AdvReac Nausea & Uncoded 11/30/19 08:37 Vomiting & Diarrhea
[~2019-12-02 07:05] MED LIST changes: -LIDOCAINE 1% 20 ML VIAL (10MG/ML) FOR IV START INTRADERMA PRN
[2019-12-02 07:25] VITALS: RESP 16; TEMP 97.1
[2019-12-02 07:31] LABS: Glucose,Whole Blood 115 mg/dL (75-99)
[2019-12-02] MEDS ORDERED: PROPOFOL 10 MG/ML 20 ML VIAL IV ONE (07:32)
[2019-12-02] MEDS ORDERED: LIDOCAINE 1% INJ 10MG/ML (20 ML MDV) ONE (07:32)
--- NOTE | 2019-12-02 07:38 | P.HPADDEND ---
H&P Addendum H&P Addendum Date: 12/02/19 Patient seen and evaluated. Reports moderate to severe dysphagia. We'll proceed with upper endoscopy. Possible dilation as well.
--- NOTE | 2019-12-02 07:58 | P.PCN ---
Date of Procedure: 12/02/19 Description of Procedure: PREOPERATIVE DIAGNOSES: 1. Gastroesophageal reflux disease 2. Dysphagia to solid food 3. History of gastric bypass 4. Underweight, BMI 18.6 POSTOPERATIVE DIAGNOSES: 1. Gastroesophageal reflux disease 2. Dysphagia to solid food 3. History of gastric bypass 4. Underweight, BMI 18.6 PROCEDURE PERFORMED: Esophagogastrojejunoscopy. SURGEON: Linda Ellsworth MD ANESTHESIA: MAC. INDICATIONS: The patient is a 69-year-old male with prior history of Juan Ramon-en-Y gastric bypass with revision, 8 years ago, 2012 at outside institution. In the last several months, she reports difficulty eating including swallowing foods. With her history of Juan Ramon-en-Y gastric bypass, upper endoscopy was offered for further evaluation and management. DESCRIPTION: Patient was brought to the endoscopy suite and laid in the left lateral decubitus position. After adequate IV sedation, a bite block was placed. An Olympus gastroscope was passed along the posterior oropharynx down to the distal esophagus. Severe tortuosity of both the proximal including distal esophagus was identified as well as the gastrojejunal anastomosis with acute angulation. No active peristalsis was identified of the esophagus. No significant stricture was identified as the anastomosis was patent. The squamocolumnar junction was found at approximately 37 cm from the incisors without erosive esophagitis. No moderate stricture was identified. The scope was advanced 60 cm from the incisors. No evidence of foreign body was found. No evidence of active gastrojejunal ulcerations were encountered. The GI tract was desufflated. The patient tolerated the procedure well. FINDINGS: 1. No acute gastrojejunal ulceration. 2. No foreign body found along the anastomosis. 3. Severe tortuosity of the proximal including distal esophagus as well as moderate angulation of entry into the gastric pouch 4. No significant anastomotic stricture 5. Squamocolumnar junction at 37 cm without erosive esophagitis 6. No active peristalsis along the length of the esophagus during the procedure PLAN: 1. Overall, findings consistent with severe esophageal dysmotility 2. Recommend evaluation with speech pathology for swallow study for recommendations of dietary modifications to liquids and pured diet. 3. May benefit from follow-up with her index operating bariatric surgeon at outside institution Plan - Discharge Summary Discharge Rx Participant: No New Discharge Prescriptions: Continue Cholecalciferol [Vitamin D3 (25 Mcg = 1000 Iu)] 5,000 unit PO BID Montelukast [Singulair] 10 mg PO HS Ondansetron HCl [Zofran] 8 mg PO TID Hydrocortisone [Cortef] 10 mg PO BID Fluticasone Nasal [place] [Flonase Nasal [place]] 1 spr EA NOSTRIL BID Glucagon Emergency Kit 1 mg IM ONCE PRN PRN Reason: Blood Sugar - Low Oxybutynin Chloride 5 mg PO BID Furosemide [Lasix] 80 mg PO BID DULoxetine HCL [Cymbalta] 60 mg PO DAILY Folic Acid 0.8 mg PO BID Multivitamin [Multivitamins Adult Gummies] 2 each PO HS Biotin 10,000 mcg PO DAILY Lidocaine 5% Patch [Lidoderm 5% Patch] 2 patch TOPICAL DAILY Magnesium Oxide [Magox 400] 400 mg PO BID Gabapentin [Neurontin] 600 mg PO TID Levothyroxine Sodium [Synthroid] 75 mcg PO DAILY Zinc 100 mg PO BID Omeprazole [PriLOSEC] 40 mg PO BID Cyanocobalamin (Vitamin B-12) [Vitamin B-12] 5,000 mcg PO DAILY Acarbose [Precose] 25 mg PO DAILY@1200,1700 Solu Cortef 1 dose IM ONCE PRN PRN Reason: trauma or severe illness Potassium Chloride ER [K-Dur 20] 20 meq PO DAILY Calcium Carbonate [Calcium] 600 mg PO BID Vitamin A 2,400 mcg PO DAILY Thiamine HCl [Vitamin B-1] 100 mg PO DAILY Pyridoxine HCl (Vitamin B6) [Vitamin B-6] 100 mg PO DAILY Loratadine [Claritin] 10 mg PO DAILY Spironolactone [Aldactone] 25 mg PO DAILY Docusate [Colace] 1,000 mg PO DAILY diphenhydrAMINE [Benadryl] 25 mg PO Q8H PRN PRN Reason: Itching Diclofenac Sodium [Voltaren Gel] 2 gram TOPICAL QID PRN PRN Reason: Pain Diclofenac Epolamine [Flector 1.3% Patch] 1 patch TRANSDERM Q12H Denosumab [Prolia] 60 mg SQ Q180D Acetaminophen [Tylenol Extra Strength] 1,000 mg PO DIRECTED PRN PRN Reason: Pain Discharge Medication List Cholecalciferol [Vitamin D3 (25 Mcg = 1000 Iu)] 5,000 unit PO BID 11/04/13 [History] Montelukast [Singulair] 10 mg PO HS 11/04/13 [History] Ondansetron HCl [Zofran] 8 mg PO TID 06/29/14 [History] Hydrocortisone [Cortef] 10 mg PO BID 09/28/15 [History] Fluticasone Nasal [place] [Flonase Nasal [place]] 1 spr EA NOSTRIL BID 08/20/16 [History] Glucagon Emergency Kit 1 mg IM ONCE PRN 08/20/16 [History] Biotin 10,000 mcg PO DAILY 06/03/17 [History] DULoxetine HCL [Cymbalta] 60 mg PO DAILY 06/03/17 [History] Folic Acid 0.8 mg PO BID 06/03/17 [History] Furosemide [Lasix] 80 mg PO BID 06/03/17 [History] Lidocaine 5% Patch [Lidoderm 5% Patch] 2 patch TOPICAL DAILY 06/03/17 [History] Magnesium Oxide [Magox 400] 400 mg PO BID 06/03/17 [History] Multivitamin [Multivitamins Adult Gummies] 2 each PO HS 06/03/17 [History] Oxybutynin Chloride 5 mg PO BID 06/03/17 [History] Acarbose [Precose] 25 mg PO DAILY@1200,1700 05/26/18 [History] Cyanocobalamin (Vitamin B-12) [Vitamin B-12] 5,000 mcg PO DAILY 05/26/18 [History] Gabapentin [Neurontin] 600 mg PO TID 05/26/18 [History] Levothyroxine Sodium [Synthroid] 75 mcg PO DAILY 05/26/18 [History] Omeprazole [PriLOSEC] 40 mg PO BID 05/26/18 [History] Solu Cortef 1 dose IM ONCE PRN 05/26/18 [History] Zinc 100 mg PO BID 05/26/18 [History] Acetaminophen [Tylenol Extra Strength] 1,000 mg PO DIRECTED PRN 11/30/19 [History] Calcium Carbonate [Calcium] 600 mg PO BID 11/30/19 [History] Denosumab [Prolia] 60 mg SQ Q180D 11/30/19 [History] Diclofenac Epolamine [Flector 1.3% Patch] 1 patch TRANSDERM Q12H 11/30/19 [History] Diclofenac Sodium [Voltaren Gel] 2 gram TOPICAL QID PRN 11/30/19 [History] Docusate [Colace] 1,000 mg PO DAILY 11/30/19 [History] Loratadine [Claritin] 10 mg PO DAILY 11/30/19 [History] Potassium Chloride ER [K-Dur 20] 20 meq PO DAILY 11/30/19 [History] Pyridoxine HCl (Vitamin B6) [Vitamin B-6] 100 mg PO DAILY 11/30/19 [History] Spironolactone [Aldactone] 25 mg PO DAILY 11/30/19 [History] Thiamine HCl [Vitamin B-1] 100 mg PO DAILY 11/30/19 [History] Vitamin A 2,400 mcg PO DAILY 11/30/19 [History] diphenhydrAMINE [Benadryl] 25 mg PO Q8H PRN 11/30/19 [History] [facility] [place] [facility] [place] [facility] Patient Instructions/Handouts: Esophageal Spasm (GEN) Activity/Diet/Wound Care/Special Instructions: Recommend pured foods or liquids. Avoid solid foods Discharge Disposition: HOME SELF-CARE
[2019-12-02 08:11] VITALS: BP 118/58; PULSE 79
== END 2019-12-02 08:40 | disposition home or self-care (01) ==
LOC: ORWHC2ENDO 07:05
PROVIDERS: ATTEND Surgery Plastic and Reconstructive Surgery
DX: K21.9 Gastro-esophageal reflux disease without esophagitis (principal); R13.10 Dysphagia, unspecified; K63.89 Other specified diseases of intestine; Z98.84 Bariatric surgery status; R63.6 Underweight; Z68.1 Body mass index [BMI] 19.9 or less, adult; E16.2 Hypoglycemia, unspecified; D50.9 Iron deficiency anemia, unspecified; M79.7 Fibromyalgia; I10 Essential (primary) hypertension; M19.90 Unspecified osteoarthritis, unspecified site; E07.9 Disorder of thyroid, unspecified; G35 Multiple sclerosis; E27.9 Disorder of adrenal gland, unspecified; E23.7 Disorder of pituitary gland, unspecified; D68.2 Hereditary deficiency of other clotting factors; I83.90 Asymptomatic varicose veins of unspecified lower extremity; M81.0 Age-related osteoporosis without current pathological fracture; I73.00 Raynaud's syndrome without gangrene; G47.00 Insomnia, unspecified; R53.82 Chronic fatigue, unspecified; G89.29 Other chronic pain; M54.9 Dorsalgia, unspecified; R32 Unspecified urinary incontinence; R55 Syncope and collapse; F41.9 Anxiety disorder, unspecified; F32.9 Major depressive disorder, single episode, unspecified; K08.109 Complete loss of teeth, unspecified cause, unspecified class; Z86.718 Personal history of other venous thrombosis and embolism; Z87.09 Personal history of other diseases of the respiratory system; Z87.440 Personal history of urinary (tract) infections; Z86.19 Personal history of other infectious and parasitic diseases; Z91.09 Other allergy status, other than to drugs and biological substances; Z91.81 History of falling; Z90.89 Acquired absence of other organs; Z98.890 Other specified postprocedural states; Z90.49 Acquired absence of other specified parts of digestive tract; Z96.659 Presence of unspecified artificial knee joint; Z96.643 Presence of artificial hip joint, bilateral; Z87.81 Personal history of (healed) traumatic fracture; Z91.89 Other specified personal risk factors, not elsewhere classified; Z79.899 Other long term (current) drug therapy; Z79.52 Long term (current) use of systemic steroids; Z79.890 Hormone replacement therapy; Z79.1 Long term (current) use of non-steroidal anti-inflammatories (NSAID); Z88.0 Allergy status to penicillin; Z88.1 Allergy status to other antibiotic agents; Z88.8 Allergy status to other drugs, medicaments and biological substances; Z88.5 Allergy status to narcotic agent; Z88.2 Allergy status to sulfonamides; Z88.6 Allergy status to analgesic agent; Z80.52 Family history of malignant neoplasm of bladder; Z82.49 Family history of ischemic heart disease and other diseases of the circulatory system; Z84.1 Family history of disorders of kidney and ureter; Z80.0 Family history of malignant neoplasm of digestive organs
CPT/HCPCS: 43235; J2001; J2704

== ENCOUNTER → 2019-12-15 | Outpatient (CLI) | payer MEDICARE, OTHER ==
[2019-12-15 20:46] LABS: T4, Free (Free Thyroxine) 1.1 ng/dL (0.80-1.80)
[2019-12-15 21:04] LABS: African American GFR (CKD) 103.2 (60.0-200.0); Albumin/Globulin Ratio 1.74 (1.60-3.17); Anion Gap 8.2 mmol/L (4.00-12.00); BUN/Creat Ratio 25.71 Ratio (12.00-20.00); Calcium 9.4 mg/dL (8.7-10.3); Carbon Dioxide 33.8 mmol/L (21.6-31.8); Globulin 2.3 g/dL (1.6-3.3); Potassium 4.3 mmol/L (3.5-5.5); Total Bilirubin 0.3 mg/dL (0.2-1.2); Total Protein 6.3 g/dL (6.2-8.2)
== END | disposition home or self-care (01) ==
LOC: LABWHC1 12:38
PROVIDERS: ATTEND Nurse Practitioner
DX: E03.9 Hypothyroidism, unspecified (principal); Z86.39 Personal history of other endocrine, nutritional and metabolic disease; M81.0 Age-related osteoporosis without current pathological fracture
CPT/HCPCS: 36415; 80053; 82306; 84439; 84443

== ENCOUNTER → 2020-04-28 | Outpatient (CLI) | payer MEDICARE, OTHER ==
[2020-04-28 14:38] LABS: HGB 11.3 gm/dL (11.4-16.0); Hypochromasia Slight; MCHC 30.6 g/dL (31.0-37.0); MCV 94.8 fL (80.0-100.0); Mean Platelet Volume 6.4; Platelet Count 498 k/uL (150-450); RDW 14.8 % (11.5-15.5); WBC 8.6 k/uL (3.8-10.6)
[2020-04-28 20:40] LABS: % Iron Saturation 9.48 (12.00-45.00); ALT 26 U/L (8-44); AST 57 U/L (13-35); African American GFR (CKD) 87.8 (60.0-200.0); Albumin/Globulin Ratio 1.78 (1.60-3.17); Alkaline Phosphatase 121 U/L (41-126); BUN/Creat Ratio 28.75 Ratio (12.00-20.00); Calcium 9.2 mg/dL (8.7-10.3); Carbon Dioxide 29.1 mmol/L (21.6-31.8); Chloride 94 mmol/L (96-109); Cholesterol 176 mg/dL (0-200); Folate, Serum >24.0 ng/mL; Globulin 2.3 g/dL (1.6-3.3); Glucose 88 mg/dL (70-110); Iron 22 ug/dL (50-170); LDL Cholesterol,Calculated 97.6 mg/dL (0.0-131.0); Magnesium 2.1 mg/dL (1.5-2.4); Non-African American GFR(CKD) 75.8 (60.0-200.0); Phosphorus 4.1 mg/dL (2.4-5.1); Potassium 3.9 mmol/L (3.5-5.5); Sodium 135 mmol/L (135-145); Total Bilirubin 0.3 mg/dL (0.3-1.2); Total Iron Binding Capacity 232 ug/dL (228-460); Total Protein 6.4 g/dL (6.2-8.2)
[2020-04-29 00:14] LABS: Hemoglobin A1C 4.9 % (4.0-6.0)
[2020-04-29 00:39] LABS: INR 0.93 (0.90-1.11); Partial Thromboplastin Time 32.6 sec (23.5-31.0); Prothrombin Time 10.1 sec (9.9-11.9)
== END | disposition home or self-care (01) ==
LOC: LABWHC1 12:29
PROVIDERS: ATTEND Surgery Plastic and Reconstructive Surgery
DX: E55.9 Vitamin D deficiency, unspecified (principal); D50.8 Other iron deficiency anemias; E44.0 Moderate protein-calorie malnutrition; K74.1 Hepatic sclerosis; N19 Unspecified kidney failure; K50.90 Crohn's disease, unspecified, without complications
CPT/HCPCS: 36415; 80053; 80061; 82306; 82525; 82607; 82728; 82746; 83036; 83540; 83550; 83735; 83970; 84100; 84134; 84255; 84425; 84443; 84590; 84630; 85027; 85610; 85730

== ENCOUNTER → 2020-05-03 | Outpatient (CLI) | payer MEDICARE, OTHER ==
[2020-05-03 14:58] VITALS: BP 110/71; PULSE 90; RESP 16; TEMP 98.3; BMI 20.1
--- NOTE | 2020-05-03 15:16 | P.PN ---
Subjective Progress Note Date: 05/03/20 DATE OF SERVICE: 05/03/2020 CHIEF COMPLAINT: Status post gastric bypass HISTORY OF PRESENT ILLNESS: Mouna Jones is a 69-year-old female with history of multiple bariatric procedures. She had a revision of Juan Ramon-en-Y gastric bypass in 2013 at an outside institution. She is 6 years out. She had an iron infusion for low iron. She reports bloating after taking her pills. She is having bowel movements. She reports weight gain 6 pounds overnight. She comes in with neck brace and needs more orthopedic surgery. Her highest weight is 190 pounds. For her height of 5 feet 0.25 inches, her ideal body weight is 127 pounds. Today she comes in weighing 104 pounds from 98 pounds, 3 months. She has gained 6 pounda in 3 months. Her total weight loss is 86 pounds. She has achieved 137 % excess weight loss. Body mass index is reduced from 36.9 down to 20.1. PAST MEDICAL HISTORY: 1. Morbid obesity, initial BMI 36.9 2. Osteoporosis. 3. Gastroesophageal reflux disease. 4. Osteoarthritis. 5. Hypertension. 6. Fibromyalgia. 7. Spinal stenosis. 8. Dyslipidemia. 9. Multiple sclerosis PAST SURGICAL HISTORY: 1. Lap band and gastroplasty reversed. 2. Tonsillectomy. 3. Adenoidectomy. 4. Cholecystectomy. 5. Left tear duct repair. 6. . 7. Left foot surgery. 8. Renal surgery. 9. Right foot fracture. 10. Left hand surgery. 11. Right hand surgery. 12. EGD. 13. Colonoscopy. 14. Juan Ramon-en- Y gastric bypass done open, 2013 15. Upper endoscopy with balloon dilatation. MEDICATIONS: Home Medications Medication Instructions Recorded Confirmed Cholecalciferol [Vitamin D3 (25 5,000 unit PO BID 11/04/13 02/22/20 Mcg = 1000 Iu)] Montelukast [Singulair] 10 mg PO HS 11/04/13 02/22/20 Ondansetron HCl [Zofran] 8 mg PO TID 06/29/14 02/22/20 Hydrocortisone [Cortef] 10 mg PO BID 09/28/15 02/22/20 Fluticasone Nasal [place] [Flonase 1 spr EA NOSTRIL BID 08/20/16 02/22/20 Nasal [place]] Glucagon Emergency Kit 1 mg IM ONCE PRN 08/20/16 02/22/20 Biotin 10,000 mcg PO DAILY 06/03/17 02/22/20 DULoxetine HCL [Cymbalta] 60 mg PO DAILY 06/03/17 02/22/20 Folic Acid 0.8 mg PO BID 06/03/17 02/22/20 Furosemide [Lasix] 80 mg PO BID 06/03/17 02/22/20 Lidocaine 5% Patch [Lidoderm 5% 2 patch TOPICAL DAILY 06/03/17 02/22/20 Patch] Magnesium Oxide [Magox 400] 400 mg PO BID 06/03/17 02/22/20 Multivitamin [Multivitamins Adult 2 each PO HS 06/03/17 02/22/20 Gummies] Oxybutynin Chloride 5 mg PO BID 06/03/17 02/22/20 Acarbose [Precose] 25 mg PO DAILY@1200,1700 05/26/18 02/22/20 Cyanocobalamin (Vitamin B-12) 5,000 mcg PO DAILY 05/26/18 02/22/20 [Vitamin B-12] Gabapentin [Neurontin] 600 mg PO TID 05/26/18 02/22/20 Levothyroxine Sodium [Synthroid] 75 mcg PO DAILY 05/26/18 02/22/20 Omeprazole [PriLOSEC] 40 mg PO BID 05/26/18 02/22/20 Solu Cortef 1 dose IM ONCE PRN 05/26/18 02/22/20 Zinc 100 mg PO BID 05/26/18 02/22/20 Acetaminophen [Tylenol Extra 1,000 mg PO DIRECTED PRN 11/30/19 02/22/20 Strength] Calcium Carbonate [Calcium] 600 mg PO BID 11/30/19 02/22/20 Denosumab [Prolia] 60 mg SQ Q180D 11/30/19 02/22/20 Diclofenac Epolamine [Flector 1.3% 1 patch TRANSDERM Q12H 11/30/19 02/22/20 Patch] Diclofenac Sodium [Voltaren Gel] 2 gram TOPICAL QID PRN 11/30/19 02/22/20 Docusate [Colace] 1,000 mg PO DAILY 11/30/19 02/22/20 Loratadine [Claritin] 10 mg PO DAILY 11/30/19 02/22/20 Potassium Chloride ER [K-Dur 20] 20 meq PO DAILY 11/30/19 02/22/20 Pyridoxine HCl (Vitamin B6) 100 mg PO DAILY 11/30/19 02/22/20 [Vitamin B-6] Spironolactone [Aldactone] 25 mg PO DAILY 11/30/19 02/22/20 Thiamine HCl [Vitamin B-1] 100 mg PO DAILY 11/30/19 02/22/20 Vitamin A 2,400 mcg PO DAILY 11/30/19 02/22/20 diphenhydrAMINE [Benadryl] 25 mg PO Q8H PRN 11/30/19 02/22/20 ALLERGIES: 1. AMOXICILLIN. 2. CIPROFLOXACIN. 3. BIAXIN. 4. DOLOBID. 5. CAFERGOT. 6. REGLAN. 7. FLAGYL. 8. CARAFATE. 9. BACTRIM. 10. ASPIRIN. 11. AUGMENTIN. 12. DIFLUSNISOL. 13. IV TYLENOL. 14. ORAL MORPHINE. SOCIAL HISTORY: No current tobacco use. History of occasional alcohol use. FAMILY HISTORY: Significant for morbid obesity including breast cancer, colon cancer and stomach cancer. REVIEW OF SYSTEMS: HEENT: Denies any active troubles with vision or hearing. GASTROINTESTINAL: History of gluten and soy milk allergy. Has dumping syndrome with her allergies. MUSCULOSKELETAL: Has diffuse osteoarthritis including multiple previous fractures. CONSTITUTIONAL: Her highest weight is 190 pounds. For her height of 5 feet, her ideal body weight is 127 pounds. BMI 36.9 initial. RHEUMATOLOGIC: Has multiple sclerosis including lupus. ENDOCRINE: Has hypoglycemia. Also has thyroid disorder. CARDIOVASCULAR: No recent chest pain or heart attacks. GENITOURINARY: Denies increasing urinary frequency or blood in urine. NEUROLOGIC: No current headaches. Has tingling of the distal extremities. PSYCH: No reports or suicidal ideation. HEMATOLOGIC: Denies any abnormal bleeding or bruising. SKIN: No skin cancer or rash. PHYSICAL EXAM: VITAL SIGNS: 5 feet and 1/4 inch, 104 pounds. Body mass index 20.1 Vital Signs Temp 98.3 F 05/03/20 14:56 Pulse 90 05/03/20 14:56 Resp 16 05/03/20 14:56 BP 110/71 05/03/20 14:56 Pulse Ox ABDOMEN: Soft, without palpable incisional hernias. Epigastric tenderness. GENERAL: Well-developed female in no acute distress. HEENT: No scleral icterus. Extraocular movements are grossly intact. CHEST: Nonlabored respirations. Equal bilateral excursions. CARDIOVASCULAR: Regular rate and rhythm. 2+ radial pulses. MUSCULOSKELETAL: No clubbing or cyanosis. 2+ edema. NEURO: No focal or lateralizing signs. Cranial nerves II to XII grossly intact. PSYCH: Appropriate affect. Alert and oriented to person, place, and time. SKIN: Well perfused. Good skin turgor. NECK: No JV distention. LABS: Reviewed. Hgb low 11.3, Iron is low 22, Pre-albumin is low. ASSESSMENT: 1. History of Juan Ramon-en-Y gastric bypass with multiple revisions 2. Body mass index reduced from 36.9 down to 20.1 3. Adrenal insufficiency. 4. Personal history of multiple sclerosis. 5. Dysphagia 6. Underweight 7. History of gastric ulcers 8. Esophageal dysmotility. 9. Esophagogastric junction. 10. Iron deficiency anemia 11. Copper deficiency 12. Secondary hyperparathyroidism PLAN: 1. Her iron remains to be low despite iron infusions. 2. With her history of multiple bariatric revisions, recommend follow up at [facility]. Recommend follow up with Dr. Savage. 3. For abdominal distention, recommend Gas-X. 4. For low iron, recommend follow up with decal cutter. Objective - Vital Signs Vital signs: Vital Signs Temp 98.3 F 05/03/20 14:56 Pulse 90 05/03/20 14:56 Resp 16 05/03/20 14:56 BP 110/71 05/03/20 14:56 Pulse Ox Intake & Output 05/02/20 05/03/20 05/03/20 18:59 06:59 18:59 Weight 47.174 kg
== END | disposition home or self-care (01) ==
LOC: BARWHC3 14:28
PROVIDERS: ATTEND Surgery Plastic and Reconstructive Surgery
DX: Z48.815 Encounter for surgical aftercare following surgery on the digestive system (principal); E27.40 Unspecified adrenocortical insufficiency; R13.10 Dysphagia, unspecified; R63.6 Underweight; Z87.19 Personal history of other diseases of the digestive system; K22.8 Other specified diseases of esophagus; D50.9 Iron deficiency anemia, unspecified; E61.0 Copper deficiency; E21.1 Secondary hyperparathyroidism, not elsewhere classified; Z86.69 Personal history of other diseases of the nervous system and sense organs; Z68.20 Body mass index [BMI] 20.0-20.9, adult; Z98.84 Bariatric surgery status; Z88.1 Allergy status to other antibiotic agents; Z88.6 Allergy status to analgesic agent; Z88.5 Allergy status to narcotic agent; Z88.8 Allergy status to other drugs, medicaments and biological substances; Z79.1 Long term (current) use of non-steroidal anti-inflammatories (NSAID); Z79.890 Hormone replacement therapy; Z79.51 Long term (current) use of inhaled steroids; Z79.899 Other long term (current) drug therapy
CPT/HCPCS: 99211

== ENCOUNTER → 2020-05-22 | Outpatient (CLI) | payer MEDICARE, OTHER ==
--- NOTE | 2020-05-22 10:35 | FL ---
EXAMINATION TYPE: FL UGI, single contrast DATE OF EXAM: 05/22/2020 CLINICAL INDICATION: 69-year-old female R10.84, generalized abdominal pain, dysphagia. COMPARISON: 11/25/2019 Total Fluoroscopy Time: 3 minutes 2 seconds Total images: 66 FINDINGS: The swallowing mechanism shows intermittent deep silent penetration with faint coating of the vocal c ords. No rola aspiration is identified. Extensive postsurgical change of ACDF and posterior cervical fusion throughout the cervical spine fro m C3 and below. There is persistent focal tenting of the posterior wall of the cervical esophagus along the distal as pect of the anterior fusion plate. The posterior wall of the cervical esophagus and lower hypopharynx remains closely apposed to the anterior fixation plate. The proximal thoracic esophagus is patulous and we are unable to obtain coating of the posterior wall . Moderate to severe tertiary peristalsis is present throughout with extensive contour irregularity but no fixed narrowing or suspicious filling defect identified within the remainder of the esophagus. No sizable hiatal hernia. Contrast passes promptly across the GE junction and postsurgical change of Juan Ramon-en-Y gastric bypass i s demonstrated. Most of the patient's stomach appears to have been excised/bypassed. IMPRESSION: 1. Extensive postsurgical change of ACDF and posterior cervical fusion. There is focal tenting of the posterior wall of the cervical esophagus along the distal aspect of the ACDF plate. Remainder of the posterior wall of the cervical esophagus remains closely apposed to the cervical fusion plate. Consi oscar postsurgical deformity with scarring. 2. The upper thoracic esophagus just beyond this point is patulous and we are unable to coat the post erior wall. This portion of the esophagus is inadequately assessed on this study. Direct visualizatio n can assess both of these areas. 3. Intermittent episodes of deep silent penetration with coating of the vocal cords. No rola aspirat ion seen. 4. 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 5. Status post Juan Ramon-en-Y gastric bypass. Most of the stomach appears to have been excised/bypassed. N o stricture or obstruction.
== END | disposition home or self-care (01) ==
LOC: RADUSWWP 08:53
PROVIDERS: ATTEND Surgery
DX: K22.8 Other specified diseases of esophagus (principal); Z98.84 Bariatric surgery status
CPT/HCPCS: 74240

== ENCOUNTER → 2020-05-24 | Outpatient (CLI) | payer MEDICARE, OTHER ==
--- NOTE | 2020-05-25 05:33 | CT ---
EXAMINATION TYPE: CT abdomen pelvis w con DATE OF EXAM: 05/24/2020 COMPARISON: 02/06/2018 and correlation upper GI exam 05/22/2020 HISTORY: 69-year-old female R10.84, upper abdominal pain TECHNIQUE: Contiguous axial scanning of the abdomen and pelvis following administration of 100 ml Iso nigel 300 IV contrast. Delayed images through the kidneys and coronal/sagittal reconstructions perform ed. CT DLP: 448.1 mGycm Automated exposure control for dose reduction was used. FINDINGS: Heart normal size without pericardial effusion. Strandy scarring or atelectasis posterior right base without pleural effusion. Patulous distal esophagus. Status post Juan Ramon-en-Y gastric bypass. Mild generalized anasarca change with Exam of the abdomen and pelvis is largely nondiagnostic due to extensive artifacts from dense retaine d barium throughout the colon. The pelvis further limited by extensive artifacts from the bilateral t otal hip arthroplasties and lumbar fusion hardware. A few scattered tiny subcentimeter hypodensities within the liver appear to have been present previou sly suggesting benign cysts. Cholecystectomy clips. The patient's lower anastomosis is patulous at 4.8 cm but otherwise, no definite dilated small bowel loops are seen in oral contrast extends throughout the colon. Prominent distention of the urinary bladder up to at least 11 cm. Otherwise, assessment of the abdome n and pelvis is largely nondiagnostic. Bones: Bilateral total hip arthroplasties. Suspect chronic loosening along the femoral stem on the nh ght with multiple cerclage wires. Healed fractures of the bilateral inferior pubic rami. L2-S1 receptionist nurse ior lumbar fusion. Grade 1 and retrolisthesis at T12-L1 and L1-L2. Minimally displaced fractures of t he right lateral eighth, ninth, and 10th ribs. IMPRESSION: 1. PROMINENT DISTENTION OF THE URINARY BLADDER UP TO AT LEAST 11 CM. CORRELATE TO ENSURE THAT THIS RE PRESENTS VOLUNTARY RETENTION. 2. PATULOUS DISTAL ESOPHAGUS STATUS POST JUAN RAMON-EN-Y GASTRIC BYPASS. REFER TO FURTHER DETAILS ON THE FABIOLA QUEEN'S RECENT UPPER GI EXAM. 3. MINIMALLY DISPLACED FRACTURES OF THE RIGHT LATERAL EIGHTH, NINTH, AND 10TH RIBS. THESE APPEAR FAIR LY ACUTE. CORRELATE FOR POINT TENDERNESS AND HISTORY OF INJURY. 4. OTHERWISE, NONDIAGNOSTIC EXAM OF THE ABDOMEN AND PELVIS DUE TO EXTENSIVE RETAINED DENSE BARIUM THR OUGHOUT THE COLON. RECOMMEND APPROPRIATE CLINICAL MEASURES TO PREVENT CONSTIPATION. 5. MILD GENERALIZED ANASARCA CHANGE.
== END | disposition home or self-care (01) ==
LOC: RADCTMAIN 14:22
PROVIDERS: ATTEND Surgery
DX: N32.89 Other specified disorders of bladder (principal); R60.1 Generalized edema; Z98.84 Bariatric surgery status; Z01.818 Encounter for other preprocedural examination
CPT/HCPCS: 82565; 84520; 74177; 36415; Q9967

== ENCOUNTER → 2020-05-24 | Outpatient (CLI) | payer MEDICARE, OTHER | END | disposition home or self-care (01) | LOC: LABWHC1 13:52 | PROVIDERS: ATTEND Family Medicine | DX: Z01.818 Encounter for other preprocedural examination (principal); Z20.828 Contact with and (suspected) exposure to other viral communicable diseases | CPT/HCPCS: U0003; C9803 ==

== ENCOUNTER → 2020-11-08 | Outpatient (CLI) | payer MEDICARE, OTHER ==
[2020-11-08 10:18] LABS: HCT 37.4 % (34.0-46.0); HGB 11.9 gm/dL (11.4-16.0); MCH 29.5 pg (25.0-35.0); MCHC 31.8 g/dL (31.0-37.0); MCV 92.8 fL (80.0-100.0); Mean Platelet Volume 7.7; Platelet Count 376 k/uL (150-450); RBC 4.02 m/uL (3.80-5.40); RDW 15.4 % (11.5-15.5); WBC 10.3 k/uL (3.8-10.6)
[2020-11-08 11:52] LABS: INR 0.9 (<1.2); Partial Thromboplastin Time 23.6 sec (22.0-30.0); Prothrombin Time 9.8 sec (9.0-12.0)
[2020-11-08 15:14] LABS: Chol/HDL Ratio 2.93; Cholesterol 211 mg/dL (0-200); Ferritin 443.7 ng/mL (10.0-291.0); Folate, Serum >24.0 ng/mL; Iron 25 ug/dL (50-170); Total Iron Binding Capacity 255 ug/dL (228-460)
[2020-11-09 14:46] LABS: Vitamin A 82 ug/dL (38-106)
[2020-11-09 15:07] LABS: Zinc, Serum 70 ug/dL (60-130)
[2020-11-09 15:55] LABS: African American GFR (CKD) 66.6 (60.0-200.0); Albumin 4.2 g/dL (3.80-4.90); Anion Gap 23.8 mmol/L (4.00-12.00); Calcium 9.2 mg/dL (8.7-10.3); Carbon Dioxide 20.2 mmol/L (21.6-31.8); Non-African American GFR(CKD) 57.4 (60.0-200.0); Phosphorus 3.9 mg/dL (2.4-5.1); Potassium 4.8 mmol/L (3.5-5.5); Total Bilirubin 0.5 mg/dL (0.2-1.2); Total Protein 6.7 g/dL (6.2-8.2)
[2020-11-10 06:55] LABS: Vit B1(Thiamine) 39 ug/L (38-122)
[2020-11-13 10:53] LABS: Selenium 109 mcg/L (63-160)
== END | disposition home or self-care (01) ==
LOC: LABWHC1 08:04
PROVIDERS: ATTEND Surgery Plastic and Reconstructive Surgery
DX: E66.01 Morbid (severe) obesity due to excess calories (principal); E89.1 Postprocedural hypoinsulinemia; D50.8 Other iron deficiency anemias; K90.89 Other intestinal malabsorption; E55.9 Vitamin D deficiency, unspecified; K74.1 Hepatic sclerosis; N19 Unspecified kidney failure; K50.90 Crohn's disease, unspecified, without complications; E03.9 Hypothyroidism, unspecified; Z98.84 Bariatric surgery status
CPT/HCPCS: 36415; 80053; 80061; 82306; 82525; 82607; 82728; 82746; 83036; 83540; 83550; 83735; 83970; 84100; 84134; 84255; 84425; 84443; 84590; 84630; 85027; 85610; 85730

== ENCOUNTER → 2020-11-29 | Outpatient (CLI) | payer MEDICARE, OTHER ==
[2020-11-29 13:39] VITALS: BP 125/76; PULSE 77; RESP 18; TEMP 97.8; BMI 20.3
--- NOTE | 2020-11-29 13:52 | P.PN ---
Subjective Progress Note Date: 11/29/20 DATE OF SERVICE: 11/29/2020 CHIEF COMPLAINT: Status post gastric bypass HISTORY OF PRESENT ILLNESS: Mouna Jones is a 70-year-old female with history of multiple bariatric procedures. She had a revision of Juan Ramon-en-Y gastric [place] 2013 [place] [facility] [place] She is 7 year out. She has chronic dysphagia. She had repair of achlasia and heller myotomy by Dr. Petersen October 19. over 1 month ago. She is now recovered. She presents with evaluation of her gastric bypass and weight loss management. Her highest weight is 190 pounds. For her height of 5 feet 0.25 inches, her ideal body weight is 127 pounds. Today she comes in weighing 104 pounds unchanged from 7 months ago. Her lifetime total weight loss is 85 pounds. She has achieved 135 % excess weight loss. Body mass index is reduced from 36.9 down to 20.3. PAST MEDICAL HISTORY: 1. Morbid obesity, initial BMI 36.9 2. Osteoporosis. 3. Gastroesophageal reflux disease. 4. Osteoarthritis diffuse 5. Hypertension. 6. Fibromyalgia. 7. Spinal stenosis. 8. Dyslipidemia. 9. Multiple sclerosis 10. Adrenal insufficiency 11. Achalasia 12. Chronic obstructive pulmonary disease with asthma 13. Overactive bladder 14. Hypothyroidism 15. Hypertensive heart disease. 16. Hypoglycemia 17. Neuropathy 18. Anxiety disorder 19. Chronic pain syndrome PAST SURGICAL HISTORY: 1. Lap band and gastroplasty reversed. 2. Tonsillectomy. 3. Adenoidectomy. 4. Cholecystectomy. 5. Left tear duct repair. 6. . 7. Left foot surgery. 8. Renal surgery. 9. Right foot fracture. 10. Left hand surgery. 11. Right hand surgery. 12. EGD. 13. Colonoscopy. 14. Juan Ramon-en- Y gastric bypass done open, 2013 15. Upper endoscopy with balloon dilatation. 16. Heller myotomy, October 19, [place] [facility] [place]: Home Medications Medication Instructions Recorded Confirmed Cholecalciferol [Vitamin D3 (25 5,000 unit PO BID 11/04/13 11/29/20 Mcg = 1000 Iu)] Montelukast [Singulair] 10 mg PO HS 11/04/13 11/29/20 Ondansetron HCl [Zofran] 8 mg PO TID 06/29/14 11/29/20 Hydrocortisone [Cortef] 5 mg PO BID 09/28/15 11/29/20 Fluticasone Nasal Rupert [Flonase 1 spr EA NOSTRIL BID 08/20/16 11/29/20 Nasal Rupert] Biotin 10,000 mcg PO DAILY 06/03/17 11/29/20 Folic Acid 0.8 mg PO BID 06/03/17 11/29/20 Furosemide [Lasix] 40 mg PO BID 06/03/17 11/29/20 Magnesium Oxide [Magox 400] 400 mg PO BID 06/03/17 11/29/20 Multivitamin [Multivitamins Adult 2 each PO HS 06/03/17 11/29/20 Gummies] Oxybutynin Chloride 5 mg PO BID 06/03/17 11/29/20 Acarbose [Precose] 25 mg PO TID 05/26/18 11/29/20 Cyanocobalamin (Vitamin B-12) 5,000 mcg PO DAILY 05/26/18 11/29/20 [Vitamin B-12] Gabapentin [Neurontin] 300 mg PO TID 05/26/18 11/29/20 Levothyroxine Sodium [Synthroid] 75 mcg PO DAILY 05/26/18 11/29/20 Omeprazole [PriLOSEC] 40 mg PO BID 05/26/18 11/29/20 Zinc 100 mg PO BID 05/26/18 11/29/20 Diclofenac Epolamine [Flector 1.3% 1 patch TRANSDERM Q12H 11/30/19 11/29/20 Patch] Loratadine [Claritin] 10 mg PO DAILY 11/30/19 11/29/20 Potassium Chloride ER [K-Dur 20] 20 meq PO DAILY 11/30/19 11/29/20 Spironolactone [Aldactone] 25 mg PO BID 11/30/19 11/29/20 Vitamin A [Vitamin A (8,000 Units 2,400 mcg PO DAILY 11/30/19 11/29/20 = 2,400 MCG)] ALPRAZolam [Xanax] 0.25 mg PO BID 11/29/20 11/29/20 Baclofen 10 mg PO TID 11/29/20 11/29/20 Doxycycline Hyclate 100 mg PO BID 11/29/20 11/29/20 Glucagon [Baqsimi] 1 spray NASAL DIRECTED 11/29/20 11/29/20 HYDROcodone/APAP 10-325MG [Brixey 1 tab PO Q6HR PRN 11/29/20 11/29/20 10-325] Ipratropium Rockwell [Ipratropium 2 sprays EA NOSTRIL BID 11/29/20 11/29/20 Rockwell 0.03%] Naloxegol Oxalate [Movantik] 25 mg PO DAILY 11/29/20 11/29/20 Naloxone HCl [Narcan] 4 mg NASAL DIRECTED 11/29/20 11/29/20 Pyridoxine HCl (Vitamin B6) 100 mg PO DAILY 11/29/20 11/29/20 [Vitamin B-6] ALLERGIES: Allergies Allergy/AdvReac Type Severity Reaction Status Date / Time amoxicillin trihydrate Allergy Nausea & Verified 11/29/20 13:30 [From Augmentin] Vomiting,DIARRHEA,HIVES ciprofloxacin HCl Allergy Rash/Hives, Verified 11/29/20 13:30 [From Cipro] NAUSEA/VOMITING/DIARRHEA clarithromycin [From Biaxin] Allergy Rash/Hives, Verified 11/29/20 13:30 NAUSEA/VOMI TING/DIARRH EA diflunisal [From Dolobid] Allergy Rash/Hives,upset Verified 11/29/20 13:30 stomach ergotamine tartrate Allergy Anaphylaxis Verified 11/29/20 13:30 [From Cafergot] ,SOB fludrocortisone Allergy unable to Verified 11/29/20 13:30 [From Florinef] unrinate hydromorphone [From Dilaudid] Allergy Unknown Verified 11/29/20 13:30 metoclopramide HCl Allergy "pseudo Verified 11/29/20 13:30 [From Reglan] parkinsons" metronidazole [From Flagyl] Allergy hives,upset Verified 11/29/20 13:30 stomach,migraine sucralfate [From Carafate] Allergy Swelling Verified 11/29/20 13:30 sulfamethoxazole Allergy Rash/Hives, Verified 11/29/20 13:30 [From Bactrim] NAUSEA,MIGR AINES,diarr hea trimethoprim [From Bactrim] Allergy Rash/Hives, Verified 11/29/20 13:30 NAUSEA,MIGR AINES,diarr hea topiramate [From Topamax] AdvReac Severe Nausea Verified 11/29/20 13:30 aspirin AdvReac STATES Verified 11/29/20 13:30 "STOMACH DOES NOT TOLERATE ASPIRIN" can take ecotrin ketamine AdvReac visual Verified 11/29/20 13:30 disturbance and halluciations for several days Metronidazole HCl AdvReac hives,upset Verified 11/29/20 13:30 [From Flagyl] stomach,migraine potassium clavulanate AdvReac Nausea & Verified 11/29/20 13:30 [From Augmentin] Vomiting,DIARRHEA,HIVES diflusnisol Allergy Rash/Hives Uncoded 11/29/20 13:30 oral morphine AdvReac Nausea & Uncoded 11/29/20 13:30 Vomiting & Diarrhea SOCIAL HISTORY: No current tobacco use. History of occasional alcohol use. FAMILY HISTORY: Significant for morbid obesity including breast cancer, colon cancer and stomach cancer. REVIEW OF SYSTEMS: HEENT: Denies any active troubles with vision or hearing. GASTROINTESTINAL: History of gluten and soy milk allergy. Has dumping syndrome with her allergies. MUSCULOSKELETAL: Has diffuse osteoarthritis including multiple previous fractures. CONSTITUTIONAL: Her highest weight is 190 pounds. For her height of 5 feet, her ideal body weight is 127 pounds. BMI 36.9 initial. RHEUMATOLOGIC: Has multiple sclerosis including lupus. ENDOCRINE: Has hypoglycemia. Also has thyroid disorder. CARDIOVASCULAR: No recent chest pain or heart attacks. GENITOURINARY: Denies increasing urinary frequency or blood in urine. NEUROLOGIC: No current headaches. Has tingling of the distal extremities. PSYCH: No reports or suicidal ideation. HEMATOLOGIC: Denies any abnormal bleeding or bruising. SKIN: No skin cancer or rash. PHYSICAL EXAM: VITAL SIGNS: 5 feet and 1/4 inch, 104 pounds. Body mass index 20.1 Vital Signs Temp 97.8 F 11/29/20 13:29 Pulse 77 11/29/20 13:29 Resp 18 11/29/20 13:29 BP 125/76 11/29/20 13:29 Pulse Ox ABDOMEN: Soft, without palpable incisional hernias. Epigastric tenderness. GENERAL: Well-developed female in no acute distress. HEENT: No scleral icterus. Extraocular movements are grossly intact. CHEST: Nonlabored respirations. Equal bilateral excursions. CARDIOVASCULAR: Regular rate and rhythm. 2+ radial pulses. MUSCULOSKELETAL: No clubbing or cyanosis. 2+ edema lower extremities. NEURO: No focal or lateralizing signs. Cranial nerves II to XII grossly intact. PSYCH: Appropriate affect. Alert and oriented to person, place, and time. SKIN: Well perfused. Good skin turgor. NECK: No JV distention. LABS: Reviewed. Iron is low. AST and alkaline phosphatase is elevated. Cholesterol elevated. Vitamin D is low. IMAGES: UGI reviewed with multiple tertiary contractions without hiatal hernia. This is my independent interpretation RADIOLOGY: UGI report with corkscrewing of the esophagus. CT of the abdomen and pelvis 05/2020 report reviewed patulous esophagus. Right rib fractures. Otherwise, non-diagnostic. ASSESSMENT: 1. History of Juan Ramon-en-Y gastric bypass with multiple revisions 2. Body mass index reduced from 36.9 down to 20.3 3. Adrenal insufficiency. 4. Personal history of multiple sclerosis. 5. Dysphagia 6. Underweight 7. History of gastric ulcers 8. Esophageal dysmotility. 9. Esophagogastric junction. 10. Iron deficiency anemia 11. Copper deficiency 12. Secondary hyperparathyroidism 13. Gastroesophageal reflux disease. 14. Osteoarthritis diffuse 15. Hypertension. 16. Fibromyalgia. 17. Spinal stenosis. 18. Dyslipidemia. 19. Multiple sclerosis 20. Adrenal insufficiency 21. Achalasia 22. Chronic obstructive pulmonary disease with asthma 23. Overactive bladder 24. Hypothyroidism 25. Hypertensive heart disease. 26. Hypoglycemia 27. Neuropathy 28. Anxiety disorder 29. Chronic pain syndrome 30. Osteoporosis. PLAN: 1. She had repair of achlasia and heller myotomy with expected difficulty with swallowing. Management per tertiary care center. 2. Her weight is stable. Recommend protein intake 50+ grams daily. 3. Follow up yearly. Objective - Vital Signs Vital signs: Vital Signs Temp 97.8 F 11/29/20 13:29 Pulse 77 11/29/20 13:29 Resp 18 11/29/20 13:29 BP 125/76 11/29/20 13:29 Pulse Ox Intake & Output 11/28/20 11/29/20 11/29/20 18:59 06:59 18:59 Weight 47.627 kg
== END ==
LOC: BARWHC3 12:42
PROVIDERS: ATTEND Surgery Plastic and Reconstructive Surgery
DX: Z09 Encounter for follow-up examination after completed treatment for conditions other than malignant neoplasm (principal); D50.9 Iron deficiency anemia, unspecified; E03.9 Hypothyroidism, unspecified; E27.40 Unspecified adrenocortical insufficiency; E78.5 Hyperlipidemia, unspecified; F41.9 Anxiety disorder, unspecified; G62.9 Polyneuropathy, unspecified; G89.4 Chronic pain syndrome; I11.9 Hypertensive heart disease without heart failure; J44.9 Chronic obstructive pulmonary disease, unspecified; K21.9 Gastro-esophageal reflux disease without esophagitis; K22.4 Dyskinesia of esophagus; M19.90 Unspecified osteoarthritis, unspecified site; M79.7 Fibromyalgia; M81.0 Age-related osteoporosis without current pathological fracture; N25.81 Secondary hyperparathyroidism of renal origin; N32.81 Overactive bladder; R63.6 Underweight; R13.10 Dysphagia, unspecified; M48.00 Spinal stenosis, site unspecified; E16.2 Hypoglycemia, unspecified; E61.0 Copper deficiency; G35 Multiple sclerosis; Z79.899 Other long term (current) drug therapy; Z88.0 Allergy status to penicillin; Z88.1 Allergy status to other antibiotic agents; Z88.2 Allergy status to sulfonamides; Z87.19 Personal history of other diseases of the digestive system; Z88.5 Allergy status to narcotic agent; Z88.6 Allergy status to analgesic agent; Z86.69 Personal history of other diseases of the nervous system and sense organs; Z88.8 Allergy status to other drugs, medicaments and biological substances; Z98.84 Bariatric surgery status
CPT/HCPCS: 99211

== ENCOUNTER → 2020-12-04 | Outpatient (CLI) | payer MEDICARE, OTHER ==
--- NOTE | 2020-12-04 16:30 | MR ---
EXAMINATION TYPE: MR wrist LT wo con DATE OF EXAM: 12/04/2020 COMPARISON: None HISTORY: Pain in left wrist, lump Standard multiplanar, multisequence MRI departmental protocol Multiplanar, multisequence images of the left wrist were acquired. Diffusion weighted imaging was per formed. FINDINGS: Motion degrades images. TENDONS: The visualized portions of the flexor and extensor tendons are grossly unremarkable. LIGAMENTS: There is a scapholunate ligament tear with minimal widening of the scapholunate interval. The lunotri quetral ligament is intact. The central disc of the triangular fibrocartilage is torn. DISTAL RADIAL ULNAR JOINT: There are marked degenerative changes of the distal radial ulnar joint with subchondral edema and cys tic formation and a heterogeneous effusion. NERVES: The median nerve is markedly enlarged and heterogeneous. BONE MARROW: There are marked degenerative changes noted throughout the carpus with subchondral cystic formation a nd edema, most marked in the capitate and in the base of the second and fourth metacarpals. There is susceptibility artifact from fixation of the first carpometacarpal articulation which is not well vis ualized. There is exaggeration of the dorsal tilt of the lunate. MUSCULATURE: Musculature is unremarkable. IMPRESSION: 1. The median nerve is markedly enlarged and heterogeneous with surrounding edema. 2. Extensive degenerative changes are noted throughout the wrist and distal radial ulnar joint with h eterogeneous fluid in the distal radial ulnar joint. 3. There is a tear of the scapholunate ligament with slight widening of the scapholunate interval and exaggeration of the dorsal tilt of the lunate relative to the capitate. 4. Postoperative changes of the first carpometacarpal articulation limit evaluation. 5. No definite mass is seen. If there is clinical concern for mass, MRI with and without contrast wit h marking the mass with vitamin E capsule is recommended.
== END | disposition home or self-care (01) ==
LOC: RADMRIMAIN 08:55
PROVIDERS: ATTEND Orthopaedic Surgery
DX: S63.592A Other specified sprain of left wrist, initial encounter (principal)

== ENCOUNTER → 2020-12-04 | Outpatient (CLI) | payer MEDICARE, OTHER ==
[2020-12-04 08:39] LABS: Albumin 3.2 g/dL (3.5-5.0); Calcium 8.7 mg/dL (8.4-10.2); Magnesium 2.4 mg/dL (1.6-2.3); Potassium 4.3 mmol/L (3.5-5.1); Uric Acid 5.8 mg/dL (3.7-7.4)
[2020-12-04 08:44] LABS: Basophils # (A) 0.1 k/uL (0-0.2); Basophils % (A) 1 %; Eosinophils # (A) 0.1 k/uL (0-0.7); Eosinophils % (A) 1 %; HCT 32.8 % (34.0-46.0); HGB 10.6 gm/dL (11.4-16.0); Hypochromasia Slight; Lymphocytes # (A) 1.8 k/uL (1.0-4.8); Lymphocytes % (A) 23 %; MCH 31.3 pg (25.0-35.0); MCHC 32.2 g/dL (31.0-37.0); Mean Platelet Volume 6.5; Monocytes # (A) 0.4 k/uL (0-1.0); Monocytes % (A) 5 %; Neutrophils # (A) 5.1 k/uL (1.3-7.7); Neutrophils % (A) 68 %; Platelet Count 544 k/uL (150-450); RBC 3.38 m/uL (3.80-5.40); WBC 7.5 k/uL (3.8-10.6)
[2020-12-04 13:55] LABS: Appearance,Urine Clear (Clear); Color,Urine Colorless; Specific Gravity,Urine 1.015 (1.001-1.035)
[2020-12-04 13:56] LABS: Bilirubin,Urine Negative (Negative); Blood,Urine Negative (Negative); Glucose,Urine (UA) Negative (Negative); Ketones,Urine Negative (Negative); Leukocyte Esterase,Urine Moderate (Negative); Nitrite,Urine Negative (Negative); PH, Urine 7.5 (5.0-8.0); Protein,Urine Negative (Negative); Urobilinogen,Urine <2.0 mg/dL (<2.0)
[2020-12-04 14:01] LABS: Bacteria,Urine Few /hpf; Creatinine,Urine Random 10.8 mg/dL; Protein/Creatinine Ratio,Urine 1.296; WBC,Urine 11 /hpf (0-5)
[2020-12-04 15:13] LABS: % Iron Saturation 17.56 (12.00-45.00)
[2020-12-04 15:21] LABS: Ferritin 281.6 ng/mL (10.0-291.0)
--- NOTE | 2020-12-04 16:19 | BD ---
EXAMINATION TYPE: Axial Bone Density DATE OF EXAM: 12/04/2020 COMPARISON: Prior bone scan May 08, 2017 CLINICAL HISTORY: Osteoporosis. Height: 59 IN Weight: 108 LBS FRAX RISK QUESTIONS: Glucocorticoids (More than 3mos): CORTEF 75 MG PER DAY (Ex: prednisone, prednisolone, methylprednisolone, dexamethasone, and hydrocortisone). History of Fracture in Adulthood: RT FEMUR Secondary Osteoporosis: 3. Menopause before 45: AGE 40 4. Malnutrition: YES RISK FACTORS HISTORY OF: Hip Fracture (Right): YES 2016 History of Wrist Fracture: LT WRIST APPROX AGE 46 Surgery to Spine/Hip(right/left)/Wrist (/left): L-SPINE SURGERY AGE 61; ADELINA HIP SURGERIES; LT WRIST AGE 46 Family History of Osteoporosis: MOTHER AND GRANDMOTHER Active: LIMITED Postmenopausal woman: AGE 40 Take estrogen and/or progesterone medications: NOT NOW How long: TOOK CONTROL FOR 4 YEARS Lost more than 2 inches in height since high school: YES 3" Frequent falls: YES Adrenal Insufficiency: YES MEDICATIONS: Prednisone or other steroids: PT TAKES CORTEF 75 MG/DAY How Lon+ YEARS Thyroid Medications: YES Which medication: Levothyroxine How Lon+ YEARS Osteoporosis Medications: YES Which medication: Prolia How Lon YEARS Additional Medications: VIT D, LEVOTHYROXINE, CORTEF, VIT B, VIT 6, VIT B12, VIT A, ZINC, MAGNESIUM, ADRENAL MEDS, PAIN MEDS, GABAPENTIN, LASIX, SPIROLACTONE, EXAM MEASUREMENTS: Bone mineral densitometry was performed using the [employer] System. PT HAS HAD L-SPINE SURGERY PT HAS HAD ADELINA HIP REPLACEMENTS/SURGERY Bone mineral density about the R Wrist (g/cm2): 0.290 T Score values are as follows: -----Dist. R+U: -6.2 -----Prox. R+U: -5.6 -----Radius total: -6.4 Bone mineral density has: Decreased -5.4% since study of: 11/25/2018 IMPRESSION: Osteoporosis (T Score less than -2.5) remains present. There remains increased fracture risk and therapy is usually indicated based on age. Re-Screen 1-2 years. NOTE: T-SCORE=SD OF THE YOUNG ADULT MEAN.
== END | disposition home or self-care (01) ==
LOC: RADBDWWP 07:51
PROVIDERS: ATTEND Nurse Practitioner Family
DX: M81.0 Age-related osteoporosis without current pathological fracture (principal); N39.0 Urinary tract infection, site not specified; E87.1 Hypo-osmolality and hyponatremia; M10.9 Gout, unspecified; D64.9 Anemia, unspecified; R80.9 Proteinuria, unspecified; E55.9 Vitamin D deficiency, unspecified
CPT/HCPCS: 77081; 80048; 81001; 82040; 82306; 82570; 82728; 83540; 83550; 83735; 84156; 84550; 85025

== ENCOUNTER 2021-02-26 01:43 | Inpatient (IN) | payer MEDICARE, OTHER ==
[2021-02-26] MEDS: HYDROcodone/APAP 10-325MG 1 EACH TAB PO PRN ×4 (02:02→21:11)
[2021-02-26] MEDS ORDERED: IPRATROPIUM-ALBUTEROL 3 ML NEB INHALATION PRN (02:20)
[2021-02-26] MEDS ORDERED: PNEUMONIA PROTOCOL UTILIZED 1 EACH MISC PO PRN (02:20)
--- NOTE | 2021-02-26 02:28 | ED ---
Recheck HPI - General Chief Complaint: Weakness Stated Complaint: Weakness Time Seen by Provider: 02/26/21 02:12 Source: EMS, RN notes reviewed, old records reviewed Mode of arrival: EMS Limitations: no limitations - History of Present Illness Initial Comments: This is a 70-year-old female to the emergency room today. Patient is brought in by EMS accepted in transfer for persistent care of chronic COPD exacerbated now by pneumonia. Patient has been feverish, negative for coronavirus, complaining of both chest pain and generalized body pain MD Complaint: needs IV antibiotics -: days(s) Returns Today for: Called Because of Abnormal Lab/Test, needs IV antibiotics, persistent/worsening pain related to initial visit Symptoms Since Prior Visit: worsening pain, fever Context: planned re-check Associated Symptoms: fever, chills, shortness of breath Treatments Prior to Arrival: Given Antibiotics on, Given Pain Meds on - Related Data Home Medications Medication Instructions Recorded Confirmed Cholecalciferol [Vitamin D3 (25 5,000 unit PO BID 11/04/13 11/29/20 Mcg = 1000 Iu)] Montelukast [Singulair] 10 mg PO HS 11/04/13 11/29/20 Ondansetron HCl [Zofran] 8 mg PO TID 06/29/14 11/29/20 Hydrocortisone [Cortef] 5 mg PO BID 09/28/15 11/29/20 Fluticasone Nasal [place] [Flonase 1 spr EA NOSTRIL BID 08/20/16 11/29/20 Nasal [place]] Biotin 10,000 mcg PO DAILY 06/03/17 11/29/20 Folic Acid 0.8 mg PO BID 06/03/17 11/29/20 Furosemide [Lasix] 40 mg PO BID 06/03/17 11/29/20 Magnesium Oxide [Magox 400] 400 mg PO BID 06/03/17 11/29/20 Multivitamin [Multivitamins Adult 2 each PO HS 06/03/17 11/29/20 Gummies] Oxybutynin Chloride 5 mg PO BID 06/03/17 11/29/20 Acarbose [Precose] 25 mg PO TID 05/26/18 11/29/20 Cyanocobalamin (Vitamin B-12) 5,000 mcg PO DAILY 05/26/18 11/29/20 [Vitamin B-12] Gabapentin [Neurontin] 300 mg PO TID 05/26/18 11/29/20 Levothyroxine Sodium [Synthroid] 75 mcg PO DAILY 05/26/18 11/29/20 Omeprazole [PriLOSEC] 40 mg PO BID 05/26/18 11/29/20 Zinc 100 mg PO BID 05/26/18 11/29/20 Diclofenac Epolamine [Flector 1.3% 1 patch TRANSDERM Q12H 11/30/19 11/29/20 Patch] Loratadine [Claritin] 10 mg PO DAILY 11/30/19 11/29/20 Potassium Chloride ER [K-Dur 20] 20 meq PO DAILY 11/30/19 11/29/20 Spironolactone [Aldactone] 25 mg PO BID 11/30/19 11/29/20 Vitamin A [Vitamin A (8,000 Units 2,400 mcg PO DAILY 11/30/19 11/29/20 = 2,400 MCG)] ALPRAZolam [Xanax] 0.25 mg PO BID 11/29/20 11/29/20 Baclofen 10 mg PO TID 11/29/20 11/29/20 Doxycycline Hyclate 100 mg PO BID 11/29/20 11/29/20 Glucagon [Baqsimi] 1 spray NASAL DIRECTED 11/29/20 11/29/20 HYDROcodone/APAP 10-325MG [[place] 1 tab PO Q6HR PRN 11/29/20 11/29/20 10-325] Ipratropium [place] [Ipratropium 2 sprays EA NOSTRIL BID 11/29/20 11/29/20 [place] 0.03%] Naloxegol Oxalate [Movantik] 25 mg PO DAILY 11/29/20 11/29/20 Naloxone HCl [Narcan] 4 mg NASAL DIRECTED 11/29/20 11/29/20 Pyridoxine HCl (Vitamin B6) 100 mg PO DAILY 11/29/20 11/29/20 [Vitamin B-6] Allergies Allergy/AdvReac Type Severity Reaction Status Date / Time amoxicillin trihydrate Allergy Nausea & Verified 02/26/21 01:51 [From Augmentin] Vomiting,DIARRHEA,HIVES ciprofloxacin HCl Allergy Rash/Hives, Verified 02/26/21 01:51 [From Cipro] NAUSEA/VOMITING/DIARRHEA clarithromycin [From Biaxin] Allergy Rash/Hives, Verified 02/26/21 01:51 NAUSEA/VOMI TING/DIARRH EA diflunisal [From Dolobid] Allergy Rash/Hives,upset Verified 02/26/21 01:51 stomach ergotamine tartrate Allergy Anaphylaxis Verified 02/26/21 01:51 [From Cafergot] ,SOB fludrocortisone Allergy unable to Verified 02/26/21 01:51 [From Florinef] unrinate hydromorphone [From Dilaudid] Allergy Unknown Verified 02/26/21 01:51 metoclopramide HCl Allergy "pseudo Verified 02/26/21 01:51 [From Reglan] parkinsons" metronidazole [From Flagyl] Allergy hives,upset Verified 02/26/21 01:51 stomach,migraine sucralfate [From Carafate] Allergy Swelling Verified 02/26/21 01:51 sulfamethoxazole Allergy Rash/Hives, Verified 02/26/21 01:51 [From Bactrim] NAUSEA,MIGR AINES,diarr hea trimethoprim [From Bactrim] Allergy Rash/Hives, Verified 02/26/21 01:51 NAUSEA,MIGR AINES,diarr hea topiramate [From Topamax] AdvReac Severe Nausea Verified 02/26/21 01:51 aspirin AdvReac STATES Verified 02/26/21 01:51 "STOMACH DOES NOT TOLERATE ASPIRIN" can take ecotrin ketamine AdvReac visual Verified 02/26/21 01:51 disturbance and halluciations for several days Metronidazole HCl AdvReac hives,upset Verified 02/26/21 01:51 [From Flagyl] stomach,migraine potassium clavulanate AdvReac Nausea & Verified 02/26/21 01:51 [From Augmentin] Vomiting,DIARRHEA,HIVES diflusnisol Allergy Rash/Hives Uncoded 02/26/21 01:51 oral morphine AdvReac Nausea & Uncoded 02/26/21 01:51 Vomiting & Diarrhea Review of Systems ROS Statement: Those systems with pertinent positive or pertinent negative responses have been documented in the HPI. ROS Other: All systems not noted in ROS Statement are negative. Past Medical History Past Medical History: Blood Disorder, Deep Vein Thrombosis (DVT), Fibromyalgia, GERD/Reflux, Hypertension, Osteoarthritis (OA), Respiratory Disorder, Thyroid Disorder Additional Past Medical History / Comment(s): MULTIPLE SCLEROSIS. ADRENAL INSUFFICIENCY & PITUITARY IMBALANCE .,ADRENAL INSUFFICIENCY, HYPOTENSION- STATES NORVASC STABILIZES HER BP. , VASOPRESSOR SYNCOPE, LEIDEN FACTOR V., IRON DEFICIENT ANEMIA, HYPOGLYCEMIA- STATES ACARBOSE USED FOR ADRENAL INSUFFICIENCY., CHRONIC NAUSEA, HX DVT LEGS, UTI'S, VARICOSE VEINS. Chronic nausea. DVT ADELINA LEGS, UTI'S. VARICOSE VEINS. , OSTEOPOROSIS, RAYNAUDS, INSOMNIA CHRONIC FATIGUE., HX OF GAUDENCIO MITCHELL.,ENVIRONMENTAL ALLERGIES., BACK PAIN, HX OF FALLS, INCONTINENT OF URINE- WEARS BRIEFS., DIFFICULTY SWALLOWING, STATES UP TO 9 DAYS WITH NO BM, BLOATING AND CHANGE IN STOOL., STATES SHE USES A CANE, WALKER AND WHEELCHAIR. History of Any Multi-Drug Resistant Organisms: None Reported Past Surgical History: Adenoidectomy, Back Surgery, Bariatric Surgery, Section, Cholecystectomy, Hernia Repair, Joint Replacement, Orthopedic Surgery, Tonsillectomy Additional Past Surgical History / Comment(s): ORIGINAL STOMACH STAPLING BY DR. WILSLON, RE-DONE BY DR. WING WITH "3/4" OF STOMACH REMOVED. ORTHO: Adelina feet, adelina hand surg-mult, NECK SURGERY x2, RIGHT ROTATOR CUFF, Lt hip replacement, LEFT knee replacement. Left eye surg (TEAR DUCT). Nasal surg. x2. Hernia repair with excess skin removed.back x 2, screw left foot/removal of neuroma, screws left hand thumb, right hip replacement X5 ., RIGHT femur spiral Fx with pins,rods,wires in femur and right hip replacement. September 2020 - lower espohagus and stomach muscle repair. Past Anesthesia/Blood Transfusion Reactions: Previous Problems w/ Anesthesia Additional Past Anesthesia/Blood Transfusion Reaction / Comment(s): States "unable to urinate after surgery for approx 4 days" (spinal anesthesia) . Past Psychological History: Anxiety, Depression, Panic Disorder Smoking Status: Never smoker, Unknown if ever smoked Past Alcohol Use History: None Reported Past Drug Use History: None Reported - Past Family History Mother Family Medical History: Cancer, Deep Vein Thrombosis (DVT), Pulmonary Embolus Additional Family Medical History / Comment(s): bladder cancer, kidney removed, multiple heart bypass surgeries, Father Family Medical History: Cancer, Deep Vein Thrombosis (DVT) Additional Family Medical History / Comment(s): CABG,colorectal CA Sister(s) Family Medical History: Pulmonary Embolus General Exam General appearance: alert, in no apparent distress Head exam: Present: atraumatic, normocephalic, normal inspection Eye exam: Present: normal appearance, PERRL, EOMI. Absent: scleral icterus, conjunctival injection, periorbital swelling ENT exam: Present: normal exam, mucous membranes moist Neck exam: Present: normal inspection. Absent: tenderness, meningismus, lymphadenopathy Respiratory exam: Present: wheezes. Absent: respiratory distress, rales, rhonchi, stridor Cardiovascular Exam: Present: regular rate, normal rhythm, normal heart sounds. Absent: systolic murmur, diastolic murmur, rubs, gallop, clicks GI/Abdominal exam: Present: soft, normal bowel sounds. Absent: distended, tenderness, guarding, rebound, rigid Extremities exam: Present: normal inspection, full ROM, normal capillary refill. Absent: tenderness, pedal edema, joint swelling, calf tenderness Back exam: Present: normal inspection Neurological exam: Present: alert, oriented X3, CN II-XII intact Psychiatric exam: Present: normal affect, normal mood Skin exam: Present: warm, dry, intact, normal color. Absent: rash Course Vital Signs 02/26/21 01:47 Temperature 98 F Pulse Rate 77 Respiratory 18 Rate Blood Pressure 96/65 O2 Sat by Pulse 98 Oximetry - Reevaluation(s) Reevaluation #1: 02/26/21 02:25 Medical record is reviewed 02/26/21 02:26 Poke with patient's transferring physician Reevaluation #2: 02/26/21 02:26 patient complaining of pain but has no shortness of breath 02/26/21 02:26 Reevaluation #3: 02/26/21 02:27 Patient symptoms are improved here in the - Consultations Consultation #1: Spoke with EM who are ok for admission Medical Decision Making - Medical Decision Making 70 female accepted in transfer for treatment for pneumonia, COPD exacerbation and chronic pain Disposition Clinical Impression: Chronic pain syndrome, Asthma, Community acquired pneumonia, Acute exacerbation of COPD with asthma Disposition: ADMITTED IP TO THIS HOSP Condition: Good Is patient prescribed a controlled substance at d/c from ED?: No Referrals: Mike Suh MD [Primary Care Provider] - 1-2 days
[2021-02-26] MEDS: SODIUM CHLORIDE 0.9% 1,000 ML IV SCH ×2 (03:47→12:48)
[2021-02-26] MEDS: LEVOFLOXACIN 750MG-D5W PMX 750 MG in DEXTROSE/WATER 1 150ML.BAG IVPB SCH ×2 (04:26→08:43)
[2021-02-26 06:46] LABS: Basophils % (A) 0 %; Eosinophils # (A) 0.1 k/uL (0-0.7); Eosinophils % (A) 1 %; HGB 10.3 gm/dL (11.4-16.0); Lymphocytes # (A) 1.7 k/uL (1.0-4.8); Lymphocytes % (A) 11 %; MCH 30.8 pg (25.0-35.0); MCHC 33.1 g/dL (31.0-37.0); MCV 93.1 fL (80.0-100.0); Mean Platelet Volume 6.4; Monocytes # (A) 0.3 k/uL (0-1.0); Monocytes % (A) 2 %; Neutrophils % (A) 85 %; Platelet Count 308 k/uL (150-450); RBC 3.33 m/uL (3.80-5.40); RDW 14.1 % (11.5-15.5); WBC 16.5 k/uL (3.8-10.6)
[2021-02-26 07:09] LABS: Albumin 2.5 g/dL (3.5-5.0); Calcium 8.6 mg/dL (8.4-10.2); Magnesium 2.1 mg/dL (1.6-2.3); Phosphorus 4.1 mg/dL (2.5-4.5); Total Bilirubin 0.3 mg/dL (0.2-1.3); Total Protein 4.6 g/dL (6.3-8.2)
[2021-02-26] MEDS ORDERED: POTASSIUM CHLORIDE ER 20 MEQ TAB.ER PO STA (10:19)
[2021-02-26] MEDS ORDERED: polyethylene glycoL 3350 17 GM POWD.PACK PO PRN (10:20)
[2021-02-26] MEDS ORDERED: HYDROCORTISONE 10 MG TAB PO SCH (11:00)
[2021-02-26] MEDS ORDERED: LEVOTHYROXINE 75 MCG TAB PO SCH (11:00)
[2021-02-26] MEDS: PANTOPRAZOLE 40 MG TABLET PO SCH ×2 (12:48→17:36)
[2021-02-26] MEDS: GABAPENTIN 300 MG CAP PO SCH ×2 (15:16→21:10)
[2021-02-26] MEDS: OXYBUTYNIN 10 MG TAB.ER.24 PO SCH ×2 (15:16→21:29)
--- NOTE | 2021-02-26 17:01 | P.HPIM ---
History of Present Illness H&P Date: 02/26/21 Chief Complaint: Generalized weakness and shortness of breath Patient is a 70-year-old female with a known history of fibromyalgia, atrial insufficiency, multiple sclerosis, factor V [place], iron deficiency anemia, chronic nausea and history of DVTs, renal mass, insomnia, chronic fatigue, chronic back pain, urinary incontinence, history of bariatric surgery and other multiple medical problems including anxiety/depression and panic. And claustrophobia presents to ER with the complains of increasing shortness of breath and weakness. Patient says that she is having increased short of breath. Denied any cough is from production. No fever no chills. No nausea vomiting abdominal pain. Denied any dysuria or hematuria. Chest x-ray was ordered Patient had Hellers myotomy due to achalasia. Patient is supposed to get a gastric emptying study. Laboratory data showed WBC 16.4 hemoglobin 10.3 and platelets 308 Sodium 134 potassium 3.0 chloride 96 bicarb 34 BUN 44 and creatinine 0.91., Troponin 0.012 and liver enzymes are not elevated. Review of Systems Constitutional: Patient denies any fever or chills . Generalized weakness and fatigue.. Abdomen: Patient denied nausea vomiting and diarrhea and abdominal pain. Cardiovascular: Patient denies any chest pain or short of breath no palpitations. Respiratory: patient denied any cough is from production. No shortness of breath Neurologic: Patient denied any numbness or tingling headache. Musculoskeletal: Patient denies any complaints of joint swelling or deformity. Skin: Negative Psychiatric: Negative Endocrine: No heat or cold intolerance. No recent weight gain. Genitourinary: No dysuria or hematuria. All other 14 point ROS negative except the above Past Medical History Past Medical History: Blood Disorder, Deep Vein Thrombosis (DVT), Fibromyalgia, GERD/Reflux, Hypertension, Osteoarthritis (OA), Respiratory Disorder, Thyroid Disorder Additional Past Medical History / Comment(s): MULTIPLE SCLEROSIS. ADRENAL INSUFFICIENCY & PITUITARY IMBALANCE, HYPOTENSION- STATES NORVASC STABILIZES HER BP. , VASOPRESSOR SYNCOPE, LEIDEN FACTOR V., IRON DEFICIENT ANEMIA, HYPOGLYCEMIA- STATES ACARBOSE USED FOR ADRENAL INSUFFICIENCY., CHRONIC NAUSEA, HX DVT LEGS, UTI'S, VARICOSE VEINS. Chronic nausea. DVT ADELINA LEGS, UTI'S. VARICOSE VEINS. , OSTEOPOROSIS, RAYNAUDS, INSOMNIA CHRONIC FATIGUE., HX OF GAUDENCIO MITCHELL.,ENVIRONMENTAL ALLERGIES., BACK PAIN, HX OF FALLS, INCONTINENT OF URINE- WEARS BRIEFS., DIFFICULTY SWALLOWING, STATES UP TO 9 DAYS WITH NO BM, BLOATING AND CHANGE IN STOOL., STATES SHE USES A CANE, WALKER AND WHEELCHAIR. History of Any Multi-Drug Resistant Organisms: None Reported Past Surgical History: Adenoidectomy, Back Surgery, Bariatric Surgery, Section, Cholecystectomy, Hernia Repair, Joint Replacement, Orthopedic Surgery, Tonsillectomy Additional Past Surgical History / Comment(s): ORIGINAL STOMACH STAPLING BY DR. WILLSON, RE-DONE BY DR. WING WITH "3/4" OF STOMACH REMOVED. ORTHO: Adelina feet, adelina hand surg-mult, NECK SURGERY x2, RIGHT ROTATOR CUFF, Lt hip replacement, LEFT knee replacement. Left eye surg (TEAR DUCT). Nasal surg. x2. Hernia repair with excess skin removed.back x 2, screw left foot/removal of neuroma, screws left hand thumb, right hip replacement X5 ., RIGHT femur spiral Fx with pins,rods,wires in femur and right hip replacement. September 2020 - lower espohagus and stomach muscle repair. Past Anesthesia/Blood Transfusion Reactions: Previous Problems w/ Anesthesia Additional Past Anesthesia/Blood Transfusion Reaction / Comment(s): States "unable to urinate after surgery for approx 4 days" (spinal anesthesia) . Past Psychological History: Anxiety, Depression, Panic Disorder Additional Psychological History / Comment(s): clausterphobia. Smoking Status: Never smoker Past Alcohol Use History: None Reported Past Drug Use History: None Reported - Past Family History Mother Family Medical History: Cancer, Deep Vein Thrombosis (DVT), Pulmonary Embolus Additional Family Medical History / Comment(s): bladder cancer, kidney removed, multiple heart bypass surgeries, Father Family Medical History: Cancer, Deep Vein Thrombosis (DVT) Additional Family Medical History / Comment(s): CABG,colorectal CA Sister(s) Family Medical History: Pulmonary Embolus Medications and Allergies Home Medications Medication Instructions Recorded Confirmed Type Montelukast [Singulair] 10 mg PO HS 11/04/13 02/26/21 History Ondansetron HCl [Zofran] 8 mg PO TID 06/29/14 02/26/21 History Hydrocortisone [Cortef] 30 mg PO DAILY 09/28/15 02/26/21 History Fluticasone Nasal [place] [Flonase 1 spr EA NOSTRIL BID 08/20/16 02/26/21 History Nasal [place]] Folic Acid 1.6 mg PO BID 06/03/17 02/26/21 History Furosemide [Lasix] 40 mg PO BID 06/03/17 02/26/21 History Multivitamin [Multivitamins Adult 2 tab PO DAILY 06/03/17 02/26/21 History Gummies] Acarbose [Precose] 25 mg PO TID 05/26/18 02/26/21 History Cyanocobalamin (Vitamin B-12) 10,000 mcg PO BID 05/26/18 02/26/21 History [Vitamin B-12] Gabapentin [Neurontin] 300 mg PO TID 05/26/18 02/26/21 History Levothyroxine Sodium [Synthroid] 75 mcg PO DAILY 05/26/18 02/26/21 History Omeprazole [PriLOSEC] 40 mg PO BID 05/26/18 02/26/21 History Zinc 100 mg PO BID 05/26/18 02/26/21 History Diclofenac Epolamine [Flector 1.3% 2 patch TRANSDERM Q12H 11/30/19 02/26/21 History Patch] Loratadine [Claritin] 10 mg PO DAILY 11/30/19 02/26/21 History Potassium Chloride ER [K-Dur 20] 20 meq PO DAILY 11/30/19 02/26/21 History Spironolactone [Aldactone] 25 mg PO BID 11/30/19 02/26/21 History Baclofen 10 mg PO TID 11/29/20 02/26/21 History Doxycycline Hyclate 100 mg PO BID 11/29/20 02/26/21 History Glucagon [Baqsimi] 1 spray NASAL ONCE PRN 11/29/20 02/26/21 History HYDROcodone/APAP 10-325MG [[place] 1 tab PO Q6HR PRN 11/29/20 02/26/21 History 10-325] Ipratropium [place] [Ipratropium 2 sprays EA NOSTRIL BID 11/29/20 02/26/21 History [place] 0.03%] Naloxegol Oxalate [Movantik] 25 mg PO DAILY 11/29/20 02/26/21 History Naloxone HCl [Narcan] 4 mg NASAL ONCE PRN 11/29/20 02/26/21 History Pyridoxine HCl (Vitamin B6) 200 mg PO BID 11/29/20 02/26/21 History [Vitamin B-6] Bioflex 1 tab PO BID 02/26/21 02/26/21 History Biotin 20,000 mcg PO BID 02/26/21 02/26/21 History Calcium Carbonate [Calcium] 600 mg PO BID 02/26/21 02/26/21 History Calcium Carbonate [Tums] 1,000 mg PO DAILY 02/26/21 02/26/21 History Cholecalciferol (Vitamin D3) 250 mcg PO BID 02/26/21 02/26/21 History [Vitamin D3 (125 MCG = 5,000 IU)] Hydrocortisone [Cortef] 20 mg PO HS 02/26/21 02/26/21 History Lidocaine 5% Patch [Lidoderm] 1 patch TOPICAL DAILY 02/26/21 02/26/21 History Oxybutynin Chloride [Oxybutynin 10 mg PO TID 02/26/21 02/26/21 History Chloride ER] Polyethylene Glycol 3350 [Miralax] 17 gm PO HS PRN 02/26/21 02/26/21 History Vitamin A [Vitamin A (8,000 Units 4,800 mcg PO BID 02/26/21 02/26/21 History = 2,400 MCG)] diphenhydrAMINE HCL [Benadryl] 12.5 mg PO HS PRN 02/26/21 02/26/21 History Allergies Allergy/AdvReac Type Severity Reaction Status Date / Time ergotamine tartrate Allergy Anaphylaxis Verified 02/26/21 09:28 [From Cafergot] ,SOB hydromorphone [From Dilaudid] Allergy Unknown Verified 02/26/21 09:28 metoclopramide HCl Allergy "pseudo Verified 02/26/21 09:28 [From Reglan] parkinsons" sucralfate [From Carafate] Allergy Swelling Verified 02/26/21 09:28 topiramate [From Topamax] AdvReac Severe Nausea Verified 02/26/21 09:28 amoxicillin trihydrate AdvReac Nausea & Verified 02/26/21 09:28 [From Augmentin] Vomiting,DIARRHEA,HIVES aspirin AdvReac STATES Verified 02/26/21 09:28 "STOMACH DOES NOT TOLERATE ASPIRIN" can take ecotrin ciprofloxacin HCl AdvReac Rash/Hives, Verified 02/26/21 09:28 [From Cipro] NAUSEA/VOMITING/DIARRHEA clarithromycin [From Biaxin] AdvReac Rash/Hives, Verified 02/26/21 09:28 NAUSEA/VOMI TING/DIARRH EA diflunisal [From Dolobid] AdvReac Rash/Hives,upset Verified 02/26/21 09:28 stomach fludrocortisone AdvReac unable to Verified 02/26/21 09:28 [From Florinef] unrinate ketamine AdvReac visual Verified 02/26/21 09:28 disturbance and halluciations for several days metronidazole [From Flagyl] AdvReac hives,upset Verified 02/26/21 09:28 stomach,migraine Metronidazole HCl AdvReac hives,upset Verified 02/26/21 09:28 [From Flagyl] stomach,migraine potassium clavulanate AdvReac Nausea & Verified 02/26/21 09:28 [From Augmentin] Vomiting,DIARRHEA,HIVES sulfamethoxazole AdvReac Rash/Hives, Verified 02/26/21 09:28 [From Bactrim] NAUSEA,MIGR AINES,diarr hea trimethoprim [From Bactrim] AdvReac Rash/Hives, Verified 02/26/21 09:28 NAUSEA,MIGR AINES,diarr hea diflusnisol AdvReac Rash/Hives Uncoded 02/26/21 09:28 oral morphine AdvReac Nausea & Uncoded 02/26/21 01:51 Vomiting & Diarrhea Physical Exam Vitals: Vital Signs Temp Pulse Pulse Resp BP BP Pulse Ox 02/26/21 08:00 97.7 F 67 17 91/57 99 02/26/21 02:20 98.1 F 83 16 79/52 95 02/26/21 01:47 98 F 77 18 96/65 98 Intake and Output 02/25/21 02/26/21 02/26/21 22:59 06:59 14:59 Intake Total 300 Balance 300 Intake: Intake, IV Titration 300 Amount Levofloxacin 750Mg-D5w 150 Pmx 750 mg In Dextrose/ Water 1 150ml.bag @ 100 mls/hr IVPB DAILY [facility] Rx# :[id number] Sodium Chloride 0.9% 1, 100 000 ml @ 100 mls/hr IV . Q10H [facility] Rx#:[id number] cefTRIAXone 2 gm In 50 Sodium Chloride 0.9% 50 ml @ 100 mls/hr IVPB Q24H [facility] Rx#:[id number] Other: Voiding Method Toilet Diaper Weight 52.163 kg PHYSICAL EXAMINATION: Patient is lying in the bed comfortably, no acute distress, awake alert and oriented.. HEENT: Normocephalic. Neck is supple. Pupils reactive. Nostrils clear. Oral cavity is moist. Neck reveals no JVD, carotid bruits, or thyromegaly. CHEST EXAMINATION: Trachea is central. Symmetrical expansion. Bibasilar dim inished sounds. Lung stein clear to auscultation and percussion. CARDIAC: Normal S1, S2 with no gallops. No murmurs ABDOMEN: Soft. Distended/bloated. Nontender no guarding or rigidity. Bowel so unds normal. No organomegaly. No abdominal bruits. Extremities: reveal no edema. No clubbing or cyanosis Neurologically awake, alert, oriented x3 with well-coordinated movements. No focal deficits noted Skin: No rash or skin lesions. Psychiatric: Coperative. Nonsuicidal, anxious. Musculoskeletal: No joint swelling or deformity. Normal range of motion. Results CBC & Chem 7: 02/26/21 06:09 02/26/21 06:00 Labs: Abnormal Lab Results - Last 24 Hours (Table) 02/26/21 02/26/21 Range/Units 06:00 06:09 WBC 16.5 H (3.8-10.6) k/uL RBC 3.33 L (3.80-5.40) m/uL Hgb 10.3 L (11.4-16.0) gm/dL Hct 31.0 L (34.0-46.0) % Neutrophils # 14.0 H (1.3-7.7) k/uL Sodium 134 L (137-145) mmol/L Potassium 3.0 L (3.5-5.1) mmol/L Chloride 96 L (98-107) mmol/L Carbon Dioxide 34 H (22-30) mmol/L BUN 44 H (7-17) mg/dL AST 42 H (14-36) U/L Total Protein 4.6 L (6.3-8.2) g/dL Albumin 2.5 L (3.5-5.0) g/dL Thrombosis Risk Factor Assmnt - DVT/VTE Prophylaxis DVT/VTE Prophylaxis: Pharmacologic Prophylaxis ordered - Choose All That Apply Any of the Below Risk Factors Present?: Yes Each Factor Represents 1 point: Medical pt on bed rest, Serious lung disease incl. pneumonia (< 1month), Varicose veins Other Risk Factors: Yes Each Risk Factor Represents 2 Points: Age 61-74 years Each Risk Factor Represents 3 Points: Positive Factor V Leiden, Family history of DVT/PE Thrombosis Risk Factor Assessment Total Risk Factor Score: 11 Thrombosis Risk Factor Assessment Level: High Risk Assessment and Plan Assessment: Generalized weakness and lethargy E to dehydration and volume depletion and infection. Community-acquired pneumonia Sepsis secondary to above Mild acute exacerbation of COPD/asthma Worsening shortness of breath Chronic pain syndrome Adrenal insufficiency Hypotension History of multiple sclerosis Recent history ofHellers myotomy due to achalasia and supposed to get a gastric emptying study History of Juan Ram[place] Y gastric bypass surgery History of urinary tract infections Urinary incontinence Chronic fatigue and insomnia Leiden factor V Jeanne Patel anemia Anxiety/depression DVT prophylaxis with heparin subcu Plan: Patient will be current on antibiotics in the form of ceftriaxone and Levaquin. Follow-up repeat chest x-ray and urinalysis. Follow-up culture reports. Patient will be continued on breathing treatments. Currently saturating well on room air. Continue the home medications including hydrocortisone for adrenal insufficiency. Continue with home medications as required at this time. Continue with IV hydration and Lasix on hold. Replace potassium. Follow-up CBC and BMP tomorrow. Prognosis is guarded with multiple medical problems and comorbid conditions. Time with Patient: Greater than 30
[2021-02-26] MEDS ORDERED: MONTELUKAST 10 MG TAB PO SCH (21:00)
[2021-02-26] MEDS ORDERED: HYDROCORTISONE 20 MG TAB PO SCH (21:00)
[2021-02-26] MEDS ORDERED: ACARBOSE 25 MG TAB PO SCH (22:00)
[2021-02-27] MEDS: HEPARIN SODIUM,PORCINE/PF 5,000 UNIT/0.5 ML SYRINGE SQ SCH ×3 (00:48→15:11)
[2021-02-27] MEDS: LEVOTHYROXINE 75 MCG TAB PO SCH (00:48)
[2021-02-27] MEDS: SODIUM CHLORIDE 0.9% 1,000 ML IV SCH ×3 (00:50→21:30)
[2021-02-27 01:07] LABS: Appearance,Urine Clear (Clear); Bilirubin,Urine Negative (Negative); Blood,Urine Negative (Negative); Color,Urine Light Yellow; Glucose,Urine (UA) Negative (Negative); Ketones,Urine Negative (Negative); Leukocyte Esterase,Urine Negative (Negative); Nitrite,Urine Negative (Negative); Protein,Urine Negative (Negative); Specific Gravity,Urine 1.009 (1.001-1.035); Urobilinogen,Urine <2.0 mg/dL (<2.0)
[2021-02-27] MEDS: HYDROcodone/APAP 10-325MG 1 EACH TAB PO PRN ×4 (03:12→21:29)
[2021-02-27] MEDS ORDERED: LEVOTHYROXINE 75 MCG TAB PO SCH (06:30)
--- NOTE | 2021-02-27 07:08 | XR ---
EXAMINATION TYPE: XR chest 2V DATE OF EXAM: 02/27/2021 COMPARISON: NONE HISTORY: Pneumonia. Fever. TECHNIQUE: Frontal and lateral views of the chest are obtained. FINDINGS: The osseous structures are demineralized. Extensive surgical change to the cervical spine is noted. Old left lateral mid rib fractures. Partial visualization of surgical change in the lumbar spine. Surgical clips noted likely from cholecystectomy. Reticular interstitial changes bilaterally with patchy left midlung opacity. No pleural effusion or p neumothorax seen bilaterally. Cardiac silhouette size within normal limits. Epigastric region show ad ditional surgical clips. IMPRESSION: Mild chronic reticular interstitial changes felt present. Developing left mid lung acute infiltrate suspected. Progress study advised.
[2021-02-27] MEDS ORDERED: HYDROCORTISONE 10 MG TAB PO SCH (07:30)
[2021-02-27] MEDS: GABAPENTIN 300 MG CAP PO SCH ×3 (07:31→17:01)
[2021-02-27] MEDS: ACARBOSE 25 MG TAB PO SCH ×3 (07:34→17:01)
[2021-02-27] MEDS: PANTOPRAZOLE 40 MG TABLET PO SCH (07:34)
[2021-02-27] MEDS: OXYBUTYNIN 10 MG TAB.ER.24 PO SCH ×2 (07:35→17:02)
[2021-02-27] MEDS: polyethylene glycoL 3350 17 GM POWD.PACK PO SCH (07:37)
[2021-02-27] MEDS ORDERED: LORATADINE 10 MG TAB PO SCH (09:00)
[2021-02-27] MEDS: POTASSIUM CHLORIDE ER 20 MEQ TAB.ER PO SCH (09:16)
[2021-02-27] MEDS ORDERED: diphenhydrAMINE 25 MG CAP PO ONE ×2 (10:52→19:00)
[2021-02-27 11:11] LABS: Basophils # (A) 0.03 X 10*3/uL (0.00-0.10); Basophils % (A) 0.2 %; Eosinophils # (A) 0.19 X 10*3/uL (0.04-0.35); Eosinophils % (A) 1.5 %; HCT 37.8 % (37.2-46.3); HGB 11.4 g/dL (12.0-15.0); Lymphocytes # (A) 1.98 X 10*3/uL (0.90-5.00); Lymphocytes % (A) 15.1 %; MCH 28.9 pg (27.0-32.0); MCHC 30.2 g/dL (32.0-37.0); MCV 95.7 fL (80.0-97.0); Mean Platelet Volume 9.6 fL (9.5-12.2); Monocytes # (A) 0.63 X 10*3/uL (0.20-1.00); Monocytes % (A) 4.8 %; Neutrophils # (A) 10.18 X 10*3/uL (1.80-7.70); Neutrophils % (A) 77.9 %; Platelet Count 281 X 10*3/uL (140-440); RBC 3.95 X 10*6/uL (4.10-5.20); RDW 13.7 % (11.5-14.5); WBC 13.08 X 10*3/uL (4.50-10.00)
[2021-02-27 12:35] LABS: African American GFR (CKD) 102.5 (60.0-200.0); Albumin 3.4 g/dL (3.80-4.90); Albumin/Globulin Ratio 1.62 (1.60-3.17); Anion Gap 8.9 mmol/L (4.00-12.00); BUN/Creat Ratio 28.57 Ratio (12.00-20.00); Calcium 8.9 mg/dL (8.7-10.3); Carbon Dioxide 29.1 mmol/L (21.6-31.8); Globulin 2.1 g/dL (1.6-3.3); Non-African American GFR(CKD) 88.4 (60.0-200.0); Total Bilirubin 0.2 mg/dL (0.2-1.2); Total Protein 5.5 g/dL (6.2-8.2)
[2021-02-27] MEDS ORDERED: HYDROCORTISONE 20 MG TAB PO SCH (17:30)
[2021-02-27] MEDS: HYDROCORTISONE SUCCINATE 100 MG/2 ML VIAL IV SCH (18:18)
--- NOTE | 2021-02-27 18:22 | P.PN ---
Progress Note - Text Progress Note Date: 02/27/21 Chief Complaint: Generalized weakness and shortness of breath Patient is a 70-year-old female with a known history of fibromyalgia, atrial insufficiency, multiple sclerosis, factor V Leyden, iron deficiency anemia, chronic nausea and history of DVTs, renal mass, insomnia, chronic fatigue, chronic back pain, urinary incontinence, history of bariatric surgery and other multiple medical problems including anxiety/depression and panic. And claustrophobia presents to ER with the complains of increasing shortness of breath and weakness. Patient says that she is having increased short of breath. Denied any cough is from production. No fever no chills. No nausea vomiting abdominal pain. Denied any dysuria or hematuria. Chest x-ray was ordered Patient had Hellers myotomy due to achalasia. Patient is supposed to get a gastric emptying study. Laboratory data showed WBC 16.4 hemoglobin 10.3 and platelets 308 Sodium 134 potassium 3.0 chloride 96 bicarb 34 BUN 44 and creatinine 0.91., Troponin 0.012 and liver enzymes are not elevated. Admitted with pneumonia, sepsis, exacerbation of asthma. 02/27/2021: Dark little breakfast. Some lunch. tired and weak. Slight cough. Short of breath. Feeling run down Review of systems: Was done for constitutional, cardiovascular, GI, pulmonary. relevant finding as above Active Medications Acarbose (Acarbose 25 Mg Tab) 25 mg PO TID-W/MEALS [facility] Last Admin: 02/27/21 17:01 Dose: 25 mg Documented by: Hydrocodone Bitart/Acetaminophen (Hydrocodone/Apap 10-325mg 1 Each Tab) 1 each PO Q6HR PRN PRN Reason: Pain Last Admin: 02/27/21 15:10 Dose: 1 each Documented by: Albuterol/Ipratropium (Ipratropium-Albuterol 3 Ml Neb) 3 ml INHALATION RT-Q4H PRN PRN Reason: shortness of breath Last Admin: 02/26/21 16:01 Dose: 3 ml Documented by: Cefdinir (Cefdinir 300 Mg Cap) 300 mg PO BID TINY Stop: 03/01/21 23:59 Gabapentin (Gabapentin 300 Mg Cap) 300 mg PO TID-W/MEALS TINY Last Admin: 02/27/21 17:01 Dose: 300 mg Documented by: Heparin Sodium (Porcine) (Heparin Sodium,Porcine/Pf 5,000 Unit/0.5 Ml Syringe) 5,000 unit SQ Q8HR [facility] Last Admin: 02/27/21 15:11 Dose: 5,000 unit Documented by: Hydrocortisone (Hydrocortisone 20 Mg Tab) 20 mg PO DAILY@1730 [facility] Last Admin: 02/27/21 17:02 Dose: 20 mg Documented by: Hydrocortisone (Hydrocortisone 10 Mg Tab) 30 mg PO DAILY@0730 [facility] Last Admin: 02/27/21 07:32 Dose: 30 mg Documented by: Sodium Chloride (Saline 0.9%) 1,000 mls @ 100 mls/hr IV .Q10H [facility] Last Admin: 02/27/21 12:07 Dose: Not Given Documented by: Levofloxacin (Levofloxacin 750 Mg Tab) 750 mg PO Q48H [facility] Levothyroxine Sodium (Levothyroxine 75 Mcg Tab) 75 mcg PO DAILY@0100 [facility] Last Admin: 02/27/21 00:48 Dose: 75 mcg Documented by: Loratadine (Loratadine 10 Mg Tab) 10 mg PO DAILY [facility] Last Admin: 02/27/21 09:16 Dose: 10 mg Documented by: Miscellaneous Information (Pneumonia Protocol Utilized 1 Each [facility]) 1 each PO ONCE PRN PRN Reason: Per Protocol Montelukast Sodium (Montelukast 10 Mg Tab) 10 mg PO [facility] Oxybutynin Chloride (Oxybutynin 10 Mg Tab.Er.24) 10 mg PO BID-W/MEALS [facility] Last Admin: 02/27/21 17:02 Dose: 10 mg Documented by: Pantoprazole Sodium (Pantoprazole 40 Mg Tablet) 40 mg PO AC-BRKFST [facility] Last Admin: 02/27/21 07:34 Dose: 40 mg Documented by: Polyethylene Glycol (Polyethylene Glycol 3350 17 Gm Powd.Pack) 17 gm PO AC- BRKFST [facility] Last Admin: 02/27/21 07:37 Dose: 17 gm Documented by: Potassium Chloride (Potassium Chloride Er 20 Meq Tab.Er) 20 meq PO DAILY [facility] Last Admin: 02/27/21 09:16 Dose: 20 meq Documented by: On examination: VITAL SIGNS: 98.4, 73, 18, 131/77, 100% room air GENERAL APPEARANCE: Reclining in bed, awake, tired. HEENT: Normal external appearance of nose and ear. Oral cavity normal EYES: Pupils equal. Conjunctiva normal. NECK: JVD not raised. Mass not palpable. RESPIRATORY: Respiratory effort normal. Decreased breath sounds CARDIOVASCULAR: First and second sounds normal. No edema. ABDOMEN: Soft. Liver and spleen not palpable. No tenderness. No mass palpable. PSYCHIATRY: Alert and oriented x3. Mood and affect normal. INVESTIGATIONS, reviewed in the clinical context: WBC 13 hemoglobin 11.4 platelets 281 potassium 4 creatinine 0.7, pro calcitonin 1.6 Chest x-ray film personally reviewed by me-left midlung infiltrate, possibly chronic changes additionally Admitting labs: White count 16.5 hemoglobin 10.3 creatinine 0.912 and 44 UA negative Assessment and plan: -Left middle zone pneumonia, consider gram-negative organism Omnicef 300 mg twice a day -Increasing medical asthenia from pneumonia and could be contribution from cortisone congestive insufficiency With acute infection Add IV hydrocortisone 50 mg every 8. Hold Cortef for now -Chronic fibromyalgia [place] 10 when necessary -Hypothyroid Synthroid 75 g daily -GERD Protonix 40 mg daily -Primary osteoarthritis Pain medications as needed -Chronic adrenal insufficiency Start IV hydrocortisone 50 mg every 8 for underlying infection -Laden factor V deficiency -Ray'nauds phenomenon -Chronic insomnia from medical problems Add melatonin -Chronic fatigue syndrome -Chronic gait dysfunction At the baseline uses a cane and walker and wheelchair. Fall precautions -History of partial gastrectomy, But normocytic anemia Check B12, iron levels -Recent Hellers myotomy, due to achalasia DC Levaquin. Continue Omnicef. IV fluids. Encourage oral intake. Change to IV hydrocortisone 50 mg every 8. Increase activity as tolerated. Check B12, iron studies
[2021-02-27] MEDS ORDERED: MONTELUKAST 10 MG TAB PO SCH (21:00)
[2021-02-27] MEDS ORDERED: MELATONIN 3 MG TABLET PO SCH (21:00)
[2021-02-28] MEDS: LEVOTHYROXINE 75 MCG TAB PO SCH (01:25)
[2021-02-28] MEDS: HYDROCORTISONE SUCCINATE 100 MG/2 ML VIAL IV SCH ×2 (01:25→08:10)
[2021-02-28] MEDS: HEPARIN SODIUM,PORCINE/PF 5,000 UNIT/0.5 ML SYRINGE SQ SCH ×2 (01:26→07:41)
[2021-02-28] MEDS: HYDROcodone/APAP 10-325MG 1 EACH TAB PO PRN ×3 (04:07→15:51)
[2021-02-28] MEDS ORDERED: LEVOFLOXACIN 750 MG TAB PO SCH (06:00)
[2021-02-28 06:44] VITALS: RESP 16
[2021-02-28] MEDS: ACARBOSE 25 MG TAB PO SCH ×2 (07:38→11:54)
[2021-02-28] MEDS: OXYBUTYNIN 10 MG TAB.ER.24 PO SCH (07:40)
[2021-02-28] MEDS: GABAPENTIN 300 MG CAP PO SCH ×2 (07:40→11:55)
[2021-02-28] MEDS: PANTOPRAZOLE 40 MG TABLET PO SCH (07:40)
[2021-02-28] MEDS: polyethylene glycoL 3350 17 GM POWD.PACK PO SCH (07:41)
[2021-02-28] MEDS: POTASSIUM CHLORIDE ER 20 MEQ TAB.ER PO SCH (08:03)
[2021-02-28] MEDS ORDERED: CEFDINIR 300 MG CAP PO SCH (09:00)
[2021-02-28] MEDS: SODIUM CHLORIDE 0.9% 1,000 ML IV SCH ×2 (09:38→14:18)
[2021-02-28 10:51] LABS: % Iron Saturation 16.94 (12.00-45.00)
[2021-02-28 11:00] LABS: Ferritin 248.3 ng/mL (10.0-291.0)
[2021-02-28 12:07] VITALS: BP 139/83; PULSE 70; TEMP 98.8
--- NOTE | 2021-02-28 21:20 | P.DS ---
Providers Date of admission: 02/26/21 02:20 Expected date of discharge: 02/28/21 Attending physician: Anthony Sánchez Primary care physician: [facility] Course: Chief Complaint: Generalized weakness and shortness of breath Patient is a 70-year-old female, patient of Dr. Suh, with a known history of fibromyalgia, atrial insufficiency, multiple sclerosis, factor V Leyden, iron deficiency anemia, chronic nausea and history of DVTs, renal mass, insomnia, chronic fatigue, chronic back pain, urinary incontinence, history of bariatric surgery and other multiple medical problems including anxiety/depression and panic. And claustrophobia presents to ER with the complains of increasing shortness of breath and weakness. Patient says that she is having increased short of breath. Denied any cough is from production. No fever no chills. No nausea vomiting abdominal pain. Denied any dysuria or hematuria. Chest x-ray was ordered Patient had Hellers myotomy due to achalasia. Patient is supposed to get a gastric emptying study. Laboratory data showed WBC 16.4 hemoglobin 10.3 and platelets 308 Sodium 134 potassium 3.0 chloride 96 bicarb 34 BUN 44 and creatinine 0.91., Troponin 0.012 and liver enzymes are not elevated. Admitted with pneumonia, sepsis, exacerbation of asthma. 02/27/2021: had little breakfast. Some lunch. tired and weak. Slight cough. Short of breath. Feeling run down 02/28/2021: Feeling better. Weakness better. Was put on IV hydrocortisone yesterday. Patient wanted like to go home. Will be changed back to oral dose of Cortef. Complete an oral course of antibiotic. Several questions answered. Patient diuretics will be cut back. Told to cut back on fluid intake. Discussion and discharge planning more than 35 minutes Review of systems: Was done for constitutional, cardiovascular, GI, pulmonary. relevant finding as above On examination: VITAL SIGNS: 98.8, 70, 16, 139/83, 95% room air GENERAL APPEARANCE: Sitting up in a chair, looks better. HEENT: Normal external appearance of nose and ear. Oral cavity normal EYES: Pupils equal. Conjunctiva normal. NECK: JVD not raised. Mass not palpable. RESPIRATORY: Respiratory effort normal. Decreased breath sounds CARDIOVASCULAR: First and second sounds normal. No edema. ABDOMEN: Soft. Liver and spleen not palpable. No tenderness. No mass palpable. PSYCHIATRY: Alert and oriented x3. Mood and affect normal. INVESTIGATIONS, reviewed in the clinical context: Vitamin B12 1070, TIBC 242% saturation 16.9 WBC 13 hemoglobin 11.4 platelets 281 potassium 4 creatinine 0.7, pro calcitonin 1.6 Chest x-ray film personally reviewed by me-left midlung infiltrate, possibly chronic changes additionally Admitting labs: White count 16.5 hemoglobin 10.3 creatinine 0.912 and 44 UA negative Assessment and plan: -Left middle zone pneumonia, consider gram-negative organism: Clinically improved Omnicef 300 mg twice a day -Increasing medical asthenia from pneumonia and could be contribution from cortisone congestive insufficiency With acute infection: Better Add IV hydrocortisone 50 mg every 8. We'll discharge him home because of Cortef -Chronic fibromyalgia [place] 10 when necessary -Hypothyroid Synthroid 75 g daily -GERD Protonix 40 mg daily -Primary osteoarthritis Pain medications as needed -Chronic adrenal insufficiency Changeover to home dose of Cortef -Laden factor V deficiency -Ray'nauds phenomenon -Chronic insomnia from medical problems Add melatonin -Chronic fatigue syndrome -Chronic gait dysfunction At the baseline uses a cane and walker and wheelchair. Fall precautions -History of partial gastrectomy, But normocytic anemia Check B12, iron levels -Recent Hellers myotomy, due to achalasia Disposition: Home Plan - Discharge Summary Discharge Rx Participant: Yes New Discharge Prescriptions: New Melatonin 3 mg PO HS #30 tablet Cefdinir [Omnicef] 300 mg PO BID #10 cap Continue Montelukast [Singulair] 10 mg PO HS Ondansetron HCl [Zofran] 8 mg PO TID Hydrocortisone [Cortef] 30 mg PO DAILY Fluticasone Nasal [place] [Flonase Nasal [place]] 1 spr EA NOSTRIL BID Folic Acid 1.6 mg PO BID Multivitamin [Multivitamins Adult Gummies] 2 tab PO DAILY Gabapentin [Neurontin] 300 mg PO TID Levothyroxine Sodium [Synthroid] 75 mcg PO DAILY Zinc 100 mg PO BID Omeprazole [PriLOSEC] 40 mg PO BID Cyanocobalamin (Vitamin B-12) [Vitamin B-12] 10,000 mcg PO BID Acarbose [Precose] 25 mg PO TID Diclofenac Epolamine [Flector 1.3% Patch] 2 patch TRANSDERM Q12H Naloxegol Oxalate [Movantik] 25 mg PO DAILY Naloxone HCl [Narcan] 4 mg NASAL ONCE PRN PRN Reason: OVERDOSE Polyethylene Glycol 3350 [Miralax] 17 gm PO HS PRN PRN Reason: Constipation Hydrocortisone [Cortef] 20 mg PO HS Bioflex 1 tab PO BID Pyridoxine HCl (Vitamin B6) [Vitamin B-6] 200 mg PO BID HYDROcodone/APAP 10-325MG [[place] 10-325] 1 tab PO Q6HR PRN PRN Reason: Pain Ipratropium [place] [Ipratropium [place] 0.03%] 2 sprays EA NOSTRIL BID Glucagon [Baqsimi] 1 spray NASAL ONCE PRN PRN Reason: Hypoglycemia Baclofen 10 mg PO TID Biotin 20,000 mcg PO BID Vitamin A [Vitamin A (8,000 Units = 2,400 MCG)] 4,800 mcg PO BID Cholecalciferol (Vitamin D3) [Vitamin D3 (125 MCG = 5,000 IU)] 250 mcg PO BID Lidocaine 5% Patch [Lidoderm 5% Patch] 1 patch TOPICAL DAILY Oxybutynin Chloride [Oxybutynin Chloride ER] 10 mg PO TID Calcium Carbonate [Calcium] 600 mg PO BID Changed Spironolactone [Aldactone] 25 mg PO DAILY #0 Discontinued Furosemide [Lasix] 40 mg PO BID Potassium Chloride ER [K-Dur 20] 20 meq PO DAILY Loratadine [Claritin] 10 mg PO DAILY Doxycycline Hyclate 100 mg PO BID Calcium Carbonate [Tums] 1,000 mg PO DAILY diphenhydrAMINE HCL [Benadryl] 12.5 mg PO HS PRN PRN Reason: Allergy Symptoms Discharge Medication List Montelukast [Singulair] 10 mg PO HS 11/04/13 [History] Ondansetron HCl [Zofran] 8 mg PO TID 06/29/14 [History] Hydrocortisone [Cortef] 30 mg PO DAILY 09/28/15 [History] Fluticasone Nasal [place] [Flonase Nasal [place]] 1 spr EA NOSTRIL BID 08/20/16 [History] Folic Acid 1.6 mg PO BID 06/03/17 [History] Multivitamin [Multivitamins Adult Gummies] 2 tab PO DAILY 06/03/17 [History] Acarbose [Precose] 25 mg PO TID 05/26/18 [History] Cyanocobalamin (Vitamin B-12) [Vitamin B-12] 10,000 mcg PO BID 05/26/18 [History] Gabapentin [Neurontin] 300 mg PO TID 05/26/18 [History] Levothyroxine Sodium [Synthroid] 75 mcg PO DAILY 05/26/18 [History] Omeprazole [PriLOSEC] 40 mg PO BID 05/26/18 [History] Zinc 100 mg PO BID 05/26/18 [History] Diclofenac Epolamine [Flector 1.3% Patch] 2 patch TRANSDERM Q12H 11/30/19 [History] Baclofen 10 mg PO TID 11/29/20 [History] Glucagon [Baqsimi] 1 spray NASAL ONCE PRN 11/29/20 [History] HYDROcodone/APAP 10-325MG [[place] 10-325] 1 tab PO Q6HR PRN 11/29/20 [History] Ipratropium [place] [Ipratropium [place] 0.03%] 2 sprays EA NOSTRIL BID 11/29/20 [History] Naloxegol Oxalate [Movantik] 25 mg PO DAILY 11/29/20 [History] Naloxone HCl [Narcan] 4 mg NASAL ONCE PRN 11/29/20 [History] Pyridoxine HCl (Vitamin B6) [Vitamin B-6] 200 mg PO BID 11/29/20 [History] Bioflex 1 tab PO BID 02/26/21 [History] Biotin 20,000 mcg PO BID 02/26/21 [History] Calcium Carbonate [Calcium] 600 mg PO BID 02/26/21 [History] Cholecalciferol (Vitamin D3) [Vitamin D3 (125 MCG = 5,000 IU)] 250 mcg PO BID 02/26/21 [History] Hydrocortisone [Cortef] 20 mg PO HS 02/26/21 [History] Lidocaine 5% Patch [Lidoderm 5% Patch] 1 patch TOPICAL DAILY 02/26/21 [History] Oxybutynin Chloride [Oxybutynin Chloride ER] 10 mg PO TID 02/26/21 [History] Polyethylene Glycol 3350 [Miralax] 17 gm PO HS PRN 02/26/21 [History] Vitamin A [Vitamin A (8,000 Units = 2,400 MCG)] 4,800 mcg PO BID 02/26/21 [History] Cefdinir [Omnicef] 300 mg PO BID #10 cap 02/28/21 [Rx] Melatonin 3 mg PO HS #30 tablet 02/28/21 [Rx] Spironolactone [Aldactone] 25 mg PO DAILY #0 02/28/21 [Rx] Follow up Appointment(s)/Referral(s): Mike Suh MD [Primary Care Provider] - 03/02/21 9:00 am [facility], [NON-STAFF] - As Needed Patient Instructions/Handouts: Community Acquired Pneumonia (DC) Activity/Diet/Wound Care/Special Instructions: no new prescriptions Discharge Disposition: HOME SELF-CARE
== END 2021-02-28 16:35 | disposition home or self-care (01) | DRG 194 ==
LOC: SUPCPDRO 01:43 → EC 01:43 → 4SSUR 02:20
PROVIDERS: ADMIT Hospitalist; ATTEND Hospitalist
DX: J18.9 Pneumonia, unspecified organism (principal); E27.40 Unspecified adrenocortical insufficiency; D68.51 Activated protein C resistance; D68.2 Hereditary deficiency of other clotting factors; J45.901 Unspecified asthma with (acute) exacerbation; J44.0 Chronic obstructive pulmonary disease with (acute) lower respiratory infection; J44.1 Chronic obstructive pulmonary disease with (acute) exacerbation; G35 Multiple sclerosis; E86.0 Dehydration; I95.9 Hypotension, unspecified; D50.9 Iron deficiency anemia, unspecified; R11.0 Nausea; I83.90 Asymptomatic varicose veins of unspecified lower extremity; K22.0 Achalasia of cardia; I73.00 Raynaud's syndrome without gangrene; E03.9 Hypothyroidism, unspecified; K21.9 Gastro-esophageal reflux disease without esophagitis; F51.04 Psychophysiologic insomnia; D64.9 Anemia, unspecified; R32 Unspecified urinary incontinence; G89.4 Chronic pain syndrome; M79.7 Fibromyalgia; M81.0 Age-related osteoporosis without current pathological fracture; G47.00 Insomnia, unspecified; M19.91 Primary osteoarthritis, unspecified site; R53.1 Weakness; Z86.19 Personal history of other infectious and parasitic diseases; F32.9 Major depressive disorder, single episode, unspecified; F41.0 Panic disorder [episodic paroxysmal anxiety]; F40.240 Claustrophobia; I10 Essential (primary) hypertension; Z91.81 History of falling; Z96.643 Presence of artificial hip joint, bilateral; Z96.652 Presence of left artificial knee joint; Z96.653 Presence of artificial knee joint, bilateral; Z90.49 Acquired absence of other specified parts of digestive tract; Z98.84 Bariatric surgery status; Z90.3 Acquired absence of stomach [part of]; Z88.1 Allergy status to other antibiotic agents; Z88.8 Allergy status to other drugs, medicaments and biological substances; Z88.6 Allergy status to analgesic agent; Z88.5 Allergy status to narcotic agent; Z79.890 Hormone replacement therapy; Z79.899 Other long term (current) drug therapy; Z86.718 Personal history of other venous thrombosis and embolism; Z87.440 Personal history of urinary (tract) infections
CPT/HCPCS: 71046; 80053; 81003; 82607; 82728; 83540; 83550; 83735; 84100; 84145; 84484; 85025; 94640; 99285

== ENCOUNTER → 2021-05-09 | Outpatient (CLI) | payer MEDICARE, OTHER ==
[2021-05-09 21:39] LABS: Basophils # (A) 0.01 X 10*3/uL (0.00-0.10); Basophils % (A) 0.1 %; Eosinophils # (A) 0.01 X 10*3/uL (0.04-0.35); Eosinophils % (A) 0.1 %; HCT 38.9 % (37.2-46.3); HGB 11.7 g/dL (12.0-15.0); Lymphocytes # (A) 0.97 X 10*3/uL (0.90-5.00); MCH 28.3 pg (27.0-32.0); MCHC 30.1 g/dL (32.0-37.0); MCV 94.2 fL (80.0-97.0); Mean Platelet Volume 10.4 fL (9.5-12.2); Monocytes # (A) 0.38 X 10*3/uL (0.20-1.00); Monocytes % (A) 3.5 %; Neutrophils # (A) 9.26 X 10*3/uL (1.80-7.70); Neutrophils % (A) 86.3 %; Platelet Count 318 X 10*3/uL (140-440); RBC 4.13 X 10*6/uL (4.10-5.20); RDW 16.4 % (11.5-14.5); WBC 10.74 X 10*3/uL (4.50-10.00)
[2021-05-09 23:27] LABS: Immunoglobulin M 49.9 mg/dL (40.0-280.0)
== END | disposition home or self-care (01) ==
LOC: LABWHC1 05-04 11:24
PROVIDERS: ATTEND Internal Medicine
DX: R05 Cough (principal)
CPT/HCPCS: 36415; 82784; 85025

== ENCOUNTER → 2021-06-05 | Outpatient (CLI) | payer MEDICARE, OTHER ==
[2021-06-05 14:27] LABS: INR 0.9 (<1.2); Partial Thromboplastin Time 21.1 sec (22.0-30.0); Prothrombin Time 9.4 sec (9.0-12.0)
[2021-06-05 19:12] LABS: MCH 29.8 pg (27.0-32.0); MCHC 30.8 g/dL (32.0-37.0); MCV 96.8 fL (80.0-97.0); Mean Platelet Volume 9.4 fL (9.5-12.2); Platelet Count 405 X 10*3/uL (140-440); RBC 4.03 X 10*6/uL (4.10-5.20); RDW 17.1 % (11.5-14.5); WBC 9.58 X 10*3/uL (4.50-10.00)
[2021-06-06 03:46] LABS: % Iron Saturation 13.62 (12.00-45.00); ALT 20 U/L (8-44); AST 23 U/L (13-35); African American GFR (CKD) 75.6 (60.0-200.0); Albumin 4.1 g/dL (3.8-4.9); Albumin/Globulin Ratio 2.05 (1.60-3.17); Alkaline Phosphatase 52 U/L (41-126); BUN/Creat Ratio 21.78 Ratio (12.00-20.00); Blood Urea Nitrogen 19.6 mg/dL (9.0-27.0); Carbon Dioxide 24.9 mmol/L (20.0-27.5); Chloride 95 mmol/L (96-109); Chol/HDL Ratio 3.38 Ratio; Glucose 138 mg/dL (70-110); Iron 49 ug/dL (50-170); LDL Cholesterol,Calculated 110.2 mg/dL (0.0-131.0); Magnesium 2.5 mg/dL (1.5-2.4); Non-African American GFR(CKD) 65.2 (60.0-200.0); Phosphorus 3.2 mg/dL (2.4-5.1); Potassium 4.3 mmol/L (3.5-5.5); Prealbumin 31.1 mg/dL (18.0-42.0); Sodium 134 mmol/L (135-145); Total Iron Binding Capacity 361 ug/dL (228-460); Total Protein 6.1 g/dL (6.2-8.2)
[2021-06-06 05:03] LABS: Folate, Serum >20.00 ng/mL (4.40-31.00)
[2021-06-06 12:44] LABS: Zinc, Serum 97 ug/dL (60-130)
[2021-06-06 14:54] LABS: Vit B1(Thiamine) 49 ug/L (38-122)
== END | disposition home or self-care (01) ==
LOC: LABWHC1 12:39
PROVIDERS: ATTEND Surgery Plastic and Reconstructive Surgery
DX: E89.1 Postprocedural hypoinsulinemia (principal); E44.0 Moderate protein-calorie malnutrition; E55.9 Vitamin D deficiency, unspecified; K74.1 Hepatic sclerosis; D50.8 Other iron deficiency anemias; K50.90 Crohn's disease, unspecified, without complications; N19 Unspecified kidney failure
CPT/HCPCS: 36415; 80053; 80061; 82306; 82525; 82607; 82728; 82746; 83036; 83540; 83550; 83735; 83970; 84100; 84134; 84255; 84425; 84443; 84590; 84630; 85027; 85610; 85730